=== PATIENT | male | born 1955 | race Caucasian/White ===

== ENCOUNTER 2020-06-30 10:03 | Outpatient (REF) | payer MEDICARE, MEDICAID, SELFPAY ==
[2020-06-30 11:47] LABS: MANUAL DIFF FLAG NO
[2020-06-30 11:55] LABS: Basophils Absolute Auto 0.1 X10*3/uL (0.0-0.2); Basophils Percent Auto 0.5 % (0-2); Eosinophils Absolute Auto 0.1 X10*3/uL (0.0-0.4); Hematocrit 48.7 % (42-52); Hemoglobin 16.6 g/dl (14.0-18.0); Imm Gran Abs Auto 0.07 X10*3/uL (0.00-0.03); Imm Gran Pct Auto 0.6 % (0.0-0.4); Lymphocytes Absolute Auto 3.1 X10*3/uL (1.2-4.9); Lymphocytes Percent Auto 27.3 % (20-40); Mean Corpuscular HGB Conc 34.1 g/dl (31.0-36.0); Mean Corpuscular Volume 93.8 fL (80-98); Mean Platelet Volume 11.2 fL (9.4-12.4); Monocytes Absolute Auto 0.9 X10*3/uL (0.1-1.2); Monocytes Percent Auto 8.2 % (2-11); Neutrophils Absolute Auto 7.1 X10*3/uL (2.0-8.3); Neutrophils Percent Auto 62.4 % (45-73); Platelet Count 297 X10*3/uL (160-400); Red Blood Count 5.19 X10*6/uL (4.60-5.80); Red Cell Distribution Width 12.9 % (11.0-16.0); White Blood Count 11.4 X10*3/uL (4.8-10.8)
== END 2020-06-30 10:04 | disposition home or self-care (01) ==
LOC: HO.10HDL 10:03
PROVIDERS: Visit Provider Internal Medicine Pulmonary Disease
DX: Z91.09 Other allergy status, other than to drugs and biological substances (principal)
CPT/HCPCS: 36415; 82785; 85025; 86003

== ENCOUNTER 2020-07-11 11:34 | Emergency (ER) | payer MEDICARE, MEDICAID, SELFPAY ==
[2020-07-11 11:51] VITALS: BP 128/68; PULSE 71; RESP 16; TEMP 36.6; O2SAT 98; BMI 27.1
--- NOTE | 2020-07-11 11:57 | ED.LOWEXIN ---
HPI - Extremity Injury (Lower) General Chief Complaint: Extremity Injury, Lower Stated Complaint: ANKLE SWELLING Time Seen by Provider: 07/11/20 11:57 Source: patient History of Present Illness HPI Narrative: 64-year-old male with a past medical history of asthma hyperlipidemia, HTN, dm c/o left calf pain x1 week s/p walk /running up hill with associated left foot/ ankle ecchymosis/swelling. reports had muscle cramp to left calf and then pain radiated distally. admits to pain worse with ambulation /weight. Denies direct trauma / falls, numbness/tingling, history of clots, SOB Related Data Allergies Allergy/AdvReac Type Severity Reaction Status Date / Time simvastatin AdvReac Unknown myalgia Verified 05/10/20 00:00 From WELLBUTRIN Allergy Mild RASH Uncoded 06/16/20 16:10 REAGAN INHIBITORS Allergy Unknown cough,angio Uncoded 05/10/20 00:00 edema Review of Systems Review of Systems: Constitutional: No Weight loss, No Fever, No Chills Cardiovascular: No Chest Pain, No SOB Respiratory: No Cough, No Sputum Musculoskeletal: + joint pain, No Myalgias, + Joint Swelling, + Left calf pain Skin: No Skin Lesions, No rash, + ecchymosis to left foot/ankle Neuro: No Weakness, No Numbness, No Paresthesias Yes all other systems are reviewed and are negative [facility] Past Medical History Attestation statement: The following information was validated with the patient. Medical History Asthma High cholesterol HTN (hypertension) IDDM (insulin dependent diabetes mellitus) No known health problems Social History Social History Advance Directives: Yes Advance Directives on File: Yes Advance Directives Date on File: 06/30/20 Physical Exam Vital Signs: Vital Signs: Vital Signs Temp Pulse Resp BP Pulse Ox 07/11/20 11:51 97.9 F 71 16 128/68 98 Body Mass Index 27.1 Const: General: cooperative and healthy appearing Orientation/consciousness: patient oriented x3 Limitations: no limitations HENMT: Head: Yes normal to inspection Ears: hearing grossly normal bilaterally General nose exam: Normal external nose present Face and sinus: Yes normal facial exam Eyes: General: appearance normal, both eyes and all related structures EOM: EOMs intact bilaterally Neck: Neck: Yes normal visual inspection Resp: Effort & Inspection: normal respiratory effort Cardio: Rate: regular rate Skin: Rashes: no rashes Wounds: no wounds Neuro: General: patient oriented x3 Gait exam (Neuro): Normal gait present Extrem: Other: + left calf TTP, + L foot > ankle ecchymosis/swelling with lateral foot TTP. No ankle tenderness. FROM and NV intact . No crepitus Gomez test negative Course Course Course Narrative: -1248-- foot x-ray without acute or healing fracture. No acute findings - ultrasound without evidence of DVT - imaging results discussed with patient including worrisome signs and symptoms and strict return precautions. Patient is to follow-up with PCP MDM - Extremity Injury (Lower) MDM Narrative Medical decision making narrative: On exam VSS, NAD/ well-appearing. Left calf is tender with swelling /ecchymosis noted to left foot / ankle. Gomez test negative. Concern for DVT vs superficial ruptured vessel vs Achilles injury vs tendon/ligamental injury. Lower concern for fracture Plan: X-ray, ultrasound Discharge Plan Discharge Clinical Impression: Myalgia, Ecchymosis Calf pain Qualifiers: Laterality: left Qualified Code(s): M79.662 - Pain in left lower leg Patient Disposition: Home, Self-Care Instructions: Musculoskeletal Pain (ED) Additional Instructions: your x-ray did not show any acute fractures or dislocation The ultrasound was also negative for any blood clot Ice and elevate your leg at home You need to have close follow-up with her doctor If area is worsening, swelling increases, you have weakness, fever, or unable to ambulate return to the ED Referrals: Alfredo Lu MD [Primary Care Provider] - 5 days
--- NOTE | 2020-07-11 12:12 | US_ITS ---
EXAMINATION: US VENOUS ULTRASOUND WITH DOPPLER LOWER EXTREMITY, LEFT CLINICAL INFORMATION: Left lower extremity edema, pain. Assess for occult DVT. COMPARISON: Radiographs left foot 07/11/2020 TECHNIQUE: Ultrasound of the deep veins is performed from the hip to the calf with compression sonography and color and pulse Doppler assessment. Spectral analysis with color-flow imaging is performed. FINDINGS: There is normal venous compression and respiratory variation and augmented flow. The visualized common femoral vein, superficial femoral vein, profunda femoral vein, popliteal vein, and visualized mid calf peroneal and posterior tibial venous segments show no evidence of deep venous thrombosis. No popliteal fossa cyst. IMPRESSION: No DVT demonstrated in the left lower extremity.
--- NOTE | 2020-07-11 12:12 | XR_ITS ---
EXAMINATION: XR FOOT, LEFT CLINICAL INFORMATION: Foot swelling, ecchymosis COMPARISON: None TECHNIQUE: AP, lateral, and oblique views of the left foot. FINDINGS: There is no acute or healing fracture, dislocation, or destructive process. Mild joint narrowing interphalangeal joints third and fourth toes. No erosive changes. The retrocalcaneal recess is preserved. There is borderline posterior calcaneal spur and some focal mineralization proximal plantar fascia. The midfoot is unremarkable. IMPRESSION: 1. No acute or healing fracture, dislocation, destructive process. 2. Mineralization proximal plantar fascia. Small posterior calcaneal spur.
== END 2020-07-11 13:40 | disposition home or self-care (01) ==
PROVIDERS: Emergency Provider Emergency Medicine; PCP Family Medicine
DX: M79.662 Pain in left lower leg (principal); M79.10 Myalgia, unspecified site; R58 Hemorrhage, not elsewhere classified; I10 Essential (primary) hypertension; E11.9 Type 2 diabetes mellitus without complications; J45.909 Unspecified asthma, uncomplicated; E78.5 Hyperlipidemia, unspecified
CPT/HCPCS: 73630; 93971; 99284

== ENCOUNTER 2020-08-13 08:19 | Outpatient (REF) | payer MEDICARE, MEDICAID, SELFPAY ==
[2020-08-13 09:26] LABS: Estimated Average Glucose 154 mg/dL
[2020-08-13 09:43] LABS: Alanine Aminotransferase 25 U/L (0-40); Glucose Fasting 136 mg/dL (60-99)
[2020-08-13 09:51] LABS: Microalbum/Creatinine Ratio Ur 6.8 ug/mg cr
== END 2020-08-13 08:20 | disposition home or self-care (01) ==
LOC: HO.LAB 08:19
PROVIDERS: PCP Family Medicine; Visit Provider Family Medicine
DX: E11.9 Type 2 diabetes mellitus without complications (principal); E78.00 Pure hypercholesterolemia, unspecified; Z79.899 Other long term (current) drug therapy
CPT/HCPCS: 82043; 82550; 82947; 83036; 84460

== ENCOUNTER 2020-09-14 08:00 | Outpatient (REF) | payer MEDICARE, MEDICAID, SELFPAY | END 2020-09-14 08:01 | disposition home or self-care (01) | LOC: HO.MDS 08:00 | PROVIDERS: PCP Family Medicine; Visit Provider Internal Medicine Pulmonary Disease | DX: J45.909 Unspecified asthma, uncomplicated (principal) | CPT/HCPCS: 96372; J2357 ==

== ENCOUNTER → 2020-10-11 12:57 | Outpatient (BNVA) | payer MEDICARE, MEDICAID, SELFPAY | PROVIDERS: PCP Family Medicine; Visit Provider Urology | DX: E29.1 Testicular hypofunction (principal); Z79.899 Other long term (current) drug therapy | CPT/HCPCS: 96372; 99212 ==

== ENCOUNTER 2020-10-12 11:22 | Outpatient (REF) | payer MEDICARE, MEDICAID, SELFPAY | END 2020-10-12 11:23 | disposition home or self-care (01) | LOC: HO.MDS 11:22 | PROVIDERS: PCP Family Medicine; Visit Provider Internal Medicine Pulmonary Disease | DX: J45.50 Severe persistent asthma, uncomplicated (principal) | CPT/HCPCS: 96372; J2357 ==

== ENCOUNTER 2020-11-09 07:53 | Outpatient (REF) | payer MEDICARE, MEDICAID, SELFPAY | END 2020-11-09 07:54 | disposition home or self-care (01) | LOC: HO.MDS 07:53 | PROVIDERS: PCP Family Medicine; Visit Provider Internal Medicine Pulmonary Disease | DX: J45.50 Severe persistent asthma, uncomplicated (principal) | CPT/HCPCS: 96372; J2357 ==

== ENCOUNTER 2020-12-07 07:54 | Outpatient (REF) | payer MEDICARE, MEDICAID, SELFPAY | END 2020-12-07 07:55 | disposition home or self-care (01) | LOC: HO.MDS 07:54 | PROVIDERS: PCP Family Medicine; Visit Provider Internal Medicine Pulmonary Disease | DX: J45.50 Severe persistent asthma, uncomplicated (principal) | CPT/HCPCS: 96372; J2357 ==

== ENCOUNTER → 2020-12-16 10:27 | Outpatient (BNVA) | payer MEDICARE, MEDICAID, SELFPAY | PROVIDERS: PCP Family Medicine; Visit Provider Internal Medicine Pulmonary Disease ==

== ENCOUNTER 2021-01-11 08:57 | Outpatient (REF) | payer MEDICARE, MEDICAID, SELFPAY | END 2021-01-11 08:58 | disposition home or self-care (01) | LOC: HO.MDS 08:57 | PROVIDERS: PCP Family Medicine; Visit Provider Internal Medicine Pulmonary Disease | DX: J45.50 Severe persistent asthma, uncomplicated (principal) | CPT/HCPCS: 96372; J2357 ==

== ENCOUNTER → 2021-01-25 15:36 | Outpatient (BNVA) | payer MEDICARE, MEDICAID, SELFPAY | PROVIDERS: PCP Family Medicine; Visit Provider Internal Medicine | DX: J44.9 Chronic obstructive pulmonary disease, unspecified (principal); J45.50 Severe persistent asthma, uncomplicated; E29.1 Testicular hypofunction; Z79.899 Other long term (current) drug therapy | CPT/HCPCS: 99212 ==

== ENCOUNTER 2021-02-04 08:31 | Outpatient (REF) | payer MEDICARE, MEDICAID, SELFPAY ==
[2021-02-08 12:46] LABS: Testosterone, Total 1314 ng/dL (250-1100)
== END 2021-02-04 08:32 | disposition home or self-care (01) ==
LOC: HO.LAB 08:31
PROVIDERS: PCP Family Medicine; Visit Provider Urology
DX: E29.1 Testicular hypofunction (principal)
CPT/HCPCS: 36415; 84403

== ENCOUNTER 2021-02-06 08:57 | Outpatient (REF) | payer MEDICARE, MEDICAID, SELFPAY | END 2021-02-06 08:58 | disposition home or self-care (01) | LOC: HO.MDS 08:57 | PROVIDERS: PCP Family Medicine; Visit Provider Internal Medicine | DX: J45.50 Severe persistent asthma, uncomplicated (principal) | CPT/HCPCS: 96372; J2357 ==

== ENCOUNTER 2021-02-08 12:14 | Outpatient (REF) | payer MEDICARE, MEDICAID, SELFPAY ==
[2021-02-08 13:57] LABS: MANUAL DIFF FLAG NO
[2021-02-08 14:03] LABS: Basophils Absolute Auto 0.1 X10*3/uL (0.0-0.2); Basophils Percent Auto 0.5 % (0-2); Eosinophils Absolute Auto 0.1 X10*3/uL (0.0-0.4); Eosinophils Percent Auto 0.5 % (0-4); Hematocrit 48.7 % (42-52); Hemoglobin 16.2 g/dl (14.0-18.0); Imm Gran Abs Auto 0.07 X10*3/uL (0.00-0.03); Imm Gran Pct Auto 0.7 % (0.0-0.4); Lymphocytes Absolute Auto 2.6 X10*3/uL (1.2-4.9); Lymphocytes Percent Auto 25.1 % (20-40); Mean Corpuscular HGB Conc 33.3 g/dl (31.0-36.0); Mean Corpuscular Volume 96.1 fL (80-98); Mean Platelet Volume 11.8 fL (9.4-12.4); Monocytes Absolute Auto 0.9 X10*3/uL (0.1-1.2); Monocytes Percent Auto 8.8 % (2-11); Neutrophils Absolute Auto 6.6 X10*3/uL (2.0-8.3); Neutrophils Percent Auto 64.4 % (45-73); Platelet Count 311 X10*3/uL (160-400); Red Blood Count 5.07 X10*6/uL (4.60-5.80); Red Cell Distribution Width 13.2 % (11.0-16.0); White Blood Count 10.2 X10*3/uL (4.8-10.8)
[2021-02-08 14:46] LABS: Free T4 (Free Thyroxine) 0.96 ng/dL (0.71-1.85); Thyroid Stimulating Hormone 1.24 uIU/mL (0.32-4.0)
[2021-02-08 14:47] LABS: Alanine Aminotransferase 28 U/L (0-40); Albumin Level 4.4 g/dL (3.5-5.0); Alkaline Phosphatase 68 U/L (39-117); Anion Gap 14 (12-20); Aspartate Amino Transferase 25 U/L (5-37); Bilirubin Total 0.3 mg/dL (0.0-1.0); Blood Urea Nitrogen 12 mg/dL (9-16); Calcium 9.7 mg/dL (8.4-10.2); Carbon Dioxide 29 mmol/L (22-29); Chloride 101 mmol/L (96-108); Estimated Glomerular Filt Rate > 60; Glucose Random 126 mg/dL (60-115); Potassium 4.3 mmol/L (3.3-5.1); Sodium 140 mmol/L (135-145); Total Protein 7.1 g/dL (6.5-8.0)
[2021-02-08 14:54] LABS: Erythrocyte Sedimentation Rate 1 MM/HR (0-15)
== END 2021-02-08 12:15 | disposition home or self-care (01) ==
LOC: HO.10HDL 12:14
PROVIDERS: Internal Medicine; Visit Provider Family Medicine
DX: R63.4 Abnormal weight loss (principal)
CPT/HCPCS: 36415; 80053; 84439; 84443; 85025; 85652

== ENCOUNTER → 2021-02-14 08:44 | Outpatient (BNVA) | payer MEDICARE, MEDICAID, SELFPAY | PROVIDERS: PCP Family Medicine; Visit Provider Urology | DX: N40.0 Benign prostatic hyperplasia without lower urinary tract symptoms (principal); R59.0 Localized enlarged lymph nodes; E29.1 Testicular hypofunction; N52.9 Male erectile dysfunction, unspecified | CPT/HCPCS: 51798; 99212 ==

== ENCOUNTER 2021-03-07 08:59 | Outpatient (REF) | payer MEDICARE, MEDICAID, SELFPAY | END 2021-03-07 09:00 | disposition home or self-care (01) | LOC: HO.MDS 08:59 | PROVIDERS: PCP Family Medicine; Visit Provider Internal Medicine | DX: J45.50 Severe persistent asthma, uncomplicated (principal) | CPT/HCPCS: 96372; J2357 ==

== ENCOUNTER 2021-04-05 08:54 | Outpatient (REF) | payer MEDICARE, MEDICAID, SELFPAY | END 2021-04-05 08:55 | disposition home or self-care (01) | LOC: HO.MDS 08:54 | PROVIDERS: PCP Family Medicine; Visit Provider Internal Medicine | DX: J45.50 Severe persistent asthma, uncomplicated (principal) | CPT/HCPCS: 96372; J2357 ==

== ENCOUNTER 2021-04-17 14:00 | Outpatient (REF) | payer MEDICARE, MEDICAID, SELFPAY ==
[2021-04-17 15:08] LABS: Blood Urea Nitrogen 16 mg/dL (9-16); Estimated Glomerular Filt Rate > 60
== END 2021-04-17 14:01 | disposition home or self-care (01) ==
LOC: HO.LAB 14:00
PROVIDERS: PCP Family Medicine; Visit Provider Urology
DX: R59.0 Localized enlarged lymph nodes (principal)
CPT/HCPCS: 36415; 82565; 84520

== ENCOUNTER 2021-04-19 08:00 | Outpatient (REF) | payer MEDICARE, MEDICAID, SELFPAY ==
--- NOTE | ~2021-04-19 | XR_ITS ---
EXAMINATION: XR SHOULDER, RIGHT CLINICAL INFORMATION: Right shoulder pain COMPARISON: 01/12/2011 TECHNIQUE: Three views of the right shoulder. FINDINGS: There is no evidence of acute fracture or dislocation of the right shoulder. There is some spurring seen about the inferior glenohumeral joint with joint space maintained. There is some calcification about the coracoclavicular ligament without widening. XR/XR shoulder RT min 2V IMPRESSION: No evidence of acute fracture, dislocation, or calcific tendinitis of the right shoulder. Mild inferior glenohumeral joint degenerative change.
== END 2021-04-19 08:01 | disposition home or self-care (01) ==
LOC: HO.HOSX 08:00
PROVIDERS: Visit Provider Orthopaedic Surgery
DX: M25.511 Pain in right shoulder (principal); M54.12 Radiculopathy, cervical region
CPT/HCPCS: 73030; 99202

== ENCOUNTER → 2021-04-24 10:25 | Outpatient (BNVA) | payer MEDICARE, MEDICAID, SELFPAY | PROVIDERS: PCP Family Medicine; Visit Provider Internal Medicine | DX: J44.9 Chronic obstructive pulmonary disease, unspecified (principal); J30.9 Allergic rhinitis, unspecified; Z79.899 Other long term (current) drug therapy | CPT/HCPCS: 99212 ==

== ENCOUNTER 2021-04-25 10:22 | Outpatient (REF) | payer MEDICARE, MEDICAID, SELFPAY ==
--- NOTE | ~2021-04-25 | CT_ITS ---
EXAMINATION: CT ABDOMEN AND PELVIS WITH CONTRAST CLINICAL INFORMATION: Enlarged lymph nodes COMPARISON: Previous CT of the abdomen and pelvis August 2010 TECHNIQUE: Multidetector volumetric images were obtained from the superior aspect of the liver through the pubic symphysis following administration 85 mL of Omnipaque 350 intravenous contrast. Sagittal and coronal reformatted images were obtained on the technologist's workstation. Oral contrast: Yes This CT examination was performed using dose optimization techniques as appropriate, variously including the following: *Automated exposure control *Adjustment of mA and/or kV according to patient size (this includes techniques or standardized protocols for targeted exams where dose is matched to indication/reason for exam; i.e. extremities or head) *Use of iterative reconstruction technique DLP: 316 mGy-cm FINDINGS: LUNG BASES: The visualized lung bases are unremarkable. LIVER, GALLBLADDER, AND BILIARY TREE: There is a small calcification in the right lobe of the liver. The liver is otherwise unremarkable. The gallbladder is unremarkable with no evidence of radiopaque gallstones, gallbladder wall thickening, or obvious pericholecystic inflammatory changes. PANCREAS: Unremarkable. SPLEEN: Unremarkable. ADRENAL GLANDS: Unremarkable. KIDNEYS AND URETERS: There is question of a tiny 1 mm stone in the upper pole of the right kidney. There is a 1 cm low-attenuation lesion in the lower pole right kidney suggestive of a cyst. There is mild cortical thinning or scarring in the upper pole of the left kidney. BLADDER: Not optimally distended. There may be mild diffuse bladder wall thickening. GASTROINTESTINAL TRACT: The small and large bowel are unremarkable. The appendix is unremarkable. ABDOMINAL WALL: No significant hernia is appreciated. LYMPH NODES: No enlarged lymph nodes are seen in the abdomen or pelvis. There is a shotty left inguinal lymphadenopathy. There is a slightly prominent right inguinal lymph node or 2 adjacent lymph nodes measuring 1.1 x 1.1 x 2.8 cm in AP transverse and longitudinal dimension. VASCULAR: There is evidence of atherosclerotic disease. No aneurysm is seen. PELVIC VISCERA: Unremarkable. OSSEOUS STRUCTURES: There are degenerative changes of the spine. CT/CT abdomen pelvis w con IMPRESSION: No adenopathy is seen in the abdomen and pelvis. Prominent right inguinal lymph node. Question mild diffuse bladder wall thickening. Small right renal cyst and question tiny nonobstructing right renal stone. Mild cortical thinning or scarring in the upper pole of the left kidney.
[2021-04-25] MEDS: iohexoL 350 MG/ML 100 ML INFUS..BTL 85 ML IV (11:00)
== END 2021-04-25 10:23 | disposition home or self-care (01) ==
LOC: HO.CT 10:22
PROVIDERS: PCP Family Medicine; Visit Provider Urology
DX: R59.0 Localized enlarged lymph nodes (principal)
CPT/HCPCS: 74177; Q9967

== ENCOUNTER 2021-04-27 08:43 | Outpatient (REF) | payer MEDICARE, MEDICAID, SELFPAY ==
--- NOTE | ~2021-04-27 | XR_ITS ---
EXAMINATION: XR CERVICAL SPINE CLINICAL INFORMATION: Neck pain with radiculopathy. COMPARISON: 02/27/2019 TECHNIQUE: Five views of the cervical spine, inclusive of flexion and extension views, were obtained. FINDINGS: No abnormal prevertebral soft tissue swelling is seen. No acute cervical spine fractures identified. There is significant degenerative disc disease with increased sclerosis, disc space narrowing, and prominent spurring C3-C7. There is some anterior neural foraminal encroachment from spurring of the joints of [place] seen at the C5-C6 and C6-C7 levels bilaterally. XR/XR cervical spine min 6V IMPRESSION: Cervical spondylosis C3-C7, as described. No acute fracture.
== END 2021-04-27 08:44 | disposition home or self-care (01) ==
LOC: HO.XRAY 08:43
PROVIDERS: PCP Family Medicine; Visit Provider Family Medicine
DX: M54.2 Cervicalgia (principal); M54.12 Radiculopathy, cervical region
CPT/HCPCS: 72052

== ENCOUNTER 2021-05-03 08:57 | Outpatient (REF) | payer MEDICARE, MEDICAID, SELFPAY | END 2021-05-03 08:58 | disposition home or self-care (01) | LOC: HO.MDS 08:57 | PROVIDERS: PCP Family Medicine; Visit Provider Internal Medicine | DX: J45.50 Severe persistent asthma, uncomplicated (principal) | CPT/HCPCS: 96372; J2357 ==

== ENCOUNTER 2021-05-31 08:26 | Outpatient (REF) | payer MEDICARE, MEDICAID, SELFPAY | END 2021-05-31 08:27 | disposition home or self-care (01) | LOC: HO.MDS 08:26 | PROVIDERS: PCP Family Medicine; Visit Provider Internal Medicine | DX: J45.50 Severe persistent asthma, uncomplicated (principal) | CPT/HCPCS: 96372; J2357 ==

== ENCOUNTER 2021-06-28 10:27 | Outpatient (REF) | payer MEDICARE, MEDICAID, SELFPAY | END 2021-06-28 10:28 | disposition home or self-care (01) | LOC: HO.MDS 10:27 | PROVIDERS: PCP Family Medicine; Visit Provider Internal Medicine | DX: J45.50 Severe persistent asthma, uncomplicated (principal) | CPT/HCPCS: 96372; J2357 ==

== ENCOUNTER 2021-07-15 07:35 | Outpatient (REF) | payer MEDICARE, MEDICAID, SELFPAY ==
[2021-07-15 08:44] LABS: Estimated Average Glucose 166 mg/dL; Hemoglobin A1c % 7.4 %
[2021-07-15 09:24] LABS: Alanine Aminotransferase 27 U/L (0-40); Anion Gap 11 (12-20); Carbon Dioxide 32 mmol/L (22-29); Chloride 103 mmol/L (96-108); Cholesterol 147 mg/dL; Estimated Glomerular Filt Rate > 60; Glucose Fasting 108 mg/dL (60-99); HDL Cholesterol 35 mg/dL; LDL Cholesterol Calculated 81 mg/dl; Potassium 5.1 mmol/L (3.3-5.1); Sodium 141 mmol/L (135-145); Triglycerides 155 mg/dL
== END 2021-07-15 07:36 | disposition home or self-care (01) ==
LOC: HO.LAB 07:35
PROVIDERS: PCP Family Medicine; Visit Provider Family Medicine
DX: I10 Essential (primary) hypertension (principal); E11.9 Type 2 diabetes mellitus without complications; E78.00 Pure hypercholesterolemia, unspecified; Z79.899 Other long term (current) drug therapy
CPT/HCPCS: 36415; 80051; 80061; 82550; 82565; 82947; 83036; 84460

== ENCOUNTER → 2021-07-25 09:08 | Outpatient (BNVA) | payer MEDICARE, MEDICAID, SELFPAY | PROVIDERS: PCP Family Medicine; Visit Provider Internal Medicine | DX: J30.9 Allergic rhinitis, unspecified (principal); J44.9 Chronic obstructive pulmonary disease, unspecified | CPT/HCPCS: 99212 ==

== ENCOUNTER 2021-07-26 09:56 | Outpatient (REF) | payer MEDICARE, MEDICAID, SELFPAY | END 2021-07-26 09:57 | disposition home or self-care (01) | LOC: HO.MDS 09:56 | PROVIDERS: PCP Family Medicine; Visit Provider Internal Medicine | DX: J45.50 Severe persistent asthma, uncomplicated (principal) | CPT/HCPCS: 96372; J2357 ==

== ENCOUNTER → 2021-08-07 09:04 | Outpatient (BNVA) | payer MEDICARE, MEDICAID, SELFPAY | PROVIDERS: PCP Family Medicine; Visit Provider Internal Medicine | DX: J45.50 Severe persistent asthma, uncomplicated (principal); J44.9 Chronic obstructive pulmonary disease, unspecified; J30.9 Allergic rhinitis, unspecified; Z79.51 Long term (current) use of inhaled steroids | CPT/HCPCS: 99212 ==

== ENCOUNTER 2021-08-15 09:16 | Outpatient (REF) | payer MEDICARE, MEDICAID, SELFPAY ==
--- NOTE | ~2021-08-15 | CT_ITS ---
EXAMINATION: CT ABDOMEN AND PELVIS WITHOUT CONTRAST CLINICAL INFORMATION: Left mid quadrant mass. Question hernia. COMPARISON: Previous CT of the abdomen and pelvis February 2021. TECHNIQUE: Multidetector volumetric imaging was performed from the superior aspect of the liver through the pubic symphysis. Sagittal and coronal reformatted images were obtained on the technologist's workstation. This CT examination was performed using dose optimization techniques as appropriate, variously including the following: *Automated exposure control *Adjustment of mA and/or kV according to patient size (this includes techniques or standardized protocols for targeted exams where dose is matched to indication/reason for exam; i.e. extremities or head) *Use of iterative reconstruction technique DLP: 420 mGy-cm. FINDINGS: LUNG BASES: The visualized lung bases are unremarkable. LIVER, GALLBLADDER, AND BILIARY TREE: There is a small calcification in the right lobe of the liver that is stable. The liver is otherwise unremarkable. The gallbladder is unremarkable. There is no biliary duct dilatation. PANCREAS: Unremarkable. SPLEEN: Unremarkable. ADRENAL GLANDS: Unremarkable. KIDNEYS AND URETERS: The kidneys are normal in size, shape, and attenuation. No hydronephrosis, hydroureter, or calculi seen. No perinephric stranding. BLADDER: Unremarkable. GASTROINTESTINAL TRACT: The small and large bowel are unremarkable. The appendix is unremarkable. ABDOMINAL WALL: There is slight stranding of the fat of the left abdominal wall overlying the left rectus muscle, for example axial image 52. No focal mass, hernia or fluid collection is seen. LYMPH NODES: Normal. VASCULAR: There is evidence of atherosclerotic disease. PELVIC VISCERA: Unremarkable. OSSEOUS STRUCTURES: There are degenerative changes of the spine. CT/CT abdomen pelvis wo con IMPRESSION: No abdominal wall mass or hernia seen. Mild asymmetric fat stranding over the left rectus muscle. Severe atherosclerotic disease.
== END 2021-08-15 09:17 | disposition home or self-care (01) ==
LOC: HO.CT 09:16
PROVIDERS: PCP Family Medicine; Visit Provider Family Medicine
DX: R22.2 Localized swelling, mass and lump, trunk (principal)
CPT/HCPCS: 74176

== ENCOUNTER → 2021-08-16 13:11 | Outpatient (BNVA) | payer MEDICARE, MEDICAID, SELFPAY | PROVIDERS: PCP Family Medicine; Visit Provider Urology | DX: N40.0 Benign prostatic hyperplasia without lower urinary tract symptoms (principal); N52.9 Male erectile dysfunction, unspecified | CPT/HCPCS: 99212 ==

== ENCOUNTER 2021-08-23 09:51 | Outpatient (REF) | payer MEDICARE, MEDICAID, SELFPAY | END 2021-08-23 09:52 | disposition home or self-care (01) | LOC: HO.MDS 09:51 | PROVIDERS: PCP Family Medicine; Visit Provider Internal Medicine | DX: J45.50 Severe persistent asthma, uncomplicated (principal) | CPT/HCPCS: 96372; J2357 ==

== ENCOUNTER 2021-09-20 10:02 | Outpatient (REF) | payer MEDICARE, MEDICAID, SELFPAY | END 2021-09-20 10:03 | disposition home or self-care (01) | LOC: HO.MDS 10:02 | PROVIDERS: PCP Family Medicine; Visit Provider Internal Medicine | DX: J45.50 Severe persistent asthma, uncomplicated (principal) | CPT/HCPCS: 96372; J2357 ==

== ENCOUNTER 2021-10-05 08:53 | Outpatient (REF) | payer MEDICARE, MEDICAID, SELFPAY ==
[2021-10-05 10:28] LABS: Hematocrit 45.4 % (42.0-52.0); Hemoglobin 15.6 g/dl (14.0-18.0); Mean Corpuscular HGB Conc 34.4 g/dl (31.0-36.0); Mean Corpuscular Volume 93.2 fL (80.0-98.0); Platelet Count 272 X10*3/uL (160-400); Red Blood Count 4.87 X10*6/uL (4.60-5.80); Red Cell Distribution Width 13.5 % (11.0-16.0); White Blood Count 9.2 X10*3/uL (4.8-10.8)
[2021-10-05 11:26] LABS: PSA,Total (Free>4and<10) 3.57 ng/mL (0.00-4.00)
[2021-10-12 11:15] LABS: Testosterone, Total 1340 ng/dL (250-1100)
== END 2021-10-05 08:54 | disposition home or self-care (01) ==
LOC: HO.10HDL 08:53
PROVIDERS: Visit Provider Urology
DX: Z12.5 Encounter for screening for malignant neoplasm of prostate (principal); E29.1 Testicular hypofunction; N13.8 Other obstructive and reflux uropathy; N40.1 Benign prostatic hyperplasia with lower urinary tract symptoms
CPT/HCPCS: 36415; 84153; 84403; 85027

== ENCOUNTER → 2021-10-10 12:46 | Outpatient (BNVA) | payer MEDICARE, MEDICAID, SELFPAY | PROVIDERS: PCP Family Medicine; Visit Provider Urology | DX: Z13.89 Encounter for screening for other disorder (principal) | CPT/HCPCS: Q3014 ==

== ENCOUNTER 2021-10-18 10:01 | Outpatient (REF) | payer MEDICARE, MEDICAID, SELFPAY | END 2021-10-18 10:02 | disposition home or self-care (01) | LOC: HO.MDS 10:01 | PROVIDERS: PCP Family Medicine; Visit Provider Internal Medicine | DX: J45.50 Severe persistent asthma, uncomplicated (principal) | CPT/HCPCS: 96372; J2357 ==

== ENCOUNTER 2021-10-30 20:07 | Emergency (ER) | payer MEDICARE, MEDICAID, SELFPAY ==
--- NOTE | ~2021-10-30 | XR_ITS ---
EXAMINATION: XR FOOT, LEFT CLINICAL INFORMATION: Infection. Concern for osteomyelitis. COMPARISON: None TECHNIQUE: AP, lateral, and oblique views of the left foot. FINDINGS: The bones and soft tissues are normal. No fracture. Alignment is anatomic. Joint spaces are maintained. XR/XR foot LT min 3V IMPRESSION: Normal left foot.
[2021-10-30 20:16] VITALS: BP 146/56; PULSE 79; RESP 16; TEMP 36.8; O2SAT 97; BMI 26.6
--- NOTE | 2021-10-30 20:35 | ED_ITS ---
HPI - Skin/Abscess/Foreign Bdy General Chief complaint: Skin/Abscess/Foreign Body Stated complaint: left foot painful and swollen Time Seen by Provider: 10/30/21 20:32 History of Present Illness HPI narrative: Patient complains of painful red area on the top of his left foot for 2-3 days, no fever no injury Related Data Home Medications Medication Instructions Recorded Confirmed acetaminophen 325 mg tablet 650 mg PO Q4H PRN 08/19/20 01/25/21 fluticasone propionate 110 2 puff PO BID 08/19/20 01/25/21 mcg/actuation HFA aerosol inhaler fluticasone propionate 50 1 spray INTRANASAL DAILY 08/19/20 01/25/21 mcg/actuation nasal spray,suspension hydrochlorothiazide 12.5 mg 12.5 mg PO DAILY 08/19/20 01/25/21 tablet insulin detemir U-100 100 unit SUBCUT 08/19/20 01/25/21 unit/mL subcutaneous solution losartan 50 mg tablet 50 mg PO DAILY 08/19/20 01/25/21 metformin 1,000 mg tablet 1,000 mg PO BID 08/19/20 01/25/21 montelukast 10 mg tablet 10 mg PO DAILY 08/19/20 01/25/21 rosuvastatin 5 mg tablet 5 mg PO DAILY 08/19/20 01/25/21 trazodone 100 mg tablet 500 mg PO BEDTIME 08/19/20 01/25/21 umeclidinium 62.5 INHALATION 08/19/20 01/25/21 mcg/actuation blister powder for inhalation blood sugar diagnostic #10 ea 10/11/20 01/25/21 insulin syringe-needle U-100 #10 ea 10/11/20 01/25/21 0.5 mL 31 gauge x 5/16 lancets 28 gauge #100 ea 10/11/20 01/25/21 albuterol sulfate 90 2 puff INHALATION Q6H PRN 01/25/21 01/25/21 mcg/actuation aerosol inhaler (ProAir HFA) naproxen 500 mg tablet 500 mg PO DAILY PRN tab 04/24/21 cetirizine 10 mg tablet 10 mg PO DAILY 08/07/21 omeprazole 20 mg 20 mg PO DAILY PRN 08/07/21 capsule,delayed release meclizine 12.5 mg tablet 12.5 mg PO BID 08/16/21 omeprazole 40 mg 40 mg PO DAILY 08/16/21 capsule,delayed release metoprolol succinate 25 mg 25 mg PO DAILY 10/10/21 tablet,extended release 24 hr Previous Rx's Medication Instructions Recorded Xolair 150 mg/mL subcutaneous 300 mg (2 mL) SUBCUT Q4W 30 Days 01/31/21 syringe (omalizumab) #2 ml NS imipramine HCl 10 mg tablet 10 mg PO BID 90 Days #180 tab 06/08/21 tadalafil 5 mg tablet 5 mg PO DAILY PRN 90 Days #90 tab 07/04/21 syringe with needle, safety 3 mL #4 ea 08/09/21 22 gauge x 1 1/2 (BD Eclipse Luer-Stefan) terazosin 10 mg capsule 10 mg PO BEDTIME 90 Days #90 cap 08/16/21 azithromycin 250 mg tablet 250 mg PO 3XW #45 tab 09/06/21 tadalafil 10 mg tablet 10 mg PO DAILY 90 Days #90 tab 10/10/21 testosterone cypionate 200 mg/mL 100 mg (0.5 mL) IM QWEEK 28 Days 10/10/21 intramuscular oil #2 ml (Depo-Testosterone) cephalexin 500 mg tablet 500 mg PO QID 7 Days #28 tab 10/30/21 Allergies Allergy/AdvReac Type Severity Reaction Status Date / Time REAGAN Inhibitors Allergy Mild Unknown Verified 10/30/21 20:22 bupropion [From Allergy Mild Unknown Verified 10/30/21 20:22 Wellbutrin] simvastatin AdvReac Unknown myalgia Verified 10/30/21 20:22 Review of Systems Verdana 4l Review of Systems: Verdana 4d Verdana 4d Positive for red area on left foot which is painful Negatives no fever no chills no dizziness no weakness no headache no neck pain no back pain no chest pain no ankle or knee pain no wound no numbness weakness or tingling no calf pain VerdanaVerdana 4d Yes all other systems are reviewed and are negative PMFSH Past Medical History Source: nursing notes reviewed Medical History Allergic rhinitis Asthma BPH w/o urinary obs/LUTS High cholesterol HTN (hypertension) Hypogonadism in male Hypogonadism male IDDM (insulin dependent diabetes mellitus) No known health problems Urge incontinence Social History Social History Advance Directives: Yes Advance Directives on File: Yes Advance Directives Date on File: 06/30/20 Physical Exam Verdana 4l Vital Signs: Verdana 4d Verdana 4d Vital Signs: Verdana 4d Verdana 4Bd Last Vital Signs Verdana 4d [employer] New 4d Temp 98.2 F 10/30/21 20:16 [employer] New 4d Pulse 79 10/30/21 20:16 [employer] New 4d Resp 16 10/30/21 20:16 BP 146/56 H 10/30/21 20:16 Pulse Ox 97 10/30/21 20:16 BMI result Body Mass Index 26.6 General appearance comfortable no distress Head is normocephalic atraumatic Neck is supple Respiratory no distress Extremities full range of motion x4 including the right foot toes ankle and knee There is no edema there is no calf tenderness or swelling The left foot the dorsal foot has a red patch that is mildly indurated but not fluctuant with intact skin it is mildly warm and tender to the touch there is no discharge there is no wound there is no break in the skin and it is consistent with a cellulitis It is neurovascular intact distal Course Course Course Narrative: X-ray of left foot was negative with no evidence of osteomyelitis or any bony injury The exam was consistent with a cellulitis of the left foot with no sign of abscess and patient was treated with Keflex and discharged Discharge Plan Discharge Clinical Impression: Cellulitis Patient Disposition: Home, Self-Care Additional Instructions: The red area on her foot looks infected so we are treating with antibiotic Keflex Return to the ER any time for spreading redness, worse pain and swelling, fever, red stripe up of your leg, any worse condition or any concerns Return to ER in 2-3 days for recheck if redness is not improving Prescriptions: New cephalexin 500 mg tablet 500 mg PO QID 7 Days Qty: 28 0RF No Action Xolair 150 mg/mL syringe 300 mg subcut Q4W 30 Days Qty: 2 11RF imipramine HCl 10 mg tablet 10 mg PO BID 90 Days Qty: 180 2RF tadalafil 5 mg tablet 5 mg PO DAILY PRN (Reason: sexual activity) 90 Days Qty: 90 1RF (DME) BD Eclipse Luer-Stefan 3 mL 22 gauge x 1 1/2 syringe See Rx Instructions .ROUTE .MEDSUPPLY Qty: 4 6RF Rx Instructions: As directed azithromycin 250 mg tablet 250 mg PO 3XW Qty: 45 4RF fluticasone propionate 50 mcg/actuation spray,suspension 1 spray intranasal DAILY 0RF Flovent HFA 110 mcg/actuation HFA aerosol inhaler 2 puff PO BID 0RF hydrochlorothiazide 12.5 mg tablet 12.5 mg PO DAILY 0RF losartan 50 mg tablet 50 mg PO DAILY 0RF Incruse Ellipta 62.5 mcg/actuation blister with device inhalation 0RF Levemir U-100 Insulin 100 unit/mL solution subcut 0RF rosuvastatin 5 mg tablet 5 mg PO DAILY 0RF metformin 1,000 mg tablet 1,000 mg PO BID 0RF montelukast 10 mg tablet 10 mg PO DAILY 0RF trazodone 100 mg tablet 500 mg PO BEDTIME 0RF acetaminophen 325 mg tablet 650 mg PO Q4H PRN (Reason: fever) 0RF naproxen 500 mg tablet 500 mg PO DAILY PRN0RF omeprazole 20 mg capsule,delayed release(DR/EC) 20 mg PO DAILY PRN0RF (DME) insulin syringe-needle U-100 0.5 mL 31 gauge x 5/16 syringe See Rx Instructions syringe .ROUTE TID Qty: 10 0RF Rx Instructions: As directed (DME) lancets 28 gauge misc See Rx Instructions lancet topical BID Qty: 100 0RF Rx Instructions: As directed (DME) FreeStyle Lite Strips Strip See Rx Instructions strip Not Applicable BID Qty: 10 0RF Rx Instructions: As directed albuterol sulfate [ProAir HFA] 90 mcg/actuation HFA aerosol inhaler 2 puff inhalation Q6H PRN0RF meclizine 12.5 mg tablet 12.5 mg PO BID 0RF omeprazole 40 mg capsule,delayed release(DR/EC) 40 mg PO DAILY 0RF terazosin 10 mg capsule 10 mg PO BEDTIME 90 Days Qty: 90 1RF cetirizine 10 mg tablet 10 mg PO DAILY 0RF metoprolol succinate 25 mg tablet extended release 24 hr 25 mg PO DAILY 0RF tadalafil 10 mg tablet 10 mg PO DAILY 90 Days Qty: 90 1RF testosterone cypionate [Depo-Testosterone] 200 mg/mL oil 100 mg IM QWEEK 28 Days Qty: 2 5RF Interventions: ED Discharge Assessment Last Done: 10/30/21 22:03 Discharge Date/Time: 10/30/21 22:05
[2021-10-30] MEDS: cephALEXin 500 MG CAPSULE PO (21:58)
== END 2021-10-30 22:05 | disposition home or self-care (01) ==
PROVIDERS: Emergency Provider Internal Medicine; PCP Family Medicine
DX: L03.116 Cellulitis of left lower limb (principal); M79.672 Pain in left foot; I10 Essential (primary) hypertension; E11.9 Type 2 diabetes mellitus without complications; Z79.4 Long term (current) use of insulin
CPT/HCPCS: 73630; 99283; 99284

== ENCOUNTER → 2021-11-09 08:50 | Outpatient (BNVA) | payer MEDICARE, MEDICAID, SELFPAY | PROVIDERS: PCP Family Medicine; Visit Provider Internal Medicine | DX: J45.50 Severe persistent asthma, uncomplicated (principal); J30.9 Allergic rhinitis, unspecified | CPT/HCPCS: 99212 ==

== ENCOUNTER 2021-11-15 10:18 | Outpatient (REF) | payer MEDICARE, MEDICAID, SELFPAY | END 2021-11-15 10:19 | disposition home or self-care (01) | LOC: HO.MDS 10:18 | PROVIDERS: PCP Family Medicine; Visit Provider Internal Medicine | DX: J45.50 Severe persistent asthma, uncomplicated (principal) | CPT/HCPCS: 96372; J2357 ==

== ENCOUNTER 2021-12-13 09:59 | Outpatient (REF) | payer MEDICARE, MEDICAID, SELFPAY | END 2021-12-13 10:00 | disposition home or self-care (01) | LOC: HO.MDS 09:59 | PROVIDERS: Visit Provider Internal Medicine | DX: J45.50 Severe persistent asthma, uncomplicated (principal) | CPT/HCPCS: 96372; J2357 ==

== ENCOUNTER 2022-01-10 09:53 | Outpatient (REF) | payer MEDICARE, MEDICAID, SELFPAY | END 2022-01-10 09:54 | disposition home or self-care (01) | LOC: HO.MDS 09:53 | PROVIDERS: Visit Provider Internal Medicine | DX: J45.50 Severe persistent asthma, uncomplicated (principal) | CPT/HCPCS: 96372; J2357 ==

== ENCOUNTER 2022-01-26 10:13 | Outpatient (REF) | payer MEDICARE, MEDICAID, SELFPAY ==
--- NOTE | ~2022-01-26 | CT_ITS ---
EXAMINATION: CT HEAD AND CT SINUSES WITHOUT CONTRAST CLINICAL INFORMATION: Sinonasal polyps. Anosmia, headaches. COMPARISON: None TECHNIQUE: 5 mm thin axial and reformatted 2 mm thin sagittal and coronal images of brain were obtained. Subsequently axial 2 mm thin and reformatted 2 mm thin coronal and sagittal images of sinuses were obtained. DLP: 860 mGy-cm FINDINGS: BRAIN: There is no acute intra-axial, extra-axial bleed, masses or midline shift. There is no acute infarct evolution. There is no edema. The lateral ventricles are symmetrical in size and configuration without enlargement. The daily to white matter differentiation is maintained normal. Bone windows reveal no calvarial abnormality. There is no scalp soft tissue abnormality. Visualized bilateral paranasal sinuses are clear. SINUS: There is mild mucoperiosteal thickening bilateral maxillary, sphenoid, ethmoid and frontal sinuses with no air-fluid level seen. The bony sinus tamayo are intact. Bilateral ostiomeatal complex and frontoethmoidal recesses are widely patent. There is a chirag bullosa of left middle turbinate. There is mild deviation of nasal septum to the right with a small bony spur. The nasopharyngeal, nasal cavity airway is widely patent. Visualized nasal bone, bilateral bony orbits and maxillofacial bones are normal. There is mild flattening of the left mandibular condyle from degenerative arthritic changes. The mastoid sinuses are clear. Visualized craniovertebral junction and C1 and C2 alignment is normal. CT/CT head/brain wo con IMPRESSION: No acute intracranial process seen. Chronic pansinusitis with widely patent drainage pathways. The bony sinus tamayo are intact. There is mild deviation of nasal septum with a small bony spur and a chirag bullosa of left middle turbinate.
== END 2022-01-26 10:14 | disposition home or self-care (01) ==
LOC: HO.CT 10:13
PROVIDERS: Visit Provider Otolaryngology
DX: R43.0 Anosmia (principal); R51.9 Headache, unspecified; J33.8 Other polyp of sinus
CPT/HCPCS: 70450; 70486

== ENCOUNTER → 2022-02-05 13:18 | Outpatient (BNVA) | payer MEDICARE, MEDICAID, SELFPAY | PROVIDERS: PCP Family Medicine; Visit Provider Internal Medicine | DX: J44.9 Chronic obstructive pulmonary disease, unspecified (principal); J30.9 Allergic rhinitis, unspecified | CPT/HCPCS: 99212 ==

== ENCOUNTER 2022-02-06 06:29 | Outpatient (REF) | payer MEDICARE, MEDICAID, SELFPAY ==
[2022-02-06 07:53] LABS: Estimated Average Glucose 171 mg/dL; Hemoglobin A1c % 7.6 %
[2022-02-06 08:19] LABS: Alanine Aminotransferase 32 U/L (0-40); Anion Gap 14 (12-20); Aspartate Amino Transferase 32 U/L (5-37); Blood Urea Nitrogen 21 mg/dL (9-16); Carbon Dioxide 29 mmol/L (22-29); Chloride 103 mmol/L (96-108); Estimated Glomerular Filt Rate > 60; Glucose Fasting 128 mg/dL (60-99); Potassium 5.1 mmol/L (3.3-5.1); Sodium 141 mmol/L (135-145)
[2022-02-06 09:25] LABS: Creatinine Urine 116.32 mg/dL; Microalbum/Creatinine Ratio Ur 9.4 ug/mg cr
== END 2022-02-06 06:30 | disposition home or self-care (01) ==
LOC: HO.MDS 06:29
PROVIDERS: Absent Provider Family Medicine; PCP Family Medicine; Visit Provider Internal Medicine
DX: J45.50 Severe persistent asthma, uncomplicated (principal); E11.9 Type 2 diabetes mellitus without complications; I10 Essential (primary) hypertension; E78.00 Pure hypercholesterolemia, unspecified; Z79.899 Other long term (current) drug therapy
CPT/HCPCS: 36415; 80051; 82043; 82550; 82565; 82947; 83036; 84450; 84460; 84520; 96372; J2357

== ENCOUNTER 2022-02-08 09:48 | Outpatient (REF) | payer MEDICARE, MEDICAID, SELFPAY ==
[2022-02-08 10:36] LABS: COVID-19 Test Negative (Negative); IDNOW Serial# 16C4AD1C
== END 2022-02-08 09:49 | disposition home or self-care (01) ==
LOC: HO.LAB 09:48
PROVIDERS: PCP Family Medicine; Visit Provider Internal Medicine
DX: Z20.822 Contact with and (suspected) exposure to COVID-19 (principal)
CPT/HCPCS: 87635; C9803

== ENCOUNTER → 2022-02-21 09:48 | Outpatient (BNVA) | payer MEDICARE, MEDICAID, SELFPAY | PROVIDERS: PCP Family Medicine; Visit Provider Internal Medicine | DX: J44.9 Chronic obstructive pulmonary disease, unspecified (principal); J45.50 Severe persistent asthma, uncomplicated; J30.9 Allergic rhinitis, unspecified; Z79.899 Other long term (current) drug therapy | CPT/HCPCS: 99212 ==

== ENCOUNTER 2022-02-28 10:03 | Outpatient (REF) | payer MEDICARE, MEDICAID, SELFPAY | END 2022-02-28 10:04 | disposition home or self-care (01) | LOC: HO.MDS 10:03 | PROVIDERS: Visit Provider Internal Medicine | DX: J45.50 Severe persistent asthma, uncomplicated (principal) | CPT/HCPCS: 96372; J2357 ==

== ENCOUNTER 2022-03-28 09:46 | Outpatient (REF) | payer MEDICARE, MEDICAID, SELFPAY | END 2022-03-28 09:47 | disposition home or self-care (01) | LOC: HO.MDS 09:46 | PROVIDERS: Visit Provider Internal Medicine | DX: J45.50 Severe persistent asthma, uncomplicated (principal); J44.9 Chronic obstructive pulmonary disease, unspecified | CPT/HCPCS: 96372; 99212; J2357 ==

== ENCOUNTER 2022-04-07 07:58 | Outpatient (REF) | payer MEDICARE, MEDICAID, SELFPAY ==
[2022-04-07 08:32] LABS: Hematocrit 45.4 % (42.0-52.0); Hemoglobin 15.5 g/dl (14.0-18.0); Mean Corpuscular HGB Conc 34.1 g/dl (31.0-36.0); Mean Corpuscular Hemoglobin 31.8 pg (27.0-33.0); Mean Platelet Volume 10.8 fL (9.4-12.4); Platelet Count 293 X10*3/uL (160-400); Red Blood Count 4.88 X10*6/uL (4.60-5.80); Red Cell Distribution Width 13.2 % (11.0-16.0); White Blood Count 10.1 X10*3/uL (4.8-10.8)
[2022-04-07 09:27] LABS: Prostate Specific Antigen 4.84 ng/mL (<0.05-4.0)
[2022-04-12 10:32] LABS: Testosterone, Total 761 ng/dL (250-1100)
== END 2022-04-07 07:59 | disposition home or self-care (01) ==
LOC: HO.LAB 07:58
PROVIDERS: PCP Family Medicine; Visit Provider Urology
DX: Z12.5 Encounter for screening for malignant neoplasm of prostate (principal); E29.1 Testicular hypofunction
CPT/HCPCS: 36415; 84153; 84403; 85027

== ENCOUNTER → 2022-04-12 10:44 | Outpatient (BNVA) | payer MEDICARE, MEDICAID, SELFPAY | PROVIDERS: PCP Family Medicine; Visit Provider Urology | DX: N40.1 Benign prostatic hyperplasia with lower urinary tract symptoms (principal); N13.8 Other obstructive and reflux uropathy; E29.1 Testicular hypofunction; N52.01 Erectile dysfunction due to arterial insufficiency | CPT/HCPCS: 99212 ==

== ENCOUNTER 2022-04-26 10:03 | Outpatient (REF) | payer MEDICARE, MEDICAID, SELFPAY | END 2022-04-26 10:04 | disposition home or self-care (01) | LOC: HO.MDS 10:03 | PROVIDERS: Visit Provider Internal Medicine | DX: J45.50 Severe persistent asthma, uncomplicated (principal) | CPT/HCPCS: 96372; J2357 ==

== ENCOUNTER 2022-05-24 08:45 | Outpatient (REF) | payer MEDICARE, MEDICAID, SELFPAY | END 2022-05-24 08:46 | disposition home or self-care (01) | LOC: HO.MDS 08:45 | PROVIDERS: Visit Provider Internal Medicine | DX: J45.50 Severe persistent asthma, uncomplicated (principal) | CPT/HCPCS: 96372 ==

== ENCOUNTER → 2022-05-30 09:29 | Outpatient (BNVA) | payer MEDICARE, MEDICAID, SELFPAY | PROVIDERS: PCP Family Medicine; Visit Provider Internal Medicine | DX: J44.9 Chronic obstructive pulmonary disease, unspecified (principal); J45.50 Severe persistent asthma, uncomplicated; J30.9 Allergic rhinitis, unspecified | CPT/HCPCS: 99212 ==

== ENCOUNTER 2022-06-21 09:29 | Outpatient (REF) | payer MEDICARE, OTHER, SELFPAY | END 2022-06-21 09:30 | disposition home or self-care (01) | LOC: HO.MDS 09:29 | PROVIDERS: Visit Provider Internal Medicine | DX: J45.50 Severe persistent asthma, uncomplicated (principal) | CPT/HCPCS: 96372; J2357 ==

== ENCOUNTER 2022-07-19 09:26 | Outpatient (REF) | payer MEDICARE, OTHER, SELFPAY | END 2022-07-19 09:27 | disposition home or self-care (01) | LOC: HO.MDS 09:26 | PROVIDERS: Visit Provider Internal Medicine | DX: J45.50 Severe persistent asthma, uncomplicated (principal) | CPT/HCPCS: 96372; J2357 ==

== ENCOUNTER 2022-08-13 08:48 | Outpatient (REF) | payer MEDICARE, OTHER, SELFPAY ==
[2022-08-13 11:04] LABS: Estimated Average Glucose 154 mg/dL
[2022-08-13 11:18] LABS: Alanine Aminotransferase 20 U/L (0-40); Anion Gap 17 (12-20); Aspartate Amino Transferase 21 U/L (5-37); Blood Urea Nitrogen 15 mg/dL (9-16); Carbon Dioxide 29 mmol/L (22-29); Chloride 103 mmol/L (96-108); Estimated Glomerular Filt Rate > 60; Glucose Fasting 157 mg/dL (60-99); Potassium 5.4 mmol/L (3.3-5.1); Sodium 144 mmol/L (135-145)
== END 2022-08-13 08:49 | disposition home or self-care (01) ==
LOC: HO.10HDL 08:48
PROVIDERS: Visit Provider Family Medicine
DX: I10 Essential (primary) hypertension (principal); E11.9 Type 2 diabetes mellitus without complications; E78.00 Pure hypercholesterolemia, unspecified; Z79.899 Other long term (current) drug therapy
CPT/HCPCS: 36415; 80051; 82550; 82565; 82947; 83036; 84450; 84460; 84520

== ENCOUNTER 2022-08-16 10:31 | Outpatient (REF) | payer MEDICARE, OTHER, SELFPAY | END 2022-08-16 10:32 | disposition home or self-care (01) | LOC: HO.MDS 10:31 | PROVIDERS: Visit Provider Internal Medicine | DX: J45.50 Severe persistent asthma, uncomplicated (principal) | CPT/HCPCS: 96372; J2357 ==

== ENCOUNTER 2022-08-22 10:06 | Outpatient (REF) | payer MEDICARE, OTHER, SELFPAY ==
[2022-08-22 10:39] LABS: MANUAL DIFF FLAG NO
[2022-08-22 10:53] LABS: Basophils Percent Auto 0.4 % (0-2); Eosinophils Absolute Auto 0.2 X10*3/uL (0.0-0.4); Eosinophils Percent Auto 2.1 % (0-4); Hematocrit 45.9 % (42.0-52.0); Hemoglobin 15.2 g/dl (14.0-18.0); Imm Gran Abs Auto 0.04 X10*3/uL (0.00-0.03); Imm Gran Pct Auto 0.5 % (0.0-0.4); Lymphocytes Absolute Auto 3.1 X10*3/uL (1.2-4.9); Lymphocytes Percent Auto 40.8 % (20-40); Mean Corpuscular HGB Conc 33.1 g/dl (31.0-36.0); Mean Corpuscular Hemoglobin 30.9 pg (27.0-33.0); Mean Corpuscular Volume 93.3 fL (80.0-98.0); Mean Platelet Volume 11.2 fL (9.4-12.4); Monocytes Absolute Auto 0.6 X10*3/uL (0.1-1.2); Monocytes Percent Auto 7.7 % (2-11); Neutrophils Absolute Auto 3.7 x10*3/uL (2.0-8.3); Neutrophils Percent Auto 48.5 % (45-73); Platelet Count 285 X10*3/uL (160-400); Red Blood Count 4.92 X10*6/uL (4.60-5.80); White Blood Count 7.7 X10*3/uL (4.8-10.8)
[2022-08-22 11:34] LABS: Free T4 (Free Thyroxine) 1.03 ng/dL (0.71-1.85)
== END 2022-08-22 10:07 | disposition home or self-care (01) ==
LOC: HO.10HDL 10:06
PROVIDERS: Visit Provider Family Medicine
DX: R00.0 Tachycardia, unspecified (principal)
CPT/HCPCS: 36415; 84439; 85025

== ENCOUNTER 2022-10-02 10:03 | Outpatient (REF) | payer MEDICARE, OTHER, SELFPAY ==
[2022-10-02 10:41] LABS: Hematocrit 42.2 % (42.0-52.0)
[2022-10-02 12:06] LABS: PSA,Total (Free>4and<10) 3.42 ng/mL (0.00-4.00)
[2022-10-07 10:13] LABS: Testosterone, Total 722 ng/dL (250-1100)
== END 2022-10-02 10:04 | disposition home or self-care (01) ==
LOC: HO.10HDL 10:03
PROVIDERS: Visit Provider Urology
DX: Z12.5 Encounter for screening for malignant neoplasm of prostate (principal); N13.8 Other obstructive and reflux uropathy; N40.1 Benign prostatic hyperplasia with lower urinary tract symptoms; E29.1 Testicular hypofunction
CPT/HCPCS: 36415; 84153; 84403; 85014

== ENCOUNTER → 2022-10-04 09:26 | Outpatient (BNVA) | payer MEDICARE, OTHER, SELFPAY | PROVIDERS: PCP Family Medicine; Visit Provider Internal Medicine | DX: J44.9 Chronic obstructive pulmonary disease, unspecified (principal); J30.9 Allergic rhinitis, unspecified; Z79.899 Other long term (current) drug therapy | CPT/HCPCS: 99212 ==

== ENCOUNTER → 2022-10-12 09:57 | Outpatient (BNVA) | payer MEDICARE, MEDICAID, SELFPAY | PROVIDERS: PCP Family Medicine; Visit Provider Urology | DX: N40.0 Benign prostatic hyperplasia without lower urinary tract symptoms (principal); E29.1 Testicular hypofunction; N52.9 Male erectile dysfunction, unspecified; Z79.899 Other long term (current) drug therapy | CPT/HCPCS: Q3014 ==

== ENCOUNTER 2022-11-26 09:24 | Outpatient (REF) | payer MEDICARE, MEDICAID, SELFPAY ==
[2022-11-26 11:04] LABS: Estimated Average Glucose 169 mg/dL; Hemoglobin A1c % 7.5 %
[2022-11-26 11:23] LABS: Alanine Aminotransferase 21 U/L (0-40); Anion Gap 13 (12-20); Aspartate Amino Transferase 22 U/L (5-37); Blood Urea Nitrogen 13 mg/dL (9-16); Carbon Dioxide 31 mmol/L (22-29); Chloride 104 mmol/L (96-108); Cholesterol 176 mg/dL; Estimated Glomerular Filt Rate > 60; HDL Cholesterol 45 mg/dL; LDL Cholesterol Calculated 111 mg/dl; Potassium 5.5 mmol/L (3.3-5.1); Sodium 142 mmol/L (135-145); Triglycerides 104 mg/dL
[2022-11-26 14:34] LABS: Creatinine Urine 123.42 mg/dL; Microalbum/Creatinine Ratio Ur 7.2 ug/mg cr
== END 2022-11-26 09:25 | disposition home or self-care (01) ==
LOC: HO.10HDL 09:24
PROVIDERS: Visit Provider Family Medicine
DX: I10 Essential (primary) hypertension (principal); E78.00 Pure hypercholesterolemia, unspecified; E11.9 Type 2 diabetes mellitus without complications; Z79.899 Other long term (current) drug therapy
CPT/HCPCS: 36415; 80051; 80061; 82043; 82550; 82565; 83036; 84450; 84460; 84520

== ENCOUNTER 2023-02-05 09:35 | Outpatient (REF) | payer MEDICARE, MEDICAID, SELFPAY ==
[2023-02-05 11:43] LABS: Anion Gap 13 (12-20); Carbon Dioxide 32 mmol/L (22-29); Chloride 104 mmol/L (96-108); Potassium 5.2 mmol/L (3.3-5.1); Sodium 144 mmol/L (135-145)
== END 2023-02-05 09:36 | disposition home or self-care (01) ==
LOC: HO.10HDL 09:35
PROVIDERS: Visit Provider Family Medicine
DX: E87.5 Hyperkalemia (principal)
CPT/HCPCS: 36415; 80051

== ENCOUNTER 2023-04-04 10:25 | Outpatient (REF) | payer MEDICARE, MEDICAID, SELFPAY ==
[2023-04-09 12:08] LABS: Testosterone, Total 555 ng/dL (250-1100)
== END 2023-04-04 10:26 | disposition home or self-care (01) ==
LOC: HO.10HDL 10:25
PROVIDERS: Visit Provider Urology
DX: E29.1 Testicular hypofunction (principal); Z12.5 Encounter for screening for malignant neoplasm of prostate
CPT/HCPCS: 36415; 84153; 84403; 85027

== ENCOUNTER 2023-04-08 09:29 | Outpatient (AMB) | payer MEDICARE, MEDICAID, SELFPAY ==
[2023-04-08 10:22] VITALS: BP 110/62; PULSE 79; O2SAT 97; BMI 25.8
--- NOTE | 2023-04-08 10:22 | MHC.OFFVIS ---
Intake Vital Signs 04/08/23 10:22 Height 5 ft 6 in Weight 160 lb BMI 25.8 BP 110/62 Blood Pressure Location Lt brachial Position Sitting Pulse 79 Pulse Source Pulse Oximeter Pulse Oximetry (%) 97 Oxygen Delivery Method Room Air Intake Visit Reasons: Asthma, Allergic rhinitis Allergies REAGAN Inhibitors Allergy (Mild, Verified 04/08/23 11:42) Unknown bupropion [From Wellbutrin] Allergy (Mild, Verified 04/08/23 11:42) Unknown simvastatin Adverse Reaction (Unknown, Verified 04/08/23 11:42) myalgia Medication List - Last Reconciled 04/08/23 by Cristóbal Gabriel MD acetaminophen 650 mg PO Q4H PRN Advair Diskus 500-50 mcg/dose (fluticasone propion-salmeterol) 1 inh inhalation BID NS azithromycin 250 mg PO 3XW 30 days blood sugar diagnostic As directed cetirizine 10 mg PO DAILY empagliflozin (Jardiance) 10 mg PO DAILY fluticasone propionate 50 mcg/actuation 1 spray intranasal DAILY hydrochlorothiazide 12.5 mg PO DAILY insulin detemir U-100 units subcut insulin syringe-needle U-100 As directed lancets As directed levalbuterol tartrate 45 mcg/actuation 2 puffs PO Q4-6H PRN losartan 50 mg PO DAILY meclizine 12.5 mg PO BID metformin 1,000 mg PO BID metoprolol succinate ER 25 mg PO DAILY montelukast 10 mg PO DAILY naproxen 500 mg PO DAILY PRN omeprazole 20 mg PO DAILY PRN omeprazole 40 mg PO DAILY rosuvastatin 5 mg PO DAILY syringe with needle (BD Luer-Stefan Syringe) As directed weekly syringe with needle, safety (BD Eclipse Luer-Stefan) Qweekly tadalafil 10 mg PO DAILY 90 days terazosin 10 mg PO BEDTIME 90 days testosterone cypionate (Depo-Testosterone) 100 mg (0.5 mL) IM QWEEK 28 days trazodone 500 mg PO BEDTIME Xolair (omalizumab) 300 mg (2 mL) subcut Q4W 30 days NS Do you need a note to return to daycare/school/sports/work: No HPI Asthma HPI Details 67 YEARS OLD 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 HOWEVER WITH HIS ONGOING REGULAR TREATMENT REGIMEN HE IS REMAINING VERY IS STABLE AND SYMPTOMS. HAVE REMAINED CONTROLLED WHEN HE WALKS AROUND HE STILL GETS SOME WHEEZING, . WHICH HE TOLERATES WELL HE IS ABLE TO WALK AT LEAST FOR 1 HOUR ON A DAILY BASIS. HE HAS HAD NO ACUTE. RESPIRATORY INFECTION OR ACUTE EXACERBATION IN ADDITION TO THE MEDICAL REGIMEN HE CONTINUES TO HAVE BIOLOGIC TREATMENT WITH XOLAIR 300 MG SUB CUT Q 4 WEEKS. [facility] Medical History Allergic rhinitis Asthma BPH w/o urinary obs/LUTS High cholesterol HTN (hypertension) Hypogonadism in male Hypogonadism male IDDM (insulin dependent diabetes mellitus) No known health problems Urge incontinence Social History Patient Tobacco Use Status: Former Tobacco user Advance Directives Date on File: 06/30/20 Review of Systems Const All systems reviewed & are unremarkable except as noted in HPI and below Eyes Reports no additional complaints ENT Reports nasal congestion (Mild intermittent mostly in a.m.) Card Denies chest pain, Reports rapid heart rate (If he uses ProAir), Denies irregular heart rhythm and Denies leg edema Resp Reports as per HPI GI Reports heartburn (Being treated with omeprazole) Reports erectile dysfunction Musc Reports no additional complaints Skin/Breast Reports system reviewed and no additional complaints, except as documented Neuro Reports no additional complaints Psych Reports no additional complaints Physical Exam Vital Signs: Last Vital Signs Pulse 79 04/08/23 10:22 BP 110/62 04/08/23 10:22 Pulse Ox 97 04/08/23 10:22 Oxygen Delivery Method Room Air 04/08/23 10:22 BMI result Body Mass Index 25.8 Const General: healthy appearing, comfortable, no acute distress, alert and awake Orientation/consciousness: patient oriented x3 HEENT Head: Yes normal to inspection General nose exam: No nasal polyps present, No nasal discharge present and Other nasal findings present (Moderate amount of nasal congestion is noted) Face and sinus: Yes sinuses nontender Mouth: oropharynx normal Throat: Yes posterior oropharynx normal Eyes General: appearance normal, both eyes and all related structures Neck Neck: Yes normal visual inspection, Yes no lymphadenopathy, Yes trachea midline and Yes no JVD Thyroid: Thyroid normal Chest Chest palpation & inspection: normal inspection of the chest, normal palpation of entire chest wall and no tenderness Resp Other: Percussion note resonant, breath sounds are distant with prolonged expiratory phase On auscultation he does have a few scattered expiratory wheezes, no crepitations. Cardio Palpation: normal PMI Rate: regular rate Rhythm: regular rhythm Heart sounds: no gallops and no murmurs GI Palpation (GI): Soft to palpation, nontender, No hepatosplenomegaly present and no masses Auscultation: normal bowel sounds Back/Spine/Pelvis Thoracic/Lumbar Spine: thoracic and lumbar spine normal to inspection Skin General skin exam: no rashes or lesions noted Neuro General: patient oriented x3 and no focal motor deficits Cranial nerves: Yes CN's II-XII intact bilaterally Extrem General: Yes normal to inspection, Yes no clubbing, cyanosis or edema and Yes no calf tenderness Psych Appearance: grossly normal and well kempt Speech and movement: Normal speech and movement present Assessment & Plan Assessment & Plan (1) Allergic rhinitis: Comment: CHRONIC SEVERE , FAIRLY WELL CONTROLLED WITH THE CURRENT REGIMEN . TX:CONT . FLONASE -50 2 SPRAYS IN EACH NARE DAILY AT NIGHT ,, MONTELUKAST 10 MG DAILY XOLAIR 300 MG SUB CUT Q 30 DAYS CETRAZINE 10 MG DAILY PRN . Code(s): J30.9 - Allergic rhinitis, unspecified (2) Asthma-COPD overlap syndrome: Comment: CHRONIC ,PERSISTANT , BUT REMAINS STABLE. TX: CONTINUE ADAVIR 500-50 ONE INH BID . XOLAIR 300 MG SUBQ Q 30 DAYS. Levalbuterol HFA 2 puffs Q 4-6 hours p.r.n.. Continue Azithromycin 250 mg 3 x week Code(s): J44.9 - Chronic obstructive pulmonary disease, unspecified (3) Severe persistent allergic asthma: Comment: CHRONIC ALLERGIC BRONCHIAL ASTHMA/COPD. CONTROLLED BETTER SINCE HE IS ON XOLAIR INJECTIONS AND ALL THE ABOVE MEDS . Code(s): J45.50 - Severe persistent asthma, uncomplicated Coding Level of Care Code Est Pt Level 4 (70647) Diagnoses Allergic rhinitis J30.9 Asthma-COPD overlap syndrome J44.9 Severe persistent allergic asthma J45.50
== END 2023-04-08 11:38 | disposition home or self-care (01) ==
LOC: HO.HPS 10:38
PROVIDERS: PCP Family Medicine; Visit Provider Internal Medicine
DX: J30.9 Allergic rhinitis, unspecified (principal); J44.9 Chronic obstructive pulmonary disease, unspecified; J45.50 Severe persistent asthma, uncomplicated
CPT/HCPCS: 99214

== ENCOUNTER → 2023-04-08 10:38 | Outpatient (BNVA) | payer MEDICARE, MEDICAID, SELFPAY | PROVIDERS: PCP Family Medicine; Visit Provider Internal Medicine | DX: J45.50 Severe persistent asthma, uncomplicated (principal); J30.9 Allergic rhinitis, unspecified; J44.9 Chronic obstructive pulmonary disease, unspecified | CPT/HCPCS: 99212 ==

== ENCOUNTER 2023-04-16 09:41 | Outpatient (AMB) | payer MEDICARE, MEDICAID, SELFPAY ==
--- NOTE | 2023-04-16 10:04 | MHC.OFFVIS ---
Intake Intake Visit Reasons: 6M Cbc/Testo/PSA(pending) Intake Note: Patient is present for Follow Up LABS Urology Med: Terazosin, Tadalafil Antibiotic Allergy: None Blood Thinner: None PVR: 13ml Allergies REAGAN Inhibitors Allergy (Mild, Verified 04/08/23 11:42) Unknown bupropion [From Wellbutrin] Allergy (Mild, Verified 04/08/23 11:42) Unknown simvastatin Adverse Reaction (Unknown, Verified 04/08/23 11:42) myalgia Medication List - Last Reconciled 04/16/23 by Darien Gómez MD acetaminophen 650 mg PO Q4H PRN Advair Diskus 500-50 mcg/dose (fluticasone propion-salmeterol) 1 inh inhalation BID NS azithromycin 250 mg PO 3XW 30 days blood sugar diagnostic As directed cetirizine 10 mg PO DAILY empagliflozin (Jardiance) 10 mg PO DAILY fluticasone propionate 50 mcg/actuation 1 spray intranasal DAILY hydrochlorothiazide 12.5 mg PO DAILY insulin detemir U-100 units subcut insulin syringe-needle U-100 As directed lancets As directed levalbuterol tartrate 45 mcg/actuation 2 puffs PO Q4-6H PRN losartan 50 mg PO DAILY meclizine 12.5 mg PO BID metformin 1,000 mg PO BID metoprolol succinate ER 25 mg PO DAILY montelukast 10 mg PO DAILY naproxen 500 mg PO DAILY PRN omeprazole 20 mg PO DAILY PRN omeprazole 40 mg PO DAILY rosuvastatin 5 mg PO DAILY syringe with needle (BD Luer-Stefan Syringe) As directed weekly syringe with needle, safety (BD Eclipse Luer-Stefan) Qweekly tadalafil 10 mg PO DAILY 90 days tadalafil 20 mg PO ONCE PRN 30 days terazosin 10 mg PO BEDTIME 90 days testosterone cypionate (Depo-Testosterone) 80 mg (0.4 mL) IM QWEEK 28 days trazodone 500 mg PO BEDTIME Xolair (omalizumab) 300 mg (2 mL) subcut Q4W 30 days NS HPI HPI Comments History of Present Illness Details Philip is a pleasant male. He is a patient of Dr. Lu. He is seen for the following urologic issues - hypogonadism - postvoid dribbling - BPH - erectile dysfunction Six month review Testosterone 0.4 cc intramuscular weekly Erectile dysfunction Cialis 10 mg daily - at 20 mg on demand BPH terazosin 10 mg T at appropriate level Six month follow-up Hypogonadism Longstanding On testosterone replacement Current therapy 0.5 cc intramuscular weekly Laboratories - 02/17 T 1300, Hct 48 - 04/20 761 4.8 45. 10/22 T 722 P 3.4, 04/21 555 3.5 43 Continue with current dosing, may need to be decreased Erectile dysfunction Longstanding Does respond to Cialis 10 mg daily BPH Postvoid dribbling Current therapy 10 mg terazosin Previously used imipramine p.o. b.i.d. Insulin-dependent diabetic PSA 10/21 3.6 Bilateral inguinal lymphadenopathy Palpable high inguinal region bilateral 04/19 CT scan mildly thickened bladder, right 2 cm inguinal lymph node PFSH Medical History Allergic rhinitis Asthma BPH w/o urinary obs/LUTS High cholesterol HTN (hypertension) Hypogonadism in male Hypogonadism male IDDM (insulin dependent diabetes mellitus) No known health problems Urge incontinence Social History Patient Tobacco Use Status: Former Tobacco user Advance Directives Date on File: 06/30/20 Office Procedures Post Void Residual Post Residual Void Post Void Residual (PVR): 13 [id number]-[id number] Void Residual by ultrasound Results AMB Urinalysis, Automated UA Leukoctes 0 Evelyne/uL Last Edit by ANTONIO King on 04/16/23 10:17 UA Nitrite Negative Last Edit by ANTONIO King on 04/16/23 10:17 UA Urobilinogen 0.2 mg/dL Last Edit by ANTONIO King on 04/16/23 10:17 UA Protein 0 mg/dL Last Edit by ANTONIO King on 04/16/23 10:17 UA pH 7.5 Last Edit by ANTONIO King on 04/16/23 10:17 UA Blood 0 To/uL Last Edit by ANTONIO King on 04/16/23 10:17 UA Specific [place] 1.010 Last Edit by ANTONIO King on 04/16/23 10:17 UA Ketone Negative Last Edit by Abbi Mcgarry, RMA on 04/16/23 10:17 UA Bilirubin 0 mg/dL Last Edit by Abbi Mcgarry, RMA on 04/16/23 10:17 UA Glucose 0 mg/dL Last Edit by Abbi Mcgarry, RMA on 04/16/23 10:17 Results Reviewed Results Reviewed: Laboratory Last Values Urine pH (Auto) 7.5 04/16/23 10:16 Specific [place] (Auto) 1.010 04/16/23 10:16 Urine Protein (Auto) 0 mg/dL 04/16/23 10:16 Glucose (UA)(Auto) 0 mg/dL 04/16/23 10:16 Urine Ketones (Auto) Negative 04/16/23 10:16 Urine Blood (Auto) 0 To/uL 04/16/23 10:16 Urine Nitrite (Auto) Negative 04/16/23 10:16 Urine Bilirubin (Auto) 0 mg/dL 04/16/23 10:16 Urine Urobilinogen (Auto) 0.2 mg/dL 04/16/23 10:16 Leukocyte Esterase (Auto) 0 Evelyne/uL 04/16/23 10:16 Assessment & Plan Assessment & Plan (1) BPH w/o urinary obs/LUTS: Code(s): N40.0 - Benign prostatic hyperplasia without lower urinary tract symptoms (2) Hypogonadism in male: Code(s): E29.1 - Testicular hypofunction Plan Six month follow-up labs Orders: Orders Prostate Specific Antigen 6 Months E29.1 - Testicular hypofunction Testosterone, Total 6 Months E29.1 - Testicular hypofunction Complete Blood Count no Diff 6 Months E29.1 - Testicular hypofunction AMB Urinalysis Automated Today N40.0 - Benign prostatic hyperplasia without lower urinary tract symptoms, Z13.9 - Encounter for screening, unspecified AMB Post Void Residual by ultrasound Today N40.0 - Benign prostatic hyperplasia without lower urinary tract symptoms Medications: New tadalafil On demand medication take 60 minutes before intended activity 20 mg PO ONCE 30 days PRN 30 tabs 0RF sexual activity E11.69 - Type 2 diabetes mellitus with other specified complication, N52.1 - Erectile dysfunction due to diseases classified elsewhere, N52.9 - Male erectile dysfunction, unspecified tadalafil On demand medication take 60 minutes before intended activity 20 mg PO ONCE 30 days PRN 30 tabs 0RF sexual activity E11.69 - Type 2 diabetes mellitus with other specified complication, N52.1 - Erectile dysfunction due to diseases classified elsewhere, N52.9 - Male erectile dysfunction, unspecified tadalafil On demand medication take 60 minutes before intended activity 20 mg PO ONCE 30 days PRN 30 tabs 0RF sexual activity E11.69 - Type 2 diabetes mellitus with other specified complication, N52.1 - Erectile dysfunction due to diseases classified elsewhere, N52.9 - Male erectile dysfunction, unspecified Patient Instructions: Imaging studies, laboratory and physical exam results were discussed and reviewed in detail. No major barriers to patient understanding were identified. An opportunity to ask questions regarding the treatment plan was provided. All questions were answered. The patient expressed understanding and agreement with the above treatment plan. The patient is aware they should contact our office by phone for worsening of their current condition or the appearance of new urologic symptoms. Compliance is encouraged with any medications and followup testing that is ordered. It is a privilege to participate in the urologic care of your patient. If you have any questions or concerns regarding treatment for the above conditions, or other urologic issues, please do not hesitate to contact me. The office telephone contact is [phone]. This note is constructed using voice recognition software. While every effort has been made to ensure accuracy wrestling coach errors may have been included. Yours sincerely, Dr Darien Gómez MD, DAVID [facility] - Urology Providers of Expert, Compassionate Care for the Genitourinary System Coding Level of Care Code Est Pt Level 4 (28012) Diagnoses BPH w/o urinary obs/LUTS N40.0 Hypogonadism in male E29.1 CPT Codes Post Residual Void - PVR CPT Code: 08391-Qjcv Void Residual by ultrasound ([id number])
== END 2023-04-16 10:29 | disposition home or self-care (01) ==
PROVIDERS: Visit Provider Urology
DX: N40.0 Benign prostatic hyperplasia without lower urinary tract symptoms (principal); E29.1 Testicular hypofunction
CPT/HCPCS: 99214

== ENCOUNTER → 2023-04-16 09:41 | Outpatient (BNVA) | payer MEDICARE, MEDICAID, SELFPAY | PROVIDERS: Visit Provider Urology | DX: N40.0 Benign prostatic hyperplasia without lower urinary tract symptoms (principal); E29.1 Testicular hypofunction | CPT/HCPCS: 51798; 99212 ==

== ENCOUNTER 2023-04-22 07:48 | Outpatient (REF) | payer MEDICARE, MEDICAID, SELFPAY ==
[2023-04-22 08:32] LABS: Estimated Average Glucose 151 mg/dL; Hemoglobin A1c % 6.9 %
[2023-04-22 08:58] LABS: Glucose Fasting 150 mg/dL (60-99)
== END 2023-04-22 07:49 | disposition home or self-care (01) ==
LOC: HO.LAB 07:48
PROVIDERS: PCP Family Medicine; Visit Provider Family Medicine
DX: E11.9 Type 2 diabetes mellitus without complications (principal)
CPT/HCPCS: 36415; 82947; 83036

== ENCOUNTER 2023-08-01 09:57 | Outpatient (REF) | payer MEDICARE, MEDICAID, SELFPAY ==
[2023-08-01 11:04] LABS: MANUAL DIFF FLAG NO
[2023-08-01 11:46] LABS: Basophils Percent Auto 0.5 % (0-2); Eosinophils Absolute Auto 0.2 X10*3/uL (0.0-0.4); Eosinophils Percent Auto 1.7 % (0-4); Hematocrit 46.4 % (42.0-52.0); Hemoglobin 15.3 g/dl (14.0-18.0); Imm Gran Abs Auto 0.03 X10*3/uL (0.00-0.03); Imm Gran Pct Auto 0.3 % (0.0-0.4); Lymphocytes Absolute Auto 2.4 X10*3/uL (1.2-4.9); Lymphocytes Percent Auto 27.3 % (20-40); Mean Corpuscular Volume 93.9 fL (80.0-98.0); Mean Platelet Volume 11.4 fL (9.4-12.4); Monocytes Absolute Auto 0.7 X10*3/uL (0.1-1.2); Monocytes Percent Auto 8.1 % (2-11); Neutrophils Absolute Auto 5.5 x10*3/uL (2.0-8.3); Neutrophils Percent Auto 62.1 % (45-73); Platelet Count 282 X10*3/uL (160-400); Red Blood Count 4.94 X10*6/uL (4.60-5.80); White Blood Count 8.8 X10*3/uL (4.8-10.8)
[2023-08-02 09:59] LABS: Immunoglobulin E 324 kU/L (<OR=114)
== END 2023-08-01 09:58 | disposition home or self-care (01) ==
LOC: HO.LAB 09:57
PROVIDERS: PCP Family Medicine; Visit Provider Internal Medicine
DX: J44.9 Chronic obstructive pulmonary disease, unspecified (principal); Z79.899 Other long term (current) drug therapy; J30.9 Allergic rhinitis, unspecified
CPT/HCPCS: 36415; 82785; 85025; 94010; 99212

== ENCOUNTER 2023-08-01 09:57 | Outpatient (AMB) | payer MEDICARE, MEDICAID, SELFPAY ==
--- NOTE | 2023-08-01 10:02 | A.OFFVIS_ITS ---
Intake Vital Signs 08/01/23 10:03 Height 5 ft 6 in Weight 161 lb BMI 26.0 BP 130/68 Blood Pressure Location Lt brachial Position Sitting Pulse 70 Pulse Source Pulse Oximeter Pulse Oximetry (%) 98 Oxygen Delivery Method Room Air Intake Visit Reasons: COPD Intake Note: pt is here for follow up and states his breathing is good, but having issues with nasal congestion, Manager Sports Required: No Allergies REAGAN Inhibitors Allergy (Mild, Verified 08/01/23 10:24) Unknown bupropion [From Wellbutrin] Allergy (Mild, Verified 08/01/23 10:24) Unknown simvastatin Adverse Reaction (Unknown, Verified 08/01/23 10:24) myalgia Medication List - Last Reconciled 08/01/23 by Cristóbal Gabriel MD acetaminophen 650 mg PO Q4H PRN Advair Diskus 500-50 mcg/dose (fluticasone propion-salmeterol) 1 inh inhalation BID NS blood sugar diagnostic As directed empagliflozin (Jardiance) 10 mg PO DAILY fluticasone propion-salmeterol 250-50 mcg/dose (Advair Diskus) 1 inh inhalation BID 30 days hydrochlorothiazide 12.5 mg PO DAILY insulin detemir U-100 units subcut insulin syringe-needle U-100 As directed lancets As directed levalbuterol tartrate 45 mcg/actuation 2 puffs PO Q4-6H PRN losartan 50 mg PO DAILY meclizine 12.5 mg PO BID metformin 1,000 mg PO BID metoprolol succinate ER 25 mg PO DAILY montelukast 10 mg PO DAILY naproxen 500 mg PO DAILY PRN omeprazole 20 mg PO DAILY PRN omeprazole 40 mg PO DAILY rosuvastatin 5 mg PO DAILY syringe with needle (BD Luer-Stefan Syringe) As directed weekly syringe with needle, safety (BD Eclipse Luer-Stefan) Qweekly tadalafil 20 mg PO ONCE PRN 30 days tadalafil 10 mg PO DAILY 90 days terazosin 10 mg PO BEDTIME 90 days testosterone cypionate (Depo-Testosterone) 80 mg (0.4 mL) IM QWEEK 28 days trazodone 500 mg PO BEDTIME Xolair (omalizumab) 300 mg (2 mL) subcut Q4W 30 days NS Do you need a note to return to daycare/school/sports/work: No HPI COPD HPI Details This 67 years old gentleman is here for his routine follow-up. Complains of increased nasal congestion and cough. Breathing is okay. He hardly needs to use levalbuterol. Still using Advair 500-51 inhalation b.i.d. regularly. He is self injecting Xolair 300 mg Q 4 weeks. He wants to have the Xolair injection he over here at our office , on a monthly basis, we are going to look into that. He states that the pharmacy sending him on a monthly basis, is somewhat erratically. Because sometimes it comes after 3 weeks and sometimes after 5 weeks. He claims that if his injection is delayed by a week he starts having increased nasal congestion. He claims that he stopped using azithromycin because he was told that it may cau se some side effects to his he. He has only 1 functioning eye. [facility] Medical History Allergic rhinitis Hypogonadism in male Urge incontinence Hypogonadism male BPH w/o urinary obs/LUTS No known health problems Asthma High cholesterol IDDM (insulin dependent diabetes mellitus) HTN (hypertension) Social History Patient Tobacco Use Status: Former Tobacco user Advance Directives Date on File: 06/30/20 Review of Systems Const All systems reviewed & are unremarkable except as noted in HPI and below Eyes Reports no additional complaints ENT Reports nasal congestion (Mild intermittent mostly in a.m.) Card Denies chest pain, Reports rapid heart rate (If he uses ProAir), Denies irregular heart rhythm and Denies leg edema Resp Reports as per HPI GI Reports heartburn (Being treated with omeprazole) Reports erectile dysfunction Musc Reports no additional complaints Skin/Breast Reports system reviewed and no additional complaints, except as documented Neuro Reports no additional complaints Psych Reports no additional complaints Physical Exam Vital Signs: Last Vital Signs Pulse 70 08/01/23 10:03 BP 130/68 08/01/23 10:03 Pulse Ox 98 08/01/23 10:03 Oxygen Delivery Method Room Air 08/01/23 10:03 BMI result Body Mass Index 26.0 Const General: healthy appearing, comfortable, no acute distress, alert and awake Orientation/consciousness: patient oriented x3 HEENT Head: Yes normal to inspection General nose exam: No nasal polyps present, No nasal discharge present and Other nasal findings present (Moderate amount of nasal congestion is noted) Face and sinus: Yes sinuses nontender Mouth: oropharynx normal Throat: Yes posterior oropharynx normal Eyes General: appearance normal, both eyes and all related structures Neck Neck: Yes normal visual inspection, Yes no lymphadenopathy, Yes trachea midline and Yes no JVD Thyroid: Thyroid normal Chest Chest palpation & inspection: normal inspection of the chest, normal palpation of entire chest wall and no tenderness Resp Other: Percussion note resonant, breath sounds are distant with prolonged expiratory phase On auscultation he does have a few scattered expiratory wheezes, no crepitations. Cardio Palpation: normal PMI Rate: regular rate Rhythm: regular rhythm Heart sounds: no gallops and no murmurs GI Palpation (GI): Soft to palpation, nontender, No hepatosplenomegaly present and no masses Auscultation: normal bowel sounds Back/Spine/Pelvis Thoracic/Lumbar Spine: thoracic and lumbar spine normal to inspection Skin General skin exam: no rashes or lesions noted Neuro General: patient oriented x3 and no focal motor deficits Cranial nerves: Yes CN's II-XII intact bilaterally Extrem General: Yes normal to inspection, Yes no clubbing, cyanosis or edema and Yes no calf tenderness Psych Appearance: grossly normal and well kempt Speech and movement: Normal speech and movement present Office Procedures Spirometry Testing Spirometry Comments: pt performed procedure with excellent effort 48033- Spirometry Results Reviewed Results Reviewed: SPIROMETRY DONE IN THE OFFICE FVC= 76 % FEV1= 63 % FEV1/FVC = 63 FEF 25-75 = 34 % C/W MILD RESTRICTIVE PULMONARY DISORDER AND MILD TO MODERATE OBSTRUCTIVE DISORDER, SLIGHTLY WORSE THAN RESULTS IN 2020. Assessment & Plan Assessment & Plan (1) Asthma-COPD overlap syndrome: Comment: CHRONIC ,PERSISTANT , BUT REMAINS STABLE. TX: CONTINUE ADAVIR , DOSE DECREASED TO 250-50 ONE INH BID . STRESSED THAT HE SHOULD RINSE THE MOUTH THOROUGHLY AFTER THE INHILATION . XOLAIR 300 MG SUBQ Q 30 DAYS. Levalbuterol HFA 2 puffs Q 4-6 hours p.r.n.. Code(s): J44.9 - Chronic obstructive pulmonary disease, unspecified (2) Allergic rhinitis: Comment: CHRONIC SEVERE , FAIRLY WELL CONTROLLED WITH THE CURRENT REGIMEN . TX:CONT . FLONASE -50 2 SPRAYS IN EACH NARE DAILY AT NIGHT ,, MONTELUKAST 10 MG DAILY XOLAIR 300 MG SUB CUT Q 4 WEEKS . CETRAZINE 10 MG DAILY PRN . CHECK CBC WITH DIFF AND IGE LEVEL Code(s): J30.9 - Allergic rhinitis, unspecified Orders: Orders Complete Blood Count Auto Diff 08/01/23 J30.9 - Allergic rhinitis, unspecified, J44.9 - Chronic obstructive pulmonary disease, unspecified Immunoglobulin E 08/01/23 J30.9 - Allergic rhinitis, unspecified, J44.9 - Chronic obstructive pulmonary disease, unspecified Medications: New fluticasone propion-salmeterol 250-50 mcg/dose (Advair Diskus) 1 inh inhalation BID 60 ea 5RF ASTHMA/COPD 30 days Coding Level of Care Code Est Pt Level 4 (25455) Diagnoses Asthma-COPD overlap syndrome J44.9 Allergic rhinitis J30.9 CPT Codes Spirometry - CPT: 98841- Spirometry ([id number])
[2023-08-01 10:03] VITALS: BP 130/68; PULSE 70; O2SAT 98; BMI 26.0
== END 2023-08-01 10:53 | disposition home or self-care (01) ==
PROVIDERS: PCP Family Medicine; Visit Provider Internal Medicine
DX: J44.9 Chronic obstructive pulmonary disease, unspecified (principal)
CPT/HCPCS: 94010; 99214

== ENCOUNTER 2023-08-21 10:22 | Outpatient (REF) | payer MEDICARE, MEDICAID, SELFPAY | END 2023-08-21 10:23 | disposition home or self-care (01) | LOC: HO.MDS 10:22 | PROVIDERS: Visit Provider Internal Medicine | DX: J45.50 Severe persistent asthma, uncomplicated (principal) | CPT/HCPCS: 96372 ==

== ENCOUNTER 2023-09-18 09:57 | Outpatient (REF) | payer MEDICARE, MEDICAID, SELFPAY | END 2023-09-18 09:58 | disposition home or self-care (01) | LOC: HO.MDS 09:57 | PROVIDERS: Visit Provider Internal Medicine | DX: J45.50 Severe persistent asthma, uncomplicated (principal) | CPT/HCPCS: 96372 ==

== ENCOUNTER 2023-09-25 08:06 | Outpatient (REF) | payer MEDICARE, MEDICAID, SELFPAY ==
[2023-09-25 08:50] LABS: Estimated Average Glucose 174 mg/dL; Hemoglobin A1c % 7.7 % (<6.0)
[2023-09-25 09:10] LABS: Alanine Aminotransferase 18 U/L (0-40); Anion Gap 10 (12-20); Aspartate Amino Transferase 20 U/L (5-37); Blood Urea Nitrogen 12 mg/dL (9-16); Carbon Dioxide 29 mmol/L (22-29); Chloride 106 mmol/L (96-108); Cholesterol 151 mg/dL (<200); Estimated Glomerular Filt Rate > 60; HDL Cholesterol 38 mg/dL (>40); LDL Cholesterol Calculated 90 mg/dL (<100); Sodium 141 mmol/L (135-145); Triglycerides 116 mg/dL (<150)
[2023-09-25 09:58] LABS: Creatinine Urine 77.15 mg/dL
== END 2023-09-25 08:07 | disposition home or self-care (01) ==
LOC: HO.LAB 08:06
PROVIDERS: PCP Family Medicine; Visit Provider Family Medicine
DX: I10 Essential (primary) hypertension (principal); E78.00 Pure hypercholesterolemia, unspecified; E11.9 Type 2 diabetes mellitus without complications; Z79.899 Other long term (current) drug therapy
CPT/HCPCS: 36415; 80051; 80061; 82043; 82550; 82565; 82570; 83036; 84450; 84460; 84520

== ENCOUNTER 2023-10-15 09:46 | Outpatient (REF) | payer MEDICARE, MEDICAID, SELFPAY ==
[2023-10-15 10:29] LABS: Hematocrit 44.3 % (42.0-52.0); Hemoglobin 14.6 g/dl (14.0-18.0); Mean Corpuscular Hemoglobin 31.1 pg (27.0-33.0); Mean Corpuscular Volume 94.5 fL (80.0-98.0); Mean Platelet Volume 11.4 fL (9.4-12.4); Platelet Count 261 X10*3/uL (160-400); Red Blood Count 4.69 X10*6/uL (4.60-5.80); Red Cell Distribution Width 13.1 % (11.0-16.0); White Blood Count 6.8 X10*3/uL (4.8-10.8)
[2023-10-15 11:22] LABS: Prostate Specific Antigen 3.79 ng/mL (<0.05-4.0)
[2023-10-19 16:03] LABS: Testosterone, Total 459 ng/dL (250-1100)
== END 2023-10-15 09:47 | disposition home or self-care (01) ==
LOC: HO.LAB 09:46
PROVIDERS: PCP Family Medicine; Visit Provider Urology
DX: Z12.5 Encounter for screening for malignant neoplasm of prostate (principal); E29.1 Testicular hypofunction
CPT/HCPCS: 36415; 84153; 84403; 85027

== ENCOUNTER 2023-10-16 09:53 | Outpatient (REF) | payer MEDICARE, MEDICAID, SELFPAY | END 2023-10-16 09:54 | disposition home or self-care (01) | LOC: HO.MDS 09:53 | PROVIDERS: Visit Provider Internal Medicine | DX: J45.50 Severe persistent asthma, uncomplicated (principal) | CPT/HCPCS: 96372 ==

== ENCOUNTER 2023-10-24 09:29 | Outpatient (AMB) | payer MEDICARE, MEDICAID, SELFPAY ==
[2023-10-24 09:37] VITALS: BP 130/52; PULSE 65; O2SAT 97; BMI 26.5
--- NOTE | 2023-10-24 09:37 | A.OFFVIS_ITS ---
Intake Vital Signs 10/24/23 09:37 Height 5 ft 6 in Weight 164 lb 3.91 oz BMI 26.5 BP 130/52 L Blood Pressure Location Lt brachial Position Sitting Pulse 65 Pulse Source Pulse Oximeter Pulse Oximetry (%) 97 Oxygen Delivery Method Room Air Intake Visit Reasons: COPD Intake Note: pt is here for follow up and states he is doing good. 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 Allergies REAGAN Inhibitors Allergy (Mild, Verified 10/24/23 09:40) Unknown bupropion [From Wellbutrin] Allergy (Mild, Verified 10/24/23 09:40) Unknown simvastatin Adverse Reaction (Unknown, Verified 10/24/23 09:40) myalgia Medication List - Last Reconciled 10/24/23 by Cristóbal Gabriel MD acetaminophen 650 mg PO Q4H PRN blood sugar diagnostic As directed clotrimazole 1% appl topical DAILY fluticasone furoate-vilanterol 200-25 mcg/dose (Breo Ellipta) 1 inh inhalation DAILY 30 days fluticasone propionate 50 mcg/actuation 1 spray intranasal DAILY PRN hydrochlorothiazide 25 mg PO DAILY hydrocortisone 1% topical DAILY insulin detemir U-100 units subcut insulin syringe-needle U-100 As directed lancets As directed levalbuterol tartrate 45 mcg/actuation 2 puffs PO Q4-6H PRN losartan 100 mg PO DAILY metformin 1,000 mg PO BID metoprolol succinate ER 50 mg PO DAILY montelukast 10 mg PO DAILY naproxen 500 mg PO DAILY PRN omeprazole 80 mg PO DAILY rosuvastatin 5 mg PO DAILY syringe with needle (BD Luer-Stefan Syringe) As directed weekly syringe with needle, safety (BD Eclipse Luer-Stefan) Qweekly tadalafil 20 mg PO ONCE PRN 30 days tadalafil 10 mg PO DAILY 90 days terazosin 10 mg PO BEDTIME 90 days testosterone cypionate (Depo-Testosterone) 80 mg (0.4 mL) IM QWEEK 28 days trazodone 500 mg PO BEDTIME triamcinolone acetonide 0.025% topical BID Xolair (omalizumab) 300 mg (2 mL) subcut Q4W 30 days NS Do you need a note to return to daycare/school/sports/work: No HPI COPD HPI Details Philip is 68 years old gentleman being followed for allergic rhinitis/allergic bronchial asthma. He is here for his regular follow-up. He feels much better since he is on Xolair injections, and Breo-200 . He has occasional cough and wheezing and ends up using levalbuterol only about once a day. He is still taking montelukast 10 mg daily. He is very happy with his current medical regimen. He has had no acute respiratory infection in the last few months. [facility] Medical History Allergic rhinitis Hypogonadism in male Urge incontinence Hypogonadism male BPH w/o urinary obs/LUTS No known health problems Asthma High cholesterol IDDM (insulin dependent diabetes mellitus) HTN (hypertension) Social History Patient Tobacco Use Status: Former Tobacco user Advance Directives Date on File: 06/30/20 Review of Systems Const All systems reviewed & are unremarkable except as noted in HPI and below Eyes Reports no additional complaints ENT Reports nasal congestion (Mild intermittent mostly in a.m.) Card Denies chest pain, Reports rapid heart rate (If he uses ProAir), Denies irregular heart rhythm and Denies leg edema Resp Reports as per HPI GI Reports heartburn (Being treated with omeprazole) Reports erectile dysfunction Musc Reports no additional complaints Skin/Breast Reports system reviewed and no additional complaints, except as documented Neuro Reports no additional complaints Psych Reports no additional complaints Physical Exam Const General: healthy appearing, comfortable, no acute distress, alert and awake Orientation/consciousness: patient oriented x3 HEENT Head: Yes normal to inspection General nose exam: No nasal polyps present, No nasal discharge present and Other nasal findings present (Moderate amount of nasal congestion is noted) Face and sinus: Yes sinuses nontender Mouth: oropharynx normal Throat: Yes posterior oropharynx normal Eyes General: appearance normal, both eyes and all related structures Neck Neck: Yes normal visual inspection, Yes no lymphadenopathy, Yes trachea midline and Yes no JVD Thyroid: Thyroid normal Chest Chest palpation & inspection: normal inspection of the chest, normal palpation of entire chest wall and no tenderness Resp Other: Percussion note resonant, breath sounds are distant with prolonged expiratory phase On auscultation he does have a few scattered expiratory wheezes especially in upper areas of the chest. no crepitations. Cardio Palpation: normal PMI Rate: regular rate Rhythm: regular rhythm Heart sounds: no gallops and no murmurs GI Palpation (GI): Soft to palpation, nontender, No hepatosplenomegaly present and no masses Auscultation: normal bowel sounds Back/Spine/Pelvis Thoracic/Lumbar Spine: thoracic and lumbar spine normal to inspection Skin General skin exam: no rashes or lesions noted Neuro General: patient oriented x3 and no focal motor deficits Cranial nerves: Yes CN's II-XII intact bilaterally Extrem General: Yes normal to inspection, Yes no clubbing, cyanosis or edema and Yes no calf tenderness Psych Appearance: grossly normal and well kempt Speech and movement: Normal speech and movement present Results Reviewed Results Reviewed: 08/[address] 1.7 NORMAL IGE 324 STILL HIGH Assessment & Plan Assessment & Plan (1) Asthma-COPD overlap syndrome: Comment: CHRONIC ,PERSISTANT , BUT TABLE AND WELL CONTROLLED . Code(s): J44.9 - Chronic obstructive pulmonary disease, unspecified Plan: TX: CONTINUE BREO 200-25 ONCE ADAY STRESSED THAT HE SHOULD RINSE THE MOUTH THOROUGHLY AFTER THE INHILATION . XOLAIR 300 MG SUBQ Q 30 DAYS. Levalbuterol HFA 2 puffs Q 4-6 hours p.r.n.. Avoid excessive use (2) Allergic rhinitis: Comment: CHRONIC SEVERE , FAIRLY WELL CONTROLLED WITH THE CURRENT REGIMEN . Code(s): J30.9 - Allergic rhinitis, unspecified Plan: TX:CONT . FLONASE -50 2 SPRAYS IN EACH NARE DAILY AT NIGHT ,, MONTELUKAST 10 MG DAILY XOLAIR 300 MG SUB CUT Q 4 WEEKS . CETRAZINE 10 MG DAILY PRN . Coding Level of Care Code Est Pt Level 3 (86688) Diagnoses Asthma-COPD overlap syndrome J44.9 Allergic rhinitis J30.9
== END 2023-10-24 09:53 | disposition home or self-care (01) ==
PROVIDERS: PCP Family Medicine; Visit Provider Internal Medicine
DX: J44.9 Chronic obstructive pulmonary disease, unspecified (principal); J30.9 Allergic rhinitis, unspecified
CPT/HCPCS: 99213

== ENCOUNTER → 2023-10-24 09:29 | Outpatient (BNVA) | payer MEDICARE, MEDICAID, SELFPAY | PROVIDERS: PCP Family Medicine; Visit Provider Internal Medicine | DX: J44.9 Chronic obstructive pulmonary disease, unspecified (principal); J30.9 Allergic rhinitis, unspecified | CPT/HCPCS: 99212 ==

== ENCOUNTER 2023-10-25 13:50 | Outpatient (AMB) | payer MEDICARE, MEDICAID, SELFPAY ==
--- NOTE | 2023-10-25 13:50 | A.OFFVIS_ITS ---
Intake Intake Visit Reasons: 6M PSA/Testo/CBC(labs Intake Note: Patient is Present for Telephone Follow Up labs Urology Med: Tadalafil, Testosterone, Terazosin Antibiotic Allergy: None Blood Thinner: None Allergies REAGAN Inhibitors Allergy (Mild, Verified 10/24/23 09:40) Unknown bupropion [From Wellbutrin] Allergy (Mild, Verified 10/24/23 09:40) Unknown simvastatin Adverse Reaction (Unknown, Verified 10/24/23 09:40) myalgia HPI HPI Comments History of Present Illness Details Philip is a pleasant male. He is a patient of Dr. Lu. He is seen for the following urologic issues - hypogonadism - postvoid dribbling - BPH - erectile dysfunction Telemedicine Evaluation 15 min Consultation [facility] Video attempted Six month review Testosterone 0.4 cc intramuscular weekly Erectile dysfunction Cialis 10 mg daily - at 20 mg on demand BPH terazosin 10 mg T at appropriate level Six month follow-up Hypogonadism Longstanding On testosterone replacement Current therapy 0.5 cc intramuscular weekly Laboratories - 02/17 T 1300, Hct 48 - 04/20 761 4.8 45. 10/22 T 722 P 3.4, 03/31 3 555 3.5 43, 10/23 460 2.8 44 HBA1c 7.7 Continue with current dosing, may need to be decreased Erectile dysfunction Longstanding Does respond to Cialis 10 mg daily BPH Postvoid dribbling Current therapy 10 mg terazosin Previously used imipramine p.o. b.i.d. Insulin-dependent diabetic PSA 10/21 3.6 Bilateral inguinal lymphadenopathy Palpable high inguinal region bilateral 04/19 CT scan mildly thickened bladder, r ight 2 cm inguinal lymph node PFSH Medical History Allergic rhinitis Hypogonadism in male Urge incontinence Hypogonadism male BPH w/o urinary obs/LUTS No known health problems Asthma High cholesterol IDDM (insulin dependent diabetes mellitus) HTN (hypertension) Social History Patient Tobacco Use Status: Former Tobacco user Advance Directives Date on File: 06/30/20 Review of Systems Const All systems reviewed & are unremarkable except as noted in HPI and below Reports no additional complaints Resp Reports no additional complaints GI Reports no additional complaints Reports as per HPI Musc Reports no additional complaints Physical Exam Telemedicine evaluation Appropriate responses Regular breathing rate and rhythm HEENT Head: Yes normal to inspection Ears: hearing grossly normal bilaterally Eyes General: appearance normal, both eyes and all related structures Neck Neck: Yes normal visual inspection Chest Chest palpation & inspection: normal inspection of the chest Resp Effort & Inspection: normal respiratory effort and able to speak in complete sentences Assessment & Plan Assessment & Plan (1) Hypogonadism in male: Code(s): E29.1 - Testicular hypofunction (2) BPH w/o urinary obs/LUTS: Code(s): N40.0 - Benign prostatic hyperplasia without lower urinary tract symptoms (3) Erectile dysfunction: Code(s): N52.9 - Male erectile dysfunction, unspecified Plan Six-month follow-up lab work office Medications: Changed From syringe with needle, safety (BD Eclipse Luer-Stefan) Qweekly 4 ea 6RF To syringe with needle, safety Qweekly 4 ea 6RF Refilled testosterone cypionate (Depo-Testosterone) 80 mg (0.4 mL) IM QWEEK 28 days 2 mL 5RF E29.1 - Testicular hypofunction tadalafil 10 mg PO DAILY 90 days 90 tabs 1RF sexual activity N52.01 - Erectile dysfunction due to arterial insufficiency terazosin 10 mg PO BEDTIME 90 days 90 caps 1RF N13.8 - Other obstructive and reflux uropathy, N40.0 - Benign prostatic hyperplasia without lower urinary tract symptoms, N40.1 - Benign prostatic hyperplasia with lower urinary tract symptoms Patient Instructions: Imaging studies, laboratory and physical exam results were discussed and reviewed in detail. No major barriers to patient understanding were identified. An opportunity to ask questions regarding the treatment plan was provided. All questions were answered. The patient expressed understanding and agreement with the above treatment plan. The patient is aware they should contact our office by phone for worsening of their current condition or the appearance of new urologic symptoms. Compliance is encouraged with any medications and followup testing that is ordered. It is a privilege to participate in the urologic care of your patient. If you have any questions or concerns regarding treatment for the above conditions, or other urologic issues, please do not hesitate to contact me. The office telephone contact is [phone]. This note is constructed using voice recognition software. While every effort has been made to ensure accuracy gas stove servicer helper errors may have been included. Yours sincerely, Dr Darien Gómez MD, [facility] - Urology Providers of Expert, Compassionate Care for the Genitourinary System Telehealth Telehealth Location of provider rendering services: practice address Location of patient: address on file Patient Identification confirmed using: Name, : Yes Telehealth method: video Patient verbally consented to treatment: Yes Patient verbally consented to billing insurance company: Yes Patient informed of any privacy concerns related to visit: Yes Coding Level of Care Code Tele Est Pt Level 4 (94490) Diagnoses Hypogonadism in male E29.1 BPH w/o urinary obs/LUTS N40.0 Erectile dysfunction N52.9
== END 2023-10-25 15:03 | disposition home or self-care (01) ==
LOC: HO.HUSH 13:50
PROVIDERS: PCP Family Medicine; Visit Provider Urology
DX: E29.1 Testicular hypofunction (principal); N40.0 Benign prostatic hyperplasia without lower urinary tract symptoms; N52.9 Male erectile dysfunction, unspecified
CPT/HCPCS: 99213

== ENCOUNTER → 2023-10-25 13:50 | Outpatient (BNVA) | payer MEDICARE, MEDICAID, SELFPAY | PROVIDERS: PCP Family Medicine; Visit Provider Urology ==

== ENCOUNTER 2023-11-13 10:32 | Outpatient (REF) | payer MEDICARE, MEDICAID, SELFPAY | END 2023-11-13 10:33 | disposition home or self-care (01) | LOC: HO.MDS 10:32 | PROVIDERS: Visit Provider Internal Medicine | DX: J45.50 Severe persistent asthma, uncomplicated (principal) | CPT/HCPCS: 96372 ==

== ENCOUNTER 2023-12-11 09:56 | Outpatient (REF) | payer OTHER, SELFPAY ==
[2023-12-11 10:17] VITALS: BP 137/55; PULSE 80; RESP 18; TEMP 36.8; O2SAT 95
[2023-12-11] MEDS: Omalizumab 150 MG/ML SYRINGE 300 MG SUBCUT (10:24)
== END 2023-12-11 09:57 | disposition home or self-care (01) ==
LOC: HO.MDS 09:56
PROVIDERS: Visit Provider Internal Medicine
DX: J45.50 Severe persistent asthma, uncomplicated (principal)
CPT/HCPCS: 96372

== ENCOUNTER 2024-02-08 07:48 | Outpatient (REF) | payer OTHER, SELFPAY ==
[2024-02-08 09:22] LABS: Estimated Average Glucose 154 mg/dL
[2024-02-08 09:34] LABS: Alanine Aminotransferase 15 U/L (0-40); Anion Gap 14 (12-20); Aspartate Amino Transferase 17 U/L (5-37); Blood Urea Nitrogen 11 mg/dL (9-16); Carbon Dioxide 28 mmol/L (22-29); Chloride 106 mmol/L (96-108); Estimated Glomerular Filt Rate > 60; Glucose Fasting 121 mg/dL (60-99); Potassium 4.4 mmol/L (3.3-5.1); Sodium 144 mmol/L (135-145)
[2024-02-08 09:52] LABS: Creatinine Urine 89.74 mg/dL; Microalbumin Urine < 5.0 mg/L
[2024-02-08 09:56] LABS: PSA,Total (Free>4and<10) 4.09 ng/mL (0.00-4.00)
[2024-02-12 12:53] LABS: Free Prostate Spec Ag 0.5 ng/mL; Percent Free Prostate Spec Ag 14 % (calc) (>25); Prostate Specific Ag Total 3.7 ng/mL (< OR = 4.0)
[2024-02-12 13:13] LABS: Testosterone, Total 932 ng/dL (250-1100)
== END 2024-02-08 07:49 | disposition home or self-care (01) ==
LOC: HO.LAB 07:48
PROVIDERS: Urology; PCP Family Medicine; Visit Provider Family Medicine
DX: Z12.5 Encounter for screening for malignant neoplasm of prostate (principal); N40.0 Benign prostatic hyperplasia without lower urinary tract symptoms; I10 Essential (primary) hypertension; E11.9 Type 2 diabetes mellitus without complications; E78.00 Pure hypercholesterolemia, unspecified; Z79.899 Other long term (current) drug therapy
CPT/HCPCS: 36415; 80051; 82043; 82550; 82565; 82570; 82947; 83036; 84153; 84154; 84403; 84450; 84460; 84520

== ENCOUNTER 2024-02-19 09:33 | Outpatient (AMB) | payer OTHER, SELFPAY ==
[2024-02-19 09:39] VITALS: BP 122/68; PULSE 82; O2SAT 97; BMI 25.5
--- NOTE | 2024-02-19 09:39 | MHC.OFFVIS ---
Vital Signs 02/19/24 09:39 Height 5 ft 6 in Weight 158 lb BMI 25.5 BP 122/68 Blood Pressure Location Lt brachial Position Sitting Pulse 82 Pulse Source Pulse Oximeter Pulse Oximetry (%) 97 Oxygen Delivery Method Room Air Intake Visit Reasons: COPD Intake Note: pt is here for follow up and states he is using albuterol tid because he has been out of advair and thought that MD had stopped medcation due to no refill being sent. 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 Required: No Allergies REAGAN Inhibitors Allergy (Mild, Verified 02/19/24 10:00) Unknown bupropion [From Wellbutrin] Allergy (Mild, Verified 02/19/24 10:00) Unknown simvastatin Adverse Reaction (Unknown, Verified 02/19/24 10:00) myalgia Medication List - Last Reconciled 02/19/24 by Cristóbal Gabriel MD acetaminophen 650 mg PO Q4H PRN albuterol sulfate 90 mcg/actuation 1 puff inhalation QID PRN 30 days blood sugar diagnostic As directed clotrimazole 1% appl topical DAILY fluticasone propion-salmeterol 250-50 mcg/dose (Advair Diskus) 1 inh inhalation BID fluticasone propionate 50 mcg/actuation 1 spray intranasal DAILY PRN hydrochlorothiazide 25 mg PO DAILY hydrocortisone 1% topical DAILY insulin detemir U-100 units subcut insulin syringe-needle U-100 As directed lancets As directed levalbuterol tartrate 45 mcg/actuation 2 puffs PO Q4-6H PRN losartan 100 mg PO DAILY metformin 1,000 mg PO BID metoprolol succinate ER 50 mg PO DAILY montelukast 10 mg PO DAILY naproxen 500 mg PO DAILY PRN omalizumab 300 mg subcut Q4W omeprazole 80 mg PO DAILY rosuvastatin 5 mg PO DAILY syringe with needle (BD Luer-Stefan Syringe) As directed weekly syringe with needle, safety Qweekly tadalafil 20 mg PO ONCE PRN 30 days tadalafil 10 mg PO DAILY 90 days terazosin 10 mg PO BEDTIME 90 days testosterone cypionate (Depo-Testosterone) 80 mg (0.4 mL) IM QWEEK 28 days trazodone 500 mg PO BEDTIME triamcinolone acetonide 0.025% topical BID Do you need a note to return to daycare/school/sports/work: No HPI HPI COPD: Details: THIS 68 YEARS OLD GENTLEMAN IS HERE FOR HIS ROUTINE FOLLOW-UP OFF AFTER 4 MONTHS. ON HIS LAST VISIT HE WAS PRESCRIBED BREO 200-25 1 INHALATION DAILY. BUT SUBSEQUENTLY IT WAS CHANGED TO ADVAIR 250-51 INHALATION B.I.D., PER INSURANCE COVERAGE. HE HAS BEEN DOING OKAY BUT HE IS OUT OF ADVAIR FOR THE LAST FEW WEEKS AND NOW USING ALBUTEROL 2 TO 3 TIMES A DAY. HE HAS USUAL MILD NASAL CONGESTION, AND HAS TO USE FLONASE P.R.N.. BREATHING IS HOLDING GOOD EXCEPT FOR MILD INTERMITTENT COUGH. [facility] Medical History Allergic rhinitis Hypogonadism in male Urge incontinence Hypogonadism male BPH w/o urinary obs/LUTS No known health problems Asthma High cholesterol IDDM (insulin dependent diabetes mellitus) HTN (hypertension) Social History Patient Tobacco Use Status: Former Tobacco user Advance Directives Date on File: 06/30/20 Review of Systems Const All systems reviewed & are unremarkable except as noted in HPI and below Eyes Reports no additional complaints ENT Reports nasal congestion (Mild intermittent mostly in a.m.) Card Denies chest pain, Reports rapid heart rate (If he uses ProAir), Denies irregular heart rhythm and Denies leg edema Resp Reports as per HPI GI Reports heartburn (Being treated with omeprazole) Reports erectile dysfunction Musc Reports no additional complaints Skin/Breast Reports system reviewed and no additional complaints, except as documented Neuro Reports no additional complaints Psych Reports no additional complaints Physical Exam Vital Signs: Last Vital Signs Pulse 82 02/19/24 09:39 BP 122/68 02/19/24 09:39 Pulse Ox 97 02/19/24 09:39 Oxygen Delivery Method Room Air 02/19/24 09:39 BMI result Body Mass Index 25.5 Const General: healthy appearing, comfortable, no acute distress, alert and awake Orientation/consciousness: patient oriented x3 HEENT Head: Yes normal to inspection General nose exam: No nasal polyps present, No nasal discharge present and Other nasal findings present (Moderate amount of nasal congestion is noted) Face and sinus: Yes sinuses nontender Mouth: oropharynx normal Throat: Yes posterior oropharynx normal Eyes General: appearance normal, both eyes and all related structures Neck Neck: Yes normal visual inspection, Yes no lymphadenopathy, Yes trachea midline and Yes no JVD Thyroid: Thyroid normal Chest Chest palpation & inspection: normal inspection of the chest, normal palpation of entire chest wall and no tenderness Resp Other: Percussion note resonant, breath sounds are distant with prolonged expiratory phase On auscultation lungs are clear , except a few scattered expiratory wheezes especially in upper areas of the chest, anteriorly . Cardio Palpation: normal PMI Rate: regular rate Rhythm: regular rhythm Heart sounds: no gallops and no murmurs GI Palpation (GI): Soft to palpation, nontender, No hepatosplenomegaly present and no masses Auscultation: normal bowel sounds Back/Spine/Pelvis Thoracic/Lumbar Spine: thoracic and lumbar spine normal to inspection Skin General skin exam: no rashes or lesions noted Neuro General: patient oriented x3 and no focal motor deficits Cranial nerves: Yes CN's II-XII intact bilaterally Extrem General: Yes normal to inspection, Yes no clubbing, cyanosis or edema and Yes no calf tenderness Psych Appearance: grossly normal and well kempt Speech and movement: Normal speech and movement present Assessment & Plan Assessment & Plan (1) Asthma-COPD overlap syndrome: Comment: THIS PATIENT WITH HISTORY OF ALLERGIC RHINITIS AND BRONCHIAL ASTHMA FOR MANY YEARS, HAS PROGRESSED INTO ASTHMA/COPD OVERLAP SYNDROME. WITH THE CURRENT MEDICAL REGIMEN IT IS REMAINING VERY STABLE AND CONTROLLED. NOW FOR THE PAST FEW WEEKS HE WAS OUT OF HIS MAINTENANCE MED. SO STARTED HAVING INCREASED WHEEZES. Code(s): J44.9 - Chronic obstructive pulmonary disease, unspecified Category: Medical Plan: START ADVAIR 250-51 INHALATION B.I.D. ALBUTEROL HFA 2 PUFFS Q 4-6 HOURS P.R.N. (2) Allergic rhinitis: Comment: CHRONIC SEVERE , FAIRLY WELL CONTROLLED WITH THE CURRENT REGIMEN . Code(s): J30.9 - Allergic rhinitis, unspecified Category: Medical Plan: FLONASE NASAL SPRAY 1 OR 2 SPRAYS IN EACH NOSTRIL DAILY NEEDED MONTELUKAST 10 MG DAILY LORATADINE 10 MG ONCE A DAY P.R.N. CONTINUE OMALIZUMAB 300 MG SUBQ Q.4 WEEKS Medications: New fluticasone propion-salmeterol 250-50 mcg/dose (Advair Diskus) 1 inh inhalation BID 30 days 60 ea 5RF ASTHMA/COPD Coding Level of Care Code Est Pt Level 4 (35367) Diagnoses Asthma-COPD overlap syndrome J44.9 Allergic rhinitis J30.9
== END 2024-02-19 10:02 | disposition home or self-care (01) ==
PROVIDERS: PCP Family Medicine; Visit Provider Internal Medicine
DX: J44.9 Chronic obstructive pulmonary disease, unspecified (principal); J30.9 Allergic rhinitis, unspecified
CPT/HCPCS: 99214

== ENCOUNTER → 2024-02-19 09:33 | Outpatient (BNVA) | payer OTHER, SELFPAY | PROVIDERS: PCP Family Medicine; Visit Provider Internal Medicine | DX: J44.9 Chronic obstructive pulmonary disease, unspecified (principal); J30.9 Allergic rhinitis, unspecified | CPT/HCPCS: 99212 ==

== ENCOUNTER 2024-02-27 10:26 | Outpatient (REF) | payer OTHER, SELFPAY ==
--- NOTE | ~2024-02-27 | XR_ITS ---
EXAMINATION: XR HIP, RIGHT CLINICAL INFORMATION: Right hip pain. COMPARISON: 11/21/2019 TECHNIQUE: 2 views of the right hip. FINDINGS: Moderate narrowing of the medial compartment with joint space narrowing and hypertrophic change. Alignment preserved. Amorphous soft tissue calcifications adjacent to the greater trochanter and right inferior pubic ramus. XR/XR hip RT min 2V IMPRESSION: Moderate degenerative changes right hip.
== END 2024-02-27 10:27 | disposition home or self-care (01) ==
LOC: HO.XRAY 10:26
PROVIDERS: PCP Family Medicine; Visit Provider Family Medicine
DX: M25.551 Pain in right hip (principal)
CPT/HCPCS: 73502

== ENCOUNTER 2024-04-24 10:24 | Outpatient (AMB) | payer OTHER, SELFPAY ==
--- NOTE | 2024-04-24 10:27 | A.OFFVIS_ITS ---
Intake Visit Reasons: 6M Follow Up-Labs(set) Intake Note: Patient is Present for 6M Follow Up labs Urology Med: Tadalafil, Testosterone, Terazosin Antibiotic Allergy: None Blood Thinner: None Clock Repair Technician Required: No Allergies REAGAN Inhibitors Allergy (Mild, Verified 04/24/24 10:27) Unknown bupropion [From Wellbutrin] Allergy (Mild, Verified 04/24/24 10:27) Unknown simvastatin Adverse Reaction (Unknown, Verified 04/24/24 10:27) myalgia Medication List - Last Reconciled 04/24/24 by Darien Gómez MD acetaminophen 650 mg PO Q4H PRN albuterol sulfate 90 mcg/actuation 1 puff inhalation QID PRN 30 days blood sugar diagnostic As directed clotrimazole 1% appl topical DAILY diazepam 2 mg PO BID PRN 1 day fluticasone propion-salmeterol 250-50 mcg/dose (Advair Diskus) 1 inh inhalation BID fluticasone propion-salmeterol 250-50 mcg/dose (Advair Diskus) 1 inh inhalation BID 30 days fluticasone propionate 50 mcg/actuation 1 spray intranasal DAILY PRN hydrochlorothiazide 25 mg PO DAILY hydrocortisone 1% topical DAILY insulin detemir U-100 units subcut insulin syringe-needle U-100 As directed lancets As directed levalbuterol tartrate 45 mcg/actuation 2 puffs PO Q4-6H PRN losartan 100 mg PO DAILY metformin 1,000 mg PO BID metoprolol succinate ER 50 mg PO DAILY montelukast 10 mg PO DAILY naproxen 500 mg PO DAILY PRN omalizumab 300 mg subcut Q4W omeprazole 80 mg PO DAILY rosuvastatin 5 mg PO DAILY syringe with needle (BD Luer-Stefan Syringe) As directed weekly syringe with needle, safety Qweekly tadalafil 20 mg PO ONCE PRN 30 days tadalafil 10 mg PO DAILY 90 days terazosin 10 mg PO BEDTIME 90 days testosterone cypionate (Depo-Testosterone) 80 mg (0.4 mL) IM QWEEK 28 days trazodone 500 mg PO BEDTIME triamcinolone acetonide 0.025% topical BID HPI Comments Details: Philip is a pleasant male. He is a patient of Dr. Lu. He is seen for the following urologic issues - hypogonadism in setting of diabetes - postvoid dribbling - BPH - erectile dysfunction Six month review Testosterone 0.4 cc intramuscular weekly Erectile dysfunction Cialis 10 mg daily - at 20 mg on demand Lower urinary tract symptoms - terazosin 10 mg T at appropriate level Happy with current results Does have some urinary weakness. Had previous procedure Would like office cystoscopy Hypogonadism Longstanding On testosterone replacement Current therapy 0.5 cc intramuscular weekly Laboratories - 02/17 T 1300, Hct 48 - 04/20 761 4.8 45. 10/22 T 722 P 3.4, 04/21 555 3.5 43, 10/23 460 2.8 44 HBA1c 7.7, 02/20 920 3.7 HBA1c 7.0 Continue with current dosing, may need to be decreased Erectile dysfunction Longstanding Does respond to Cialis 10 mg daily BPH Postvoid dribbling Current therapy 10 mg terazosin Previous prostate procedure Previously used imipramine p.o. b.i.d. Insulin-dependent diabetic PSA 10/21 3.6 Bilateral inguinal lymphadenopathy Palpable high inguinal region bilateral 04/19 CT scan mildly thickened bladder, right 2 cm inguinal lymph node PFSH Medical History Allergic rhinitis Hypogonadism in male Urge incontinence Hypogonadism male BPH w/o urinary obs/LUTS No known health problems Asthma High cholesterol IDDM (insulin dependent diabetes mellitus) HTN (hypertension) Social History Patient Tobacco Use Status: Former Tobacco user Advance Directives Date on File: 06/30/20 Review of Systems Const Denies chills and Denies fever(s) Card Reports no additional complaints and Denies syncope Resp Denies cough GI Denies abdominal pain and Denies heartburn Reports as per HPI and Denies change in libido Neuro Denies syncope Psych Denies change in libido Endo Denies change in libido Physical Exam Const General: cooperative, healthy appearing, comfortable and no acute distress Orientation/consciousness: patient oriented x3 HEENT Face and sinus: Yes normal facial exam Mouth: moist mucous membranes Neck Neck: Yes normal visual inspection, Yes full ROM and Yes trachea midline Chest Chest palpation & inspection: normal inspection of the chest Resp Effort & Inspection: normal respiratory effort, able to speak in complete senten zara and no respiratory distress GI Inspection: Yes normal to inspection Back/Spine/Pelvis Cervical Spine: normal cervical lordosis Thoracic/Lumbar Spine: thoracic and lumbar spine normal to inspection Skin General skin exam: no rashes or lesions noted Neuro General: patient oriented x3, gait normal, tone normal and moves all extremities Extrem General: Yes normal to inspection and Yes capillary refill normal Results AMB Urinalysis, Automated UA Leukoctes 0 Evelyne/uL Last Edit by ADELIA Sen on 04/24/24 10:36 UA Nitrite Negative Last Edit by nAna Chavez CCM on 04/24/24 10:36 UA Urobilinogen 0.2 mg/dL Last Edit by Anna Chavez CCM on 04/24/24 10:3 6 UA Protein 0 mg/dL Last Edit by Anna Chavez [facility] on 04/24/24 10:36 UA pH 8.0 Last Edit by Anna Chavez CCM on 04/24/24 10:36 UA Blood 0 To/uL Last Edit by Anna Chavez CCM on 04/24/24 10:36 UA Specific [place] 1.010 Last Edit by Anna Chavez CCM on 04/24/24 10: 36 UA Ketone Negative Last Edit by ADELIA Sen on 04/24/24 10:36 UA Bilirubin 0 mg/dL Last Edit by Anna Chavez CCM on 04/24/24 10:36 UA Glucose 0 mg/dL Last Edit by Anna Chavez [facility] on 04/24/24 10:36 Results Reviewed Results Reviewed: Laboratory Last Values Urine pH (Auto) 8.0 04/24/24 10:36 Specific [place] (Auto) 1.010 04/24/24 10:36 Urine Protein (Auto) 0 mg/dL 04/24/24 10:36 Glucose (UA)(Auto) 0 mg/dL 04/24/24 10:36 Urine Ketones (Auto) Negative 04/24/24 10:36 Urine Blood (Auto) 0 To/uL 04/24/24 10:36 Urine Nitrite (Auto) Negative 04/24/24 10:36 Urine Bilirubin (Auto) 0 mg/dL 04/24/24 10:36 Urine Urobilinogen (Auto) 0.2 mg/dL 04/24/24 10:36 Leukocyte Esterase (Auto) 0 Evelyne/uL 04/24/24 10:36 Assessment & Plan Assessment & Plan (1) Hypogonadism in male: Code(s): E29.1 - Testicular hypofunction Category: Medical (2) BPH w/o urinary obs/LUTS: Code(s): N40.0 - Benign prostatic hyperplasia without lower urinary tract symptoms Category: Medical (3) Erectile dysfunction: Code(s): N52.9 - Male erectile dysfunction, unspecified Category: Medical Plan Office cystoscopy Orders: Orders AMB Urinalysis Automated Today Z13.9 - Encounter for screening, unspecified Medications: New diazepam Take medication after arrival at office 2 mg PO BID 1 day PRN 2 tabs 0RF anxiety N40.0 - Benign prostatic hyperplasia without lower urinary tract symptoms, R45.89 - Other symptoms and signs involving emotional state Refilled tadalafil 10 mg PO DAILY 90 days 90 tabs 1RF sexual activity N52.01 - Erectile dysfunction due to arterial insufficiency terazosin 10 mg PO BEDTIME 90 days 90 caps 1RF N13.8 - Other obstructive and reflux uropathy, N40.0 - Benign prostatic hyperplasia without lower urinary tract symptoms, N40.1 - Benign prostatic hyperplasia with lower urinary tract symptoms testosterone cypionate (Depo-Testosterone) 80 mg (0.4 mL) IM QWEEK 28 days 2 mL 5RF E29.1 - Testicular hypofunction Patient Instructions: Imaging studies, laboratory and physical exam results were discussed and reviewed in detail. No major barriers to patient understanding were identified. An opportunity to ask questions regarding the treatment plan was provided. All questions were answered. The patient expressed understanding and agreement with the above treatment plan. The patient is aware they should contact our office by phone for worsening of their current condition or the appearance of new urologic symptoms. Compliance is encouraged with any medications and followup testing that is ordered. It is a privilege to participate in the urologic care of your patient. If you have any questions or concerns regarding treatment for the above conditions, or other urologic issues, please do not hesitate to contact me. The office telephone contact is [phone]. This note is constructed using voice recognition software. While every effort has been made to ensure accuracy sample display preparer errors may have been included. Yours sincerely, Dr Darien Gómez MD, [facility] - Urology Providers of Expert, Compassionate Care for the Genitourinary System Coding Level of Care Code Est Pt Level 4 (32802) Diagnoses Hypogonadism in male E29.1 BPH w/o urinary obs/LUTS N40.0 Erectile dysfunction N52.9
== END 2024-04-24 10:57 | disposition home or self-care (01) ==
PROVIDERS: PCP Family Medicine; Visit Provider Urology
DX: E29.1 Testicular hypofunction (principal); N40.0 Benign prostatic hyperplasia without lower urinary tract symptoms; N52.9 Male erectile dysfunction, unspecified; Z13.9 Encounter for screening, unspecified
CPT/HCPCS: 99214

== ENCOUNTER → 2024-04-24 10:24 | Outpatient (BNVA) | payer OTHER, SELFPAY | PROVIDERS: PCP Family Medicine; Visit Provider Urology | DX: E29.1 Testicular hypofunction (principal); N40.0 Benign prostatic hyperplasia without lower urinary tract symptoms; N52.9 Male erectile dysfunction, unspecified | CPT/HCPCS: 81003; 99212 ==

== ENCOUNTER 2024-05-29 09:31 | Day surgery (SDC) | payer OTHER, SELFPAY ==
--- NOTE | 2024-05-27 14:13 | HO.ANESPROP2 ---
Documented by User: Kiera Garvin NP 05/27/24 14:14 HPI - Anesthesia Eval Consult details Narrative: 68yo M for Colonoscopy [facility] Active Problems Active Problems: All Active Problems BPH w/o urinary obs/LUTS (Acute) Allergic rhinitis (Acute) Erectile dysfunction (Acute) Inguinal lymphadenopathy (Acute) Hypogonadism in male (Acute) Asthma-COPD overlap syndrome (Acute) Environmental allergies (Acute) Severe persistent allergic asthma (Acute) Past Medical History Medical History Arthritis Hyperlipidemia Diabetes GERD (gastroesophageal reflux disease) Diverticulosis Tubular adenoma Allergic rhinitis Hypogonadism in male Urge incontinence Hypogonadism male BPH w/o urinary obs/LUTS No known health problems Asthma High cholesterol IDDM (insulin dependent diabetes mellitus) HTN (hypertension) Surgical History Surgical History History of esophagogastroduodenoscopy (EGD) H/O colonoscopy History of prostate surgery Social History Social History Patient Tobacco Use Status: Former Tobacco user Advance Directives: No Advance Directives Information Provided: Yes Advance Directives Date on File: 06/30/20 Meds Allergies Allergy/AdvReac Type Severity Reaction Status Date / Time REAGAN Inhibitors Allergy Mild Rash Verified 05/29/24 10:00 bupropion [From Wellbutrin] Allergy Mild Unknown Verified 05/29/24 10:00 simvastatin AdvReac Unknown myalgia Verified 05/29/24 10:00 Home Medications ?Medication ?Instructions ?Recorded ?Confirmed ?Last Taken ?Type metformin 1,000 mg tablet 1,000 mg PO BID 08/19/20 05/28/24 Unknown History rosuvastatin 5 mg tablet 5 mg PO DAILY 08/19/20 05/28/24 Unknown History trazodone 100 mg tablet 100 mg PO BEDTIME 08/19/20 05/28/24 Unknown History blood sugar diagnostic #10 ea 10/11/20 04/24/24 Unknown History insulin syringe-needle U-100 0.5 #10 ea 10/11/20 04/24/24 Unknown History mL 31 gauge x 5/16 lancets 28 gauge #100 ea 10/11/20 04/24/24 Unknown History fluticasone propionate 50 1 spray intranasal BID PRN Allergy 10/24/23 05/28/24 Unknown History mcg/actuation nasal Symptoms spray,suspension calcium citrate 500 mg (2,376 mg) 500 mg PO DAILY 05/28/24 05/28/24 Unknown History effervescent tablet cetirizine 10 mg tablet 10 mg PO DAILY 05/28/24 05/28/24 Unknown History fluticasone propionate 110 2 puff inhalation BID 05/28/24 05/28/24 Unknown History mcg/actuation HFA aerosol inhaler insulin detemir U-100 100 unit/mL 20 unit subcut QPM diabetes 05/28/24 Unknown History subcutaneous solution (Levemir mellitus U-100 Insulin) loperamide 2 mg capsule (Imodium 2 mg PO Q6H PRN Diarrhea 05/28/24 05/28/24 Unknown History A-D) losartan 50 mg-hydrochlorothiazide 1 tab PO DAILY 05/28/24 05/28/24 Unknown History 12.5 mg tablet omeprazole 20 mg capsule,delayed 20 mg PO DAILY 05/28/24 05/28/24 Unknown History release tamsulosin 0.4 mg capsule 0.4 mg PO DAILY 05/28/24 05/28/24 Unknown History testosterone cypionate 200 mg/mL 200 mg IM Q2W 05/28/24 05/28/24 Unknown History intramuscular oil (Depo-Testosterone) Exam Pertinent Lab Results Pertinent Lab Results: Laboratory Tests 10/15/23 02/08/24 09:58 08:08 WBC 6.8 Hgb 14.6 Hct 44.3 Plt Count 261 Sodium 144 Potassium 4.4 Chloride 106 Carbon Dioxide 28 BUN 11 Creatinine 0.94 Assessment and Plan Assessment Anesthesia Assessment: Chart Reviewed Documented by User: Cee Truong MD 05/29/24 10:04 [facility] Past Medical History Medical History Arthritis Hyperlipidemia Diabetes GERD (gastroesophageal reflux disease) Diverticulosis Tubular adenoma Allergic rhinitis Hypogonadism in male Urge incontinence Hypogonadism male BPH w/o urinary obs/LUTS No known health problems Asthma High cholesterol IDDM (insulin dependent diabetes mellitus) HTN (hypertension) Family History Family history of problems with anesthesia: No Surgical History Surgical History History of esophagogastroduodenoscopy (EGD) H/O colonoscopy History of prostate surgery History of Problems with Anesthesia: No Social History Social History Patient Tobacco Use Status: Former Tobacco user Advance Directives: No Advance Directives Information Provided: Yes Advance Directives Date on File: 06/30/20 Meds Allergies Allergy/AdvReac Type Severity Reaction Status Date / Time REAGAN Inhibitors Allergy Mild Rash Verified 05/29/24 10:00 bupropion [From Wellbutrin] Allergy Mild Unknown Verified 05/29/24 10:00 simvastatin AdvReac Unknown myalgia Verified 05/29/24 10:00 Home Medications ?Medication ?Instructions ?Recorded ?Confirmed ?Last Taken ?Type metformin 1,000 mg tablet 1,000 mg PO BID 08/19/20 05/28/24 Unknown History rosuvastatin 5 mg tablet 5 mg PO DAILY 08/19/20 05/28/24 Unknown History trazodone 100 mg tablet 100 mg PO BEDTIME 08/19/20 05/28/24 Unknown History blood sugar diagnostic #10 ea 10/11/20 04/24/24 Unknown History insulin syringe-needle U-100 0.5 #10 ea 10/11/20 04/24/24 Unknown History mL 31 gauge x 5/16 lancets 28 gauge #100 ea 10/11/20 04/24/24 Unknown History fluticasone propionate 50 1 spray intranasal BID PRN Allergy 10/24/23 05/28/24 Unknown History mcg/actuation nasal Symptoms spray,suspension calcium citrate 500 mg (2,376 mg) 500 mg PO DAILY 05/28/24 05/28/24 Unknown History effervescent tablet cetirizine 10 mg tablet 10 mg PO DAILY 05/28/24 05/28/24 Unknown History fluticasone propionate 110 2 puff inhalation BID 05/28/24 05/28/24 Unknown History mcg/actuation HFA aerosol inhaler insulin detemir U-100 100 unit/mL 20 unit subcut QPM diabetes 05/28/24 Unknown History subcutaneous solution (Levemir mellitus U-100 Insulin) loperamide 2 mg capsule (Imodium 2 mg PO Q6H PRN Diarrhea 05/28/24 05/28/24 Unknown History A-D) losartan 50 mg-hydrochlorothiazide 1 tab PO DAILY 05/28/24 05/28/24 Unknown History 12.5 mg tablet omeprazole 20 mg capsule,delayed 20 mg PO DAILY 05/28/24 05/28/24 Unknown History release tamsulosin 0.4 mg capsule 0.4 mg PO DAILY 05/28/24 05/28/24 Unknown History testosterone cypionate 200 mg/mL 200 mg IM Q2W 05/28/24 05/28/24 Unknown History intramuscular oil (Depo-Testosterone) Exam Airway Mallampati Class: II TM Dist: >3cm Heart: rrr Lungs: cta Assessment and Plan Assessment Anesthesia Assessment: Anesthesia Plan Discussed Final Anesthetic Review Family History of Problems with Anesthesia: No History of Problems with Anesthesia: No NPO: Yes ASA Class: III Final Preanesthetic Review: No Changes in Pt Med Stat (bs 165, took metoprolol and flovent), Meds/Allgs Chart Reviewed, Consent Obtained/Reviewed and Anes Risks/Benef Reviewed Patient Risk: Intermediate Procedure Risk: Low Anesthetic Plan Anesthetic Plan: MAC: Disposition: Standard PACU
[2024-05-28 08:04] VITALS: BMI 24.7
[2024-05-29 10:05] VITALS: BMI 25.1
[2024-05-29 10:33] VITALS: BP 145/51; PULSE 81; RESP 16; TEMP 36.9; O2SAT 95
[2024-05-29] MEDS: Lactated Ringers 1,000 ML 100 ML IVCONT (10:35)
[2024-05-29 10:38] LABS: Glucose, Whole Blood 151 mg/dL (60-115)
[2024-05-29 11:44] VITALS: BP 124/60; PULSE 69; RESP 16; TEMP 36.6; O2SAT 97
--- NOTE | 2024-05-29 11:47 | P.BOP_ITS ---
Brief Operative Note Date of Service: 05/29/24 Pre-op diagnosis: Screening Post-op diagnosis: other (Colon polyps) Procedure: Colonoscopy to the cecum and TI with hot snare polypectomy x 4 Surgeon: Carrillo Zuluaga MD Anesthesia: MAC Was an Chair Mechanic used for this Procedure?: No Estimated blood loss (mL): 0 Pathology: other (A. Ascending colon polyp B. Transverse colon polyp C. Polyp at 60cm D. Rectal polyp) Condition: stable Disposition: PACU
[2024-05-29 11:59] VITALS: BP 128/64; PULSE 82; RESP 16; TEMP 36.6; O2SAT 99
--- NOTE | 2024-05-29 12:42 | OP_ITS ---
DATE OF SERVICE: 05/29/2024 SURGEON: Carrillo Zuluaga MD INDICATIONS: The patient presents for evaluation of colorectal cancer screening and personal history of tubular adenoma of the colon. Full consent has been obtained from him for this, including risks of bleeding and perforation. PREOPERATIVE DIAGNOSIS: POSTOPERATIVE DIAGNOSIS: PROCEDURE PERFORMED: Colonoscopy to the cecum and terminal ileum with hot snare polypectomy. ESTIMATED BLOOD LOSS: COMPLICATIONS: ANESTHESIA: Monitored anesthesia care. ASSISTANTS: SPECIMENS: PREOPERATIVE DIAGNOSES: Colorectal cancer screening and personal history of tubular adenoma of the colon. POSTOPERATIVE DIAGNOSES: Colorectal cancer screening, personal history of tubular adenoma of the colon, colon polyps, diverticulosis, and internal hemorrhoids. DESCRIPTION OF PROCEDURE: The patient was placed in the left lateral decubitus position. The digital rectal exam revealed no abnormalities. The Olympus video pediatric colonoscope was then entered into the rectum and advanced easily to the cecum. Once in the cecum, I did identify normal-appearing cecal pouch with appendiceal orifice and a normal-appearing ileocecal valve. The terminal ileum was cannulated and appeared normal. The scope was withdrawn back in the colon. The entire cecum and ileocecal valve appeared normal. The scope was slowly withdrawn assessing all mucosal surfaces carefully. Preparation was excellent. In the proximal ascending colon just outside of the cecum, was an approximately 8 to 10 mm polyp, which was removed by hot snare polypectomy and recovered by suction. The polypectomy site appeared clean, without any sign of residual polyp nor bleeding. In the transverse colon, was an approximately 6 mm polyp, which was removed by hot snare polypectomy and recovered by suction. The polypectomy site appeared clean, without any sign of residual polyp nor bleeding. At 60 cm, was an approximately 8 to 10 mm polyp, which was removed by hot snare polypectomy and recovered by suction. The polypectomy site appeared clean, without any sign of residual polyp nor bleeding. In the rectum, was an approximately 6 mm polyp, which was removed by hot snare polypectomy and recovered by suction. The polypectomy site appeared clean, without any sign of residual polyp nor bleeding. I did not visualize any other polyps, colitis, nor angiodysplasia. There was a moderate amount of sigmoid diverticulosis. In the rectum, scope was retroflexed, visualizing internal hemorrhoids, but no other pathology. The rectal mucosa appeared normal. Scope was straightened and withdrawn from the patient. He tolerated the procedure well and was returned to the recovery area in stable condition. IMPRESSION: 1. Colon polyps. 2. Diverticulosis. 3. Internal hemorrhoids. PLAN: The results of the pathology will be checked. He has been advised not to use any aspirin and NSAIDs for 1 week. I would recommend a repeat colonoscopy in 5 years. He will, otherwise, see me on a p.r.n. basis. MD TIMBO Yu/ANABEL / [phone]
== END 2024-05-29 12:16 | disposition home or self-care (01) ==
PROVIDERS: PCP Family Medicine; Visit Provider Internal Medicine
PROC: 0DJD8ZZ Inspection of Lower Intestinal Tract, Via Natural or Artificial Opening Endoscopic (ICD-10-PCS; CPT 45378; principal; 2024-05-29 10:30)
DX: Z12.11 Encounter for screening for malignant neoplasm of colon (principal); Z86.010 Personal history of colon polyps; D12.2 Benign neoplasm of ascending colon; D12.8 Benign neoplasm of rectum; K63.5 Polyp of colon; K57.30 Diverticulosis of large intestine without perforation or abscess without bleeding; K64.8 Other hemorrhoids; K21.9 Gastro-esophageal reflux disease without esophagitis; I10 Essential (primary) hypertension; E78.5 Hyperlipidemia, unspecified; J45.909 Unspecified asthma, uncomplicated; E11.9 Type 2 diabetes mellitus without complications; Z79.4 Long term (current) use of insulin; Z79.84 Long term (current) use of oral hypoglycemic drugs; Z79.51 Long term (current) use of inhaled steroids; Z79.899 Other long term (current) drug therapy; Z98.890 Other specified postprocedural states; Z87.891 Personal history of nicotine dependence
CPT/HCPCS: 45385; 82947; 88305; J2704

== ENCOUNTER → 2024-06-05 08:52 | Outpatient (BNVA) | payer OTHER, SELFPAY | PROVIDERS: PCP Family Medicine; Visit Provider Urology ==

== ENCOUNTER 2024-06-17 12:08 | Emergency (ER) | payer OTHER, SELFPAY ==
--- NOTE | ~2024-06-17 | US_ITS ---
EXAMINATION: US TRIPLEX UPPER EXTREMITY, RIGHT CLINICAL INFORMATION: Upper arm tenderness COMPARISON: None available. TECHNIQUE: Color-flow triplex imaging with spectral analysis and compression Doppler was performed on the right upper extremity. FINDINGS: The right internal jugular, subclavian, and axillary veins are patent and free of thrombus. The imaged segment of the right brachiocephalic vein is patent. Spectral doppler waveforms are normal. The brachial, basilic, cephalic, radial, and ulnar veins are patent and compressible. US/US venous duplex UE RT IMPRESSION: No evidence of deep venous thrombosis involving the right upper extremity. Electronically signed by: Pankaj Torres MD 06/17/2024 03:32 PM EDT
[2024-06-17 12:54] VITALS: BP 134/80; PULSE 91; RESP 18; TEMP 37.2; O2SAT 94; BMI 27.4
--- NOTE | 2024-06-17 12:55 | ED.GENADULT ---
HPI - General Adult General Chief complaint: Extremity Problem Stated complaint: r arm pain Time Seen by Provider: 06/17/24 13:55 Source: patient, RN notes reviewed and old records reviewed Mode of arrival: ambulatory History of Present Illness ED Provider: Ellen Oliver PA-C HPI narrative: 68-year-old male with past medical history of COPD, HLD, diabetes, GERD, asthma, HLD, HTN, presenting to the ED complaining of right upper arm/deltoid pain s/p son administer testosterone injection for him on Saturday. States son typically pinches skin prior to injection however was in a chanel and did not pinched the skin/put needle in all the way. Reports increasing pain with movement and sleeping. Denies known injury/trauma or fall, numbness/tingling, weakness Related Data Home Medications ?Medication ?Instructions ?Recorded ?Confirmed metformin 1,000 mg tablet 1,000 mg PO BID 08/19/20 05/29/24 rosuvastatin 5 mg tablet 5 mg PO DAILY 08/19/20 05/29/24 trazodone 100 mg tablet 100 mg PO BEDTIME 08/19/20 05/29/24 blood sugar diagnostic #10 ea 10/11/20 05/29/24 insulin syringe-needle U-100 0.5 #10 ea 10/11/20 05/29/24 mL 31 gauge x 5/16 lancets 28 gauge #100 ea 10/11/20 05/29/24 fluticasone propionate 50 1 spray intranasal BID PRN Allergy 10/24/23 05/29/24 mcg/actuation nasal Symptoms spray,suspension calcium citrate 500 mg (2,376 mg) 500 mg PO DAILY 05/28/24 05/29/24 effervescent tablet cetirizine 10 mg tablet 10 mg PO DAILY 05/28/24 05/29/24 insulin detemir U-100 100 unit/mL 20 unit subcut QPM diabetes 05/28/24 05/29/24 subcutaneous solution (Levemir mellitus U-100 Insulin) loperamide 2 mg capsule (Imodium 2 mg PO Q6H PRN Diarrhea 05/28/24 05/29/24 A-D) losartan 50 mg-hydrochlorothiazide 1 tab PO DAILY 05/28/24 05/29/24 12.5 mg tablet omeprazole 20 mg capsule,delayed 20 mg PO DAILY 05/28/24 05/29/24 release tamsulosin 0.4 mg capsule 0.4 mg PO DAILY 05/28/24 05/29/24 testosterone cypionate 200 mg/mL 200 mg IM Q2W 05/28/24 05/29/24 intramuscular oil (Depo-Testosterone) fluticasone 250 mcg-salmeterol 50 1 ea inhalation BID asthma 05/29/24 05/29/24 mcg/dose blistr powdr for inhalation (Wixela Inhub) metoprolol succinate 50 mg 50 mg PO QAM 05/29/24 05/29/24 tablet,extended release 24 hr Previous Rx's ?Medication ?Instructions ?Recorded syringe with needle 3 mL 23 gauge #4 ea 05/28/22 x 1 1/2 (BD Luer-Stefan Syringe) syringe with needle, safety 3 mL #4 ea 10/25/23 22 gauge x 1 1/2 albuterol sulfate 90 mcg/actuation 1 puff inhalation QID PRN 05/07/24 aerosol inhaler shortness of breath or wheezing 30 days #8.5 grams Allergies Allergy/AdvReac Type Severity Reaction Status Date / Time REAGAN Inhibitors Allergy Mild Rash Verified 06/17/24 12:59 bupropion [From Wellbutrin] Allergy Mild Unknown Verified 06/17/24 12:59 simvastatin AdvReac Unknown myalgia Verified 06/17/24 12:59 Review of Systems Review of Systems: Yes all other systems are reviewed and are negative Constitutional: Constitutional: Reports as per [facility] Past Medical History Attestation statement: The following information was validated with the patient. Source: old records reviewed Medical History COPD (chronic obstructive pulmonary disease) Arthritis Hyperlipidemia Diabetes GERD (gastroesophageal reflux disease) Diverticulosis Tubular adenoma Allergic rhinitis Hypogonadism in male Urge incontinence Hypogonadism male BPH w/o urinary obs/LUTS No known health problems Asthma High cholesterol IDDM (insulin dependent diabetes mellitus) HTN (hypertension) Surgical History History of esophagogastroduodenoscopy (EGD) H/O colonoscopy History of prostate surgery Social History Social History Patient Tobacco Use Status: Former Tobacco user Advance Directives: Yes Advance Directives on File: Yes Advance Directives Date on File: 06/30/20 Physical Exam ED Vital Signs: Vital Signs - 24 hr 06/17/24 12:54 Temperature 98.9 F Pulse Rate 91 Respiratory Rate 18 Blood Pressure 134/80 Pulse Oximetry 94 Oxygen Delivery Method Room Air BMI result Body Mass Index 27.4 Const General: cooperative, healthy appearing and no acute distress Orientation/consciousness: patient oriented x3 Limitations: no limitations HENMT Head: Yes normal to inspection and Yes atraumatic Ears: hearing grossly normal bilaterally General nose exam: Normal external nose present Face and sinus: Yes normal facial exam Eyes General: appearance normal, both eyes and all related structures EOM: EOMs intact bilaterally Neck Neck: Yes normal visual inspection and Yes no meningeal signs Resp Effort & Inspection: normal respiratory effort and no respiratory distress Cardio Rate: regular rate Skin Rashes: no rashes Wounds: no wounds Neuro General: patient oriented x3, tone normal and no meningeal signs Cranial nerves: Yes CN's II-XII intact bilaterally Gait exam (Neuro): Normal gait present Extrem Other: Right deltoid without noted deformity, no erythema/ecchymosis or warmth. Tender to palpation. Limited ROM to right arm secondary to pain. Neurovascularly intact distally. No crepitus General: Yes normal to inspection Course Course Course Narrative: This is a rapid medical exam performed by Ramírez Walden NP: Additional HPI, ROS, PE not included below will be deferred to primary provider. Patient is a 68-year-old male presenting to the ED with complaint of right upper arm pain since his son administered a testosterone injection on Saturday. States son typically does his injections and he has not had complications in the past. Pain with arm movements, difficulty getting dressed, etc. No erythema or warmth noted to upper arm. Plan: ultrasound US venous duplex UE RT IMPRESSION: No evidence of deep venous thrombosis involving the right upper extremity. Results discussed with patient including worrisome signs and symptoms and strict return precautions, and when to return to the emergency department. They verbalized understanding and feel safe for discharge at this time. Medical Decision Making Medical Decision Making MDM Narrative: 68-year-old male with past medical history of COPD, HLD, diabetes, GERD, asthma, HLD, HTN, presenting to the ED complaining of right upper arm/deltoid pain s/p son administer testosterone injection for him on Saturday. On exam vital signs stable, NAD, nontoxic appearing. Physical exam as noted above. Concern for MSK pain vs contusion vs hematoma vs DVT. No evidence of cellulitis. Low suspicion for abscess or fracture. unlikely ACS Plan: Ultrasound ordered in triage Please refer to course for remaining clinical decision making, interpretation of labs/imaging results, and discussions with consultants and/or family members. Differential Diagnosis Differential Diagnoses: The differential diagnosis associated with the presentation includes As above Independent Interpretation I performed an independent interpretation of an: Ultrasound Radiology Impression Discussion of test interpretation with radiology: I have reviewed the radiologist's reading. External Record Review External record reviewed: Inpatient record, Office record, Outpatient record, Prior outpatient labs, Prior outpatient radiology, Primary care record and Outside ED record Tests considered The following testing was considered but not selected: As above Prescription Management I considered prescription management with: Pain Medication Discharge Plan Discharge Clinical Impression: Arm pain Prescriptions: No Action (DME) syringe with needle [BD Luer-Stefan Syringe] 3 mL 23 gauge x 1 1/2 syringe See Rx Instructions .ROUTE QWEEK Qty: 4 5RF Rx Instructions: As directed weekly albuterol sulfate 90 mcg/actuation HFA aerosol inhaler 1 puff inhalation QID PRN (Reason: shortness of breath or wheezing) 30 Days Qty: 8.5 2RF loperamide [Imodium A-D] 2 mg Capsule 2 mg PO Q6H PRN (Reason: Diarrhea) cetirizine 10 mg Tablet 10 mg PO DAILY tamsulosin 0.4 mg Capsule 0.4 mg PO DAILY calcium citrate 500 mg Tablet, Effervescent 500 mg PO DAILY omeprazole 20 mg Capsule,Delayed Release(Dr/Ec) 20 mg PO DAILY losartan-hydrochlorothiazide 50-12.5 mg Tablet 1 tab PO DAILY Levemir U-100 Insulin 100 unit/mL solution 20 unit subcut QPM testosterone cypionate [Depo-Testosterone] 200 mg/mL oil 200 mg IM Q2W metoprolol succinate 50 mg tablet extended release 24 hr 50 mg PO QAM fluticasone propion-salmeterol [Wixela Inhub] 250-50 mcg/dose blister with device 1 ea inhalation BID rosuvastatin 5 mg tablet 5 mg PO DAILY metformin 1,000 mg tablet 1,000 mg PO BID trazodone 100 mg tablet 100 mg PO BEDTIME (DME) insulin syringe-needle U-100 0.5 mL 31 gauge x 5/16 syringe See Rx Instructions .ROUTE TID Qty: 10 Rx Instructions: As directed (DME) lancets 28 gauge misc See Rx Instructions topical BID Qty: 100 Rx Instructions: As directed (DME) FreeStyle Lite Strips Strip See Rx Instructions Not Applicable BID Qty: 10 Rx Instructions: As directed fluticasone propionate 50 mcg/actuation spray,suspension 1 spray intranasal BID PRN (Reason: Allergy Symptoms) (DME) BD Eclipse Luer-Stefan 3 mL 22 gauge x 1 1/2 syringe See Rx Instructions .ROUTE .MEDSUPPLY Qty: 4 6RF Rx Instructions: Qweekly Print Language: Belgian
[2024-06-17 16:14] VITALS: BP 134/80; PULSE 91; RESP 18; TEMP 37.2; O2SAT 94
== END 2024-06-17 16:14 | disposition home or self-care (01) ==
PROVIDERS: Emergency Provider Emergency Medicine; PCP Family Medicine
DX: M79.601 Pain in right arm (principal); R60.0 Localized edema; E11.9 Type 2 diabetes mellitus without complications; Z79.899 Other long term (current) drug therapy; Z79.4 Long term (current) use of insulin
CPT/HCPCS: 93971; 99282; 99284

== ENCOUNTER → 2024-06-23 14:50 | Outpatient (BNVA) | payer OTHER, SELFPAY | PROVIDERS: PCP Family Medicine; Visit Provider Nurse Practitioner Family | DX: Z01.811 Encounter for preprocedural respiratory examination (principal); J44.9 Chronic obstructive pulmonary disease, unspecified; J30.9 Allergic rhinitis, unspecified | CPT/HCPCS: 99212 ==

== ENCOUNTER 2024-06-24 10:22 | Outpatient (REF) | payer OTHER, SELFPAY ==
--- NOTE | ~2024-06-24 | XR_ITS ---
EXAMINATION: XR CHEST CLINICAL INFORMATION: Cough. COMPARISON: Most recent chest radiograph dated 03/23/2020. TECHNIQUE: 2 views of the chest were obtained. FINDINGS: The lungs are clear. The cardiomediastinal silhouette is normal in size. There is no pleural effusion or pneumothorax. No acute osseous abnormality. XR/XR chest 2V IMPRESSION: No acute cardiopulmonary findings. Electronically signed by: Walker Marshall MD 06/24/2024 12:03 PM EDT
== END 2024-06-24 10:23 | disposition home or self-care (01) ==
LOC: HO.XRAY 10:22
PROVIDERS: PCP Family Medicine; Visit Provider Nurse Practitioner Family
DX: R05.9 Cough, unspecified (principal)
CPT/HCPCS: 71046

== ENCOUNTER 2024-06-26 14:17 | Outpatient (AMB) | payer OTHER, SELFPAY ==
--- NOTE | 2024-06-26 14:18 | MHC.OFFVIS ---
Intake Visit Reasons: Discuss medication(testo) Intake Note: Patient is Present for Telephone discussion on Testosterone Med Change Urology Med:Tadalafil, Tamsulosin, Testosterone Antibiotic Allergy: None Blood Thinner:None Patient wants to discuss other options on testosterone therapy due to current therapy is causing patient pain from not properly injecting himself with Medication. Telecom Assistant Required: No Accompanied by: Self / Same As Patient Allergies REAGAN Inhibitors Allergy (Mild, Verified 07/28/24 13:03) Rash bupropion [From Wellbutrin] Allergy (Unknown, Verified 07/28/24 13:03) Unknown simvastatin Adverse Reaction (Intermediate, Verified 07/28/24 13:03) myalgia Medication List - Last Reconciled 06/26/24 by Darien Gómez MD albuterol sulfate 90 mcg/actuation 1 puff inhalation QID PRN 30 days blood sugar diagnostic As directed calcium citrate 500 mg PO DAILY cetirizine 10 mg PO DAILY cyclobenzaprine 5 mg PO Q8H PRN 5 days fluticasone propion-salmeterol 250-50 mcg/dose (Wixela Inhub) 1 ea inhalation BID fluticasone propionate 50 mcg/actuation 1 spray intranasal BID PRN insulin detemir U-100 (Levemir U-100 Insulin) 20 units subcut QPM insulin syringe-needle U-100 As directed lancets As directed loperamide (Imodium A-D) 2 mg PO Q6H PRN losartan-hydrochlorothiazide 50-12.5 mg 1 tab PO DAILY metformin 1,000 mg PO BID metoprolol succinate ER 50 mg PO QAM montelukast 10 mg PO DAILY omeprazole 20 mg PO DAILY rosuvastatin 5 mg PO DAILY syringe with needle (BD Luer-Stefan Syringe) As directed weekly syringe with needle, safety Qweekly tadalafil 10 mg PO DAILY 90 days tamsulosin 0.4 mg PO DAILY 90 days testosterone 1 packet transdermal DAILY 30 days testosterone cypionate (Depo-Testosterone) 200 mg IM Q2W trazodone 100 mg PO BEDTIME HPI Comments Details: Philip is a pleasant male. He is a patient of Dr. Lu. He is seen for the following urologic issues - hypogonadism in setting of diabetes - postvoid dribbling - BPH - erectile dysfunction Telemedicine Evaluation 15 min Consultation [employer] Fátima Video attempted Six month review Injecting incorrectly Would like to try a different form Can do testosterone gel Refill was provided for tamsulosin and Cialis Erectile dysfunction Cialis 10 mg daily - at 20 mg on demand Lower urinary tract symptoms - terazosin 10 mg T at appropriate level Happy with current results Does have some urinary weakness. Had previous procedure Hypogonadism Longstanding On testosterone replacement Current therapy 0.5 cc intramuscular weekly - was stable for many years Laboratories - 02/17 T 1300, Hct 48 - 04/20 761 4.8 45. 10/22 T 722 P 3.4, 04/21 555 3.5 43, 10/23 460 2.8 44 HBA1c 7.7, 02/20 920 3.7 HBA1c 7.0 Continue with current dosing, may need to be decreased Erectile dysfunction Longstanding Does respond to Cialis 10 mg daily BPH Postvoid dribbling Current therapy 10 mg terazosin Previous prostate procedure Previously used imipramine p.o. b.i.d. Insulin-dependent diabetic PSA 10/21 3.6 Bilateral inguinal lymphadenopathy Palpable high inguinal region bilateral 04/19 CT scan mildly thickened bladder, right 2 cm inguinal lymph node [facility] Medical History COVID-19 COPD (chronic obstructive pulmonary disease) Arthritis Hyperlipidemia Diabetes GERD (gastroesophageal reflux disease) Diverticulosis Tubular adenoma Allergic rhinitis Hypogonadism in male Urge incontinence Hypogonadism male BPH w/o urinary obs/LUTS Asthma High cholesterol IDDM (insulin dependent diabetes mellitus) HTN (hypertension) Surgical History History of esophagogastroduodenoscopy (EGD) H/O colonoscopy History of prostate surgery Social History Are you a primary acute care physical therapist to a significant other at home: No Do you presently have visiting nurse or other home services: No Patient Tobacco Use Status: Former Tobacco user Tobacco use type: Cigarette Years Smoked: 30 Advance Directives Date on File: 06/30/20 Review of Systems Const All systems reviewed & are unremarkable except as noted in HPI and below Reports no additional complaints Resp Reports no additional complaints GI Reports no additional complaints Reports as per HPI Musc Reports no additional complaints Physical Exam Telemedicine evaluation Appropriate responses Regular breathing rate and rhythm HEENT Head: Yes normal to inspection Ears: hearing grossly normal bilaterally Eyes General: appearance normal, both eyes and all related structures Neck Neck: Yes normal visual inspection Chest Chest palpation & inspection: normal inspection of the chest Resp Effort & Inspection: normal respiratory effort and able to speak in complete sentences Telehealth Telehealth Location of provider rendering services: practice address Location of patient: address on file Patient Identification confirmed using: Name, : Yes Telehealth method: video Patient verbally consented to treatment: Yes Patient verbally consented to billing insurance company: Yes Patient informed of any privacy concerns related to visit: Yes Assessment & Plan Assessment & Plan (1) Hypogonadism in male: Code(s): E29.1 - Testicular hypofunction Category: Medical (2) Erectile dysfunction: Code(s): N52.9 - Male erectile dysfunction, unspecified Category: Medical (3) BPH w/o urinary obs/LUTS: Code(s): N40.0 - Benign prostatic hyperplasia without lower urinary tract symptoms Category: Medical Plan Testosterone gel Continue tadalafil and tamsulosin Orders: Orders Prostate Specific Antigen 6 Months E29.1 - Testicular hypofunction Testosterone, Total 6 Months E29.1 - Testicular hypofunction Complete Blood Count no Diff 6 Months E29.1 - Testicular hypofunction Medications: New testosterone Apply to shoulder and rub in until dry 1 packet transdermal DAILY 150 grams 5RF 30 days E29.1 - Testicular hypofunction Changed From tamsulosin 0.4 mg PO DAILY E29.1 - Testicular hypofunction To tamsulosin 0.4 mg PO DAILY 90 caps 1RF 90 days E29.1 - Testicular hypofunction From tadalafil 10 mg PO DAILY E29.1 - Testicular hypofunction To tadalafil 10 mg PO DAILY 90 tabs 1RF 90 days E29.1 - Testicular hypofunction Coding Level of Care Code Tele Est Pt Level 4 (81995) Diagnoses Hypogonadism in male E29.1 Erectile dysfunction N52.9 BPH w/o urinary obs/LUTS N40.0
--- OUTSIDE RECORDS SUMMARY | 2024-06-26 14:18 | XMS_ITS ---
Author Organization [facility] Address [address] [place] [address] Care Team Providers Care Globe Changer Name Role Phone Alfredo Lu MD Primary Care Provider Unavailab Carrillo Mcdowell Unavailable [phone] REASON FOR VISIT screening colon PROBLEMS Problem Type ICD Code Onset Dates Problem Status W/U Status Risk SNOMED Code Notes Problem Diverticulosis of large intestine without perforation or abscess without bleeding (K57.30) Active confirmed Diverticul ar disease of colon ([id number]) Encounters Encounter Location Date Provider Diagnosis [facility] [address], [place] [id number] 05/29/2024 Carrillo Zuluaga Colon cancer scree ino Z12.11 ; Colon polyps K63.5 ; Diverticulosis of large intestine without perforation or abscess without bleeding K57.30 and Other hemorrhoids K64.8 ASSESSMENTS Encounter Date Diagnosis Assessment Notes Treatment Notes Treatment Clinical Notes 05/29/2024 Colon cancer screening (ICD-10 - Z12.11) 05/29/2024 Colon polyps (ICD-10 - K63.5) 05/29/2024 Diverticulosis of large intestine without perforation or abscess without bleeding (ICD-10 - K57.30) 05/29/2024 Other hemorrhoids (ICD-10 - K64.8) PLAN OF TREATMENT No Information
--- OUTSIDE RECORDS SUMMARY | 2024-06-26 14:18 | XMS_ITS ---
Author Organization [facility] Address [address] [place] [address] Care Team Providers Care Consulting Solution Director Name Role Phone Alfredo Lu MD Primary Care Provider Unavailab Carrillo Mcdowell [phone] REASON FOR VISIT please send colon prep MEDICATIONS Medication SIG (Take, Route, Frequency, Duration) Notes Start Date End Date Status Imodium A-D 2 MG 1 or 2 Orally Every 4 to 6 hours as needed for diarrhea for 30 days 02/13/2024 Active Dulcolax (colon prep) 5 MG take at 3:00 p.m and 7:00p.m. Orally two tablets twice a day for one day for 1 day 02/13/2024 Active MiraLax (colon prep) 17 GM/SCOOP 1 238 Gm bottle mixed with Gatorade or Crystal Light Orally begin at 5:00 p.m. the day before the procedure for 1 day 02/13/2024 Active Encounters Encounter Location Date Provider Diagnosis [facility] [address] [place] [phone] 02/13/2024 Carrillo Zuluaga PLAN OF TREATMENT Medication Medication Name Sig Start Date Stop Date Notes Imodium A-D 2 MG 1 or 2 Orally Every 4 to 6 hours as needed for diarrhea for 30 days 02/13/2024 Dulcolax (colon prep) 5 MG take at 3:00 p.m and 7:00p.m. Orally two tablets twice a day for one day for 1 day 02/13/2024 MiraLax (colon prep) 17 GM/SCOOP 1 238 Gm bottle mixed with Gatorade or Crystal Light Orally begin at 5:00 p.m. the day before the procedure for 1 day 02/13/2024
--- OUTSIDE RECORDS SUMMARY | 2024-06-26 14:19 | XMS_ITS ---
Author Organization [facility] Address [address] [place] [address] Care Team Providers Care Compressor Mechanic Bus Name Role Phone Alfredo Lu MD Primary Care Provider UnavailCarrillo Alberts Unavailable [phone] ALLERGIES No Known Allergies REASON FOR VISIT Patient presents today for a COLON SCREENING MEDICATIONS Medication SIG (Take, Route, Frequency, Duration) Notes Start Date End Date Status Loratadine 10 MG TAKE 1 TABLET BY DONNA TH EVERY DAY Oral Once a day Active Losartan Potassium-HCTZ 50-12.5 MG TAKE 1 TABLET BY MOUTH EVERY DAY Oral Once a day Active Testosterone Cypionate 200 MG/ML (Schedule III Drug) INJECT 1 ML EVERY 2 WEEKS Intramuscular for 30 Active Flovent HFA 110 MCG/ACT INHALE 2 PUFFS I NTO THE LUNGS TWICE DAILY Inhalation for 90 Active Cetirizine HCl 10 MG TAKE 1 TABLET BY MO UTH EVERY DAY Oral Once a day Active Tamsulosin HCl 0.4 MG 1 capsule Orally O nce a day Active Montelukast Sodium 10 MG 1 tablet Orally Once a day Active traZODone HCl 100 MG 1 tablet at bedtime as needed Orally Once a day Active metFORMIN HCl 1000 MG 1 tablet with a me al Orally twice a day Active Omeprazole 20 MG 1 capsule Orally Onc e a day Active Calcium Citrate 500 MG 1 tablet Orally O nce a day Active Imodium A-D 2 MG 1 capsule as needed Orally Four times a day Active Glimepiride 2 MG 1 tablet with breakf ast or the first main meal of the day Orally Once a day Not-Ta vesta Lantus 100 UNIT/ML INJECT 20 UNIT SUBCUTANEOUSLY EVERY EVENING AT 7 PM Subcutaneous for 90 Not-Taking Albuterol Sulfate HFA 108 (90 Base) MCG/ACT Inhalation for 30 A ctive Levemir 100 UNIT/ML Subcutaneous for 50 Active Rosuvastatin Calcium 5 MG Oral for 90 Active Ventolin HFA 108 (90 Base) MCG/ACT Inhalation for 30 Active Fluticasone Propionate 50 MCG/ACT ONE SPRAY EACH NOSTRIL NASALLY TWICE A DAY Nasal Twice a day Active VITAL SIGNS BMI 24.66 kg/m2 02/13/2024 Blood pressure systolic 00 mm Hg 02/13/20 24 Blood pressure diastolic 00 mm Hg 024 Height 67.75 in 02/13/2024 Weight 161 lbs 02/13/2024 Encounters Encounter Location Date Provider Diagnosis [facility] [address] [place] [address] 02/13/2024 Carrillo Zuluaga Gastroesophageal ref lux disease without esophagitis K21.9 ; History of adenomatous polyp of colon Z86.010 and Encounter for screening for malignant neoplasm of colon Z12.11 ASSESSMENTS Encounter Date Diagnosis Assessment Notes Treatment Notes Treatment Clinical Notes 02/13/2024 Gastroesophageal reflux disease without esophagitis (ICD-10 - K21.9) Continue the daily omeprazole 02/13/2024 History of adenomato us polyp of colon (ICD-10 - Z86.010) 02/13/2024 Encounter for screening for malignant neoplasm of colon (ICD-10 - Z12.11) Do not take any Metformin the day before nor on the day of the colonoscopy Take only 1/2 of your usual Insulin the night before the colonoscopy PLAN OF TREATMENT Treatment Notes Assessment Notes Gastroesophageal reflux dise ase without esophagitis Continue the daily omeprazole Encounter for screening for malignant neoplasm of colon Do not take any Metformin the day before nor on the day of the colonoscopy Take only 1/2 of your usual Insulin the night before the colonoscopy Future Test Test Name Order Date COLONOSCOPY 02/13/2024 Next Appt Details Follow Up: prn, Reason: Progress Notes * Examination Category Sub-Category Detail Notes General Examination GENERAL APPEARANCE: pleasant , well nourished, well developed, in no acute distress EYES: sclera non-icteric NECK/THYROID: no cervical lymphade nopathy, neck supple HEART: S1, S2 normal LUNGS: clear to auscultatio n bilaterally ABDOMEN: normal bowel sounds, no guarding or rigidity, no hepatosplenomegaly, no masses palpable, soft, nontender, nondistended. NEUROLOGIC: alert and oriented SKIN: nonjaundiced, no spi andreas angiomata. EXTREMITIES: no edema ORAL CAVITY: mucosa moist
--- OUTSIDE RECORDS SUMMARY | 2024-06-26 14:19 | XMS_ITS | Patient Health Record ---
Author Organization [facility] Address [address] [place] [address] Care Team Providers Care Computer Hardware Designer Name Role Phone Aly SANZ, Alfredo Primary Care Provider Carrillo Chaves [phone] ALLERGIES No Known Allergies RESULTS Component Value Reference Range Notes Pathology (Not yet reviewed by provider) Interpretation: Performing Lab:[facility], [address] [place] [phone] Notes/Report: Glucose, Whole Blood Reviewed date:05/29/2024 04:34:37 PM Interpretation: Performing Lab:[facility], [address] [place] [phone] Notes/Report: Glucose, Whole Blood 151 60-115 mg/dL METER # : [id number] REASON FOR REFERRAL No Information MEDICATIONS Medication SIG (Take, Route, Frequency, Duration) Notes Start Date End Date Status Lantus 100 UNIT/ML INJECT 20 UNIT SUBCUTANEOUSLY EVERY EVENING AT 7 PM Subcutaneous for 90 Not-Taking Albuterol Sulfate HFA 108 (90 Base) MCG/ACT Inhalation for 30 A ctive Levemir 100 UNIT/ML Subcutaneous for 50 Active Rosuvastatin Calcium 5 MG Oral for 90 Active Loratadine 10 MG TAKE 1 TABLET BY DONNA EVERY DAY Oral Once a day Active Losartan Potassium-HCTZ 50-12.5 MG TAKE 1 TABLET BY MOUTH EVERY DAY Oral Once a day Active Testosterone Cypionate 200 MG/ML (Schedule III Drug) INJECT 1 ML EVERY 2 WEEKS Intramuscular for 30 Active Glimepiride 2 MG 1 tablet with breakf ast or the first main meal of the day Orally Once a day Not-Ta vesta Omeprazole 20 MG 1 capsule Orally Onc e a day Active Imodium A-D 2 MG 1 or 2 Orally Every 4 to 6 hours as needed for diarrhea for 30 days 02/13/2024 Active Ventolin HFA 108 (90 Base) MCG/ACT Inhalation for 30 Active Dulcolax (colon prep) 5 MG take at 3:00 p.m and 7:00p.m. Orally two tablets twice a day for one day for 1 day 02/13/2024 Active Fluticasone Propionate 50 MCG/ACT ONE SPRAY EACH NOSTRIL NASALLY TWICE A DAY Nasal Twice a day Active MiraLax (colon prep) 17 GM/SCOOP 1 238 Gm bottle mixed with Gatorade or Crystal Light Orally begin at 5:00 p.m. the day before the procedure for 1 day 02/13/2024 Active Flovent HFA 110 MCG/ACT INHALE 2 PUFFS I NTO THE LUNGS TWICE DAILY Inhalation for 90 Active Cetirizine HCl 10 MG TAKE 1 TABLET BY [facility] EVERY DAY Oral Once a day Active Calcium Citrate 500 MG 1 tablet Orally O nce a day Active Imodium A-D 2 MG 1 capsule as needed Orally Four times a day Active Tamsulosin HCl 0.4 MG 1 capsule Orally O nce a day Active Montelukast Sodium 10 MG 1 tablet Orally Once a day Active traZODone HCl 100 MG 1 tablet at bedtime as needed Orally Once a day Active metFORMIN HCl 1000 MG 1 tablet with a me al Orally twice a day Active IMMUNIZATIONS Vaccine Route Administration Date Status Comme nts Influenza Unknown 06/12/2018 Administered SOCIAL HISTORY Sex Assigned At : Social History Observation Description Sex Assigned At Unknown PROBLEMS Problem Type ICD Code Onset Dates Problem Status W/U Status Risk SNOMED Code Notes Problem Encounter for screening for malignant neoplasm of colon (Z12.11) Active confirmed 844706969 Problem History of adenomatous polyp of colon (Z86.010) Active confirmed 752379730 Problem Diverticulosis of large intestine without perforation or abscess without bleeding (K57.30) Active confirmed Diverticul ar disease of colon (945000279) Problem Gastroesophageal reflux disease without esophagitis (K21.9) Active confirmed 424185821 VITAL SIGNS Blood pressure diastolic 00 mm Hg 02/13/2024 Height 67.75 in 02/13/2024 Blood pressure systolic 00 mm Hg 02/13/2024 Weight 161 lbs 02/13/2024 BMI 24.66 kg/m2 02/13/2024 Encounters Encounter Location Date Provider Diagnosis [facility] [place] [address] [place], [place] [phone] 05/29/2024 Carrillo Zuluaga Colon cancer screeni ng Z12.11 ; Colon polyps K63.5 ; Diverticulosis of large intestine without perforation or abscess without bleeding K57.30 and Other hemorrhoids K64.8 [facility] [address] [place] [address] 02/13/2024 Carrillo Zuluaga Gastroesophageal ref lux disease without esophagitis K21.9 ; History of adenomatous polyp of colon Z86.010 and Encounter for screening for malignant neoplasm of colon Z12.11 [facility] [address] [place] [address] 01/16/2024 Carrillo Zuluaga [facility] [address] [place] [address] 02/13/2024 Carrillo Zuluaga ASSESSMENTS Encounter Date Diagnosis Assessment Notes Treatment Notes Treatment Clinical Notes 05/29/2024 Colon cancer screeni ng (ICD-10 - Z12.11) 05/29/2024 Colon polyps (ICD-10 - K63.5) 02/13/2024 History of adenomato us polyp of colon (ICD-10 - Z86.010) 02/13/2024 Gastroesophageal reflux disease without esophagitis (ICD-10 - K21.9) Continue the daily omeprazole 05/29/2024 Diverticulosis of large intestine without perforation or abscess without bleeding (ICD-10 - K57.30) 02/13/2024 Encounter for screening for malignant neoplasm of colon (ICD-10 - Z12.11) Do not take any Metformin the day before nor on the day of the colonoscopy Take only 1/2 of your usual Insulin the night before the colonoscopy 05/29/2024 Other hemorrhoids (ICD-10 - K64.8) PLAN OF TREATMENT Pending Test Test Name Order Date Pathology 05/29/2024 Future Test Test Name Order Date UPPER GI ENDOSCOPY 06/24/2013 COLONOSCOPY 11/12/2018 COLONOSCOPY 02/13/2024 Insurance Providers Payer Name Payer Address Payer Phone Subscriber Number Group Number Insured Name Patient Relationship to Insured Coverage Start Date Coverage End Date [facility] [address] Attn Claims MARIS Good [id number] ESEQUIEL HEALY Self - patient is the insured MEDICAL (GENERAL) HISTORY Medical History History ICD Code Tubular adenoma removed in --had a neg colonoscopy in 09/2011 except for diverticulosis and internal hemorrhoids Gastroesophageal reflux--EGD in 06/2006-small HH, gastritis with H.pylori-Rx'd with PPI, Biaxin, Amoxicillen--EGD in 06/2013--small HH-no esophagitis, no Noel's Asthma IDDM since age 27 Hyperlipidemia Arthritis Denies [place], stroke, and renal disease Anxiety Hypertension Negative screening colonoscopy in November of 2018. Surgical History Surgery Date(Month/Year) Prostate surgery for BPH
== END 2024-06-26 15:09 | disposition home or self-care (01) ==
LOC: HO.HUSH 14:17
PROVIDERS: PCP Family Medicine; Visit Provider Urology
DX: E29.1 Testicular hypofunction (principal); N52.9 Male erectile dysfunction, unspecified; N40.0 Benign prostatic hyperplasia without lower urinary tract symptoms
CPT/HCPCS: 99214

== ENCOUNTER → 2024-06-26 14:17 | Outpatient (BNVA) | payer OTHER, SELFPAY | PROVIDERS: PCP Family Medicine; Visit Provider Urology ==

== ENCOUNTER 2024-06-29 08:27 | Day surgery (SDC) | payer OTHER, SELFPAY ==
[2024-06-25 11:15] VITALS: BMI 27.1
--- NOTE | 2024-06-26 12:23 | HO.ANESPROP2 ---
Documented by User: Kiera Garvin NP 06/26/24 12:34 HPI - Anesthesia Eval Consult details Narrative: 68yo M for Cystoscopy Pulmo optimized per T/C with JANE Mejia [facility] Active Problems Active Problems: All Active Problems Cough (Acute) Erectile dysfunction (Acute) Inguinal lymphadenopathy (Acute) Asthma-COPD overlap syndrome (Acute) Environmental allergies (Acute) Severe persistent allergic asthma (Acute) BPH w/o urinary obs/LUTS (Acute) Allergic rhinitis (Acute) Hypogonadism in male (Acute) Past Medical History Medical History COVID-19 COPD (chronic obstructive pulmonary disease) Arthritis Hyperlipidemia Diabetes GERD (gastroesophageal reflux disease) Diverticulosis Tubular adenoma Allergic rhinitis Hypogonadism in male Urge incontinence Hypogonadism male BPH w/o urinary obs/LUTS Asthma High cholesterol IDDM (insulin dependent diabetes mellitus) HTN (hypertension) Family History Family history of problems with anesthesia: No Surgical History Surgical History History of esophagogastroduodenoscopy (EGD) H/O colonoscopy History of prostate surgery History of Problems with Anesthesia: No Social History Social History Are you a primary memory care program director to a significant other at home: No Do you presently have visiting nurse or other home services: No Patient Tobacco Use Status: Former Tobacco user Tobacco use type: Cigarette Years Smoked: 30 Smoked in Last 30 Days: No Use of substances other than those prescribed or required for medical reasons: No Have you been hit, kicked, punched, or otherwise hurt by someone within the past year? If so, by whom?: No Are you DNR?: No Advance Directives: No Advance Directives Information Provided: Yes Advance Directives Date on File: 06/30/20 Recently lost weight without trying: No How much weight loss: Not applicable Eating poorly because of decreased appetite: No Nutrition screen score: 0 Nutrition Risks: No Nutritional Risk Poor oral hygiene: No Meds Allergies Allergy/AdvReac Type Severity Reaction Status Date / Time REAGAN Inhibitors Allergy Mild Rash Verified 06/26/24 14:20 bupropion [From Wellbutrin] Allergy Unknown Unknown Verified 06/26/24 14:20 simvastatin AdvReac Intermediate myalgia Verified 06/26/24 14:20 Home Medications ?Medication ?Instructions ?Recorded ?Confirmed ?Last Taken ?Type metformin 1,000 mg tablet 1,000 mg PO BID 08/19/20 06/29/24 06/28/24 History rosuvastatin 5 mg tablet 5 mg PO DAILY 08/19/20 06/29/24 Unknown History trazodone 100 mg tablet 100 mg PO BEDTIME 08/19/20 06/29/24 Unknown History blood sugar diagnostic #10 ea 10/11/20 06/26/24 Unknown History insulin syringe-needle U-100 0.5 #10 ea 10/11/20 06/26/24 Unknown History mL 31 gauge x 5/16 lancets 28 gauge #100 ea 10/11/20 06/26/24 Unknown History fluticasone propionate 50 1 spray intranasal BID PRN Allergy 10/24/23 06/29/24 06/29/24 History mcg/actuation nasal Symptoms spray,suspension calcium citrate 500 mg (2,376 mg) 500 mg PO DAILY 05/28/24 06/29/24 06/29/24 History effervescent tablet cetirizine 10 mg tablet 10 mg PO DAILY 05/28/24 06/29/24 06/29/24 History insulin detemir U-100 100 unit/mL 20 unit subcut QPM diabetes 05/28/24 06/29/24 06/28/24 19:00 History subcutaneous solution (Levemir mellitus 20 units U-100 Insulin) loperamide 2 mg capsule (Imodium 2 mg PO Q6H PRN Diarrhea 05/28/24 06/29/24 Unknown History A-D) losartan 50 mg-hydrochlorothiazide 1 tab PO DAILY 05/28/24 06/29/24 06/29/24 History 12.5 mg tablet omeprazole 20 mg capsule,delayed 20 mg PO DAILY 05/28/24 06/29/24 06/29/24 History release fluticasone 250 mcg-salmeterol 50 1 ea inhalation BID asthma 05/29/24 06/29/24 06/29/24 History mcg/dose blistr powdr for inhalation (Wixela Inhub) metoprolol succinate 50 mg 50 mg PO QAM 05/29/24 06/29/24 06/29/24 History tablet,extended release 24 hr montelukast 10 mg tablet 10 mg PO DAILY 06/25/24 06/29/24 06/29/24 History Exam Height,Weight and Vital Signs: Height 5 ft 6 in Weight 76.204 kg Pertinent Lab Results Pertinent Lab Results: Laboratory Tests 10/15/23 02/08/24 09:58 08:08 WBC 6.8 Hgb 14.6 Hct 44.3 Plt Count 261 Sodium 144 Potassium 4.4 Chloride 106 Carbon Dioxide 28 BUN 11 Creatinine 0.94 Narrative Narrative: XR chest 2V IMPRESSION: No acute cardiopulmonary findings. Assessment and Plan Assessment Anesthesia Assessment: Chart Reviewed Final Anesthetic Review Family History of Problems with Anesthesia: No History of Problems with Anesthesia: No Documented by User: Cee Truong MD 06/29/24 09:44 PMFSH Past Medical History Medical History COVID-19 COPD (chronic obstructive pulmonary disease) Arthritis Hyperlipidemia Diabetes GERD (gastroesophageal reflux disease) Diverticulosis Tubular adenoma Allergic rhinitis Hypogonadism in male Urge incontinence Hypogonadism male BPH w/o urinary obs/LUTS Asthma High cholesterol IDDM (insulin dependent diabetes mellitus) HTN (hypertension) Surgical History Surgical History History of esophagogastroduodenoscopy (EGD) H/O colonoscopy History of prostate surgery Social History Social History Are you a primary memory care program director to a significant other at home: No Do you presently have visiting nurse or other home services: No Patient Tobacco Use Status: Former Tobacco user Tobacco use type: Cigarette Years Smoked: 30 Smoked in Last 30 Days: No Use of substances other than those prescribed or required for medical reasons: No Have you been hit, kicked, punched, or otherwise hurt by someone within the past year? If so, by whom?: No Are you DNR?: No Advance Directives: No Advance Directives Information Provided: Yes Advance Directives Date on File: 06/30/20 Recently lost weight without trying: No How much weight loss: Not applicable Eating poorly because of decreased appetite: No Nutrition screen score: 0 Nutrition Risks: No Nutritional Risk Poor oral hygiene: No Meds Allergies Allergy/AdvReac Type Severity Reaction Status Date / Time REAGAN Inhibitors Allergy Mild Rash Verified 06/26/24 14:20 bupropion [From Wellbutrin] Allergy Unknown Unknown Verified 06/26/24 14:20 simvastatin AdvReac Intermediate myalgia Verified 06/26/24 14:20 Home Medications ?Medication ?Instructions ?Recorded ?Confirmed ?Last Taken ?Type metformin 1,000 mg tablet 1,000 mg PO BID 08/19/20 06/29/24 06/28/24 History rosuvastatin 5 mg tablet 5 mg PO DAILY 08/19/20 06/29/24 Unknown History trazodone 100 mg tablet 100 mg PO BEDTIME 08/19/20 06/29/24 Unknown History blood sugar diagnostic #10 ea 10/11/20 06/26/24 Unknown History insulin syringe-needle U-100 0.5 #10 ea 10/11/20 06/26/24 Unknown History mL 31 gauge x 5/16 lancets 28 gauge #100 ea 10/11/20 06/26/24 Unknown History fluticasone propionate 50 1 spray intranasal BID PRN Allergy 10/24/23 06/29/24 06/29/24 History mcg/actuation nasal Symptoms spray,suspension calcium citrate 500 mg (2,376 mg) 500 mg PO DAILY 05/28/24 06/29/24 06/29/24 History effervescent tablet cetirizine 10 mg tablet 10 mg PO DAILY 05/28/24 06/29/24 06/29/24 History insulin detemir U-100 100 unit/mL 20 unit subcut QPM diabetes 05/28/24 06/29/24 06/28/24 19:00 History subcutaneous solution (Levemir mellitus 20 units U-100 Insulin) loperamide 2 mg capsule (Imodium 2 mg PO Q6H PRN Diarrhea 05/28/24 06/29/24 Unknown History A-D) losartan 50 mg-hydrochlorothiazide 1 tab PO DAILY 05/28/24 06/29/24 06/29/24 History 12.5 mg tablet omeprazole 20 mg capsule,delayed 20 mg PO DAILY 05/28/24 06/29/24 06/29/24 History release fluticasone 250 mcg-salmeterol 50 1 ea inhalation BID asthma 05/29/24 06/29/24 06/29/24 History mcg/dose blistr powdr for inhalation (Wixela Inhub) metoprolol succinate 50 mg 50 mg PO QAM 05/29/24 06/29/24 06/29/24 History tablet,extended release 24 hr montelukast 10 mg tablet 10 mg PO DAILY 06/25/24 06/29/24 06/29/24 History Exam Airway Mallampati Class: II TM Dist: >3cm Neck ROM: Full Heart: rrr Lungs: wheezing Assessment and Plan Assessment Anesthesia Assessment: Anesthesia Plan Discussed Final Anesthetic Review NPO: Yes ASA Class: III (resp Yx started) Final Preanesthetic Review: No Changes in Pt Med Stat, Meds/Allgs Chart Reviewed, Consent Obtained/Reviewed and Anes Risks/Benef Reviewed Patient Risk: Intermediate Procedure Risk: Low Anesthetic Plan Anesthetic Plan: GA Disposition: Standard PACU
--- OUTSIDE RECORDS SUMMARY | 2024-06-29 08:30 | XMS_ITS ---
Author Organization [facility] Address [address] [place] [address] Care Team Providers Care Signal Operator Name Role Phone Alfredo Lu MD Primary Care Provider Unavailab Carrillo Mcdowell [phone] REASON FOR VISIT please send colon prep [...] Active Encounters Encounter Location Date Provider Diagnosis [facility] [address] [place] [address] 02/13/2024 Carrillo Zuluaga PLAN OF TREATMENT Medication [...]
--- OUTSIDE RECORDS SUMMARY | 2024-06-29 08:30 | XMS_ITS ---
Author Organization [facility] Address [address] [place] [address] Care Team Providers Care Knowledge Management Advisor Name Role Phone Alfredo Lu MD Primary Care Provider UnavailCarrillo Alberts Unavailable [phone] ALLERGIES No Known Allergies REASON FOR VISIT [...] 02/13/2024 Encounters Encounter Location Date Provider Diagnosis [facility] [address] [place] [address] 02/13/2024 Carrillo Zuluaga Gastroesophageal ref lux disease [...]
--- OUTSIDE RECORDS SUMMARY | 2024-06-29 08:30 | XMS_ITS ---
Author Organization [facility] Address [address] [place] [address] Care Team Providers Care Continuum Of Care Manager Name Role Phone Alfredo Lu MD Primary Care Provider Unavailab Carrillo Mcdowell Unavailable [phone] REASON FOR VISIT screening colon PROBLEMS Problem Type ICD Code Onset Dates Problem Status W/U Status Risk SNOMED Code Notes Problem Diverticulosis of large intestine without perforation or abscess without bleeding (K57.30) Active confirmed Diverticul ar disease of colon (930006997) Encounters Encounter Location Date Provider Diagnosis [facility] [place] [address] [place], [place] [id number] 05/29/2024 Carrillo Zuluaga Colon cancer scree ino [...]
--- OUTSIDE RECORDS SUMMARY | 2024-06-29 08:30 | XMS_ITS | Patient Health Record ---
Author Organization [facility] Address [address] [place] [address] Care Team Providers Care Lard Maker Name Role Phone Aly SANZ, Alfredo Primary Care Provider Carrillo Chaves [phone] ALLERGIES No Known Allergies RESULTS Component Value Reference Range Notes Pathology (Not yet reviewed by provider) Interpretation: Performing Lab:[facility], [address] [place] [phone] Notes/Report: Glucose, Whole Blood Reviewed date:05/29/2024 04:34:37 PM Interpretation: Performing Lab:[facility], [address] [place] [phone] Notes/Report: Glucose, Whole Blood 151 60-115 mg/dL METER # : [id number] REASON FOR REFERRAL No Information MEDICATIONS Medication [...] HCl 10 MG TAKE 1 TABLET BY [facility] EVERY DAY Oral Once a day Active [...] malignant neoplasm of colon (Z12.11) Active confirmed 368515073 Problem History of adenomatous polyp of colon (Z86.010) Active confirmed 467646171 Problem Diverticulosis of large intestine without perforation or abscess without bleeding (K57.30) Active confirmed Diverticul ar disease of colon (063063227) Problem Gastroesophageal reflux disease without esophagitis (K21.9) Active confirmed 099208061 VITAL SIGNS Blood pressure diastolic 00 mm Hg 02/13/2024 Height 67.75 in 02/13/2024 Blood pressure systolic 00 mm Hg 02/13/2024 Weight 161 lbs 02/13/2024 BMI 24.66 kg/m2 02/13/2024 Encounters Encounter Location Date Provider Diagnosis [facility] [place] [address] [place], [place] [phone] 05/29/2024 Carrillo Zuluaga Colon cancer screeni ng Z12.11 ; Colon polyps K63.5 ; Diverticulosis of large intestine without perforation or abscess without bleeding K57.30 and Other hemorrhoids K64.8 [facility] [address] [place] [address] 02/13/2024 Carrillo Zuluaga Gastroesophageal ref lux disease without esophagitis K21.9 ; History of adenomatous polyp of colon Z86.010 and Encounter for screening for malignant neoplasm of colon Z12.11 [facility] [address] [place] [phone] 01/16/2024 Carrillo Zuluaga [facility] [address] [place] [address] 02/13/2024 Carrillo Zuluaga ASSESSMENTS Encounter Date Diagnosis [...] Insured Coverage Start Date Coverage End Date [facility] [address] Attn Claims MARIS Good [id number] ESEQUIEL HEALY Self - patient is the insured MEDICAL (GENERAL) HISTORY Medical History History ICD Code Tubular adenoma removed in --had a neg colonoscopy in 09/2011 except for diverticulosis and internal hemorrhoids Gastroesophageal reflux--EGD in 06/2006-small HH, gastritis with H.pylori-Rx'd with PPI, Biaxin, Amoxicillen--EGD in 06/2013--small HH-no esophagitis, no Noel's Asthma IDDM since age 27 Hyperlipidemia Arthritis Denies [place], stroke, and renal disease Anxiety Hypertension Negative screening colonoscopy in November of 2018. Surgical History Surgery Date(Month/Year) Prostate surgery for BPH
[2024-06-29 09:26] VITALS: BP 143/60; PULSE 64; RESP 16; TEMP 36.3; O2SAT 97; BMI 28.4
[2024-06-29 09:34] LABS: Glucose, Whole Blood 165 mg/dL (60-115)
[2024-06-29] MEDS: Albuterol Sulfate (0.083%) 2.5 MG/3 ML VIAL.NEB INHALE (09:34)
[2024-06-29 09:36] VITALS: PULSE 61; RESP 15; O2SAT 100
[2024-06-29] MEDS: levoFLOXacin 500 MG TABLET PO (09:41)
[2024-06-29] MEDS: Lactated Ringers 1,000 ML 100 ML IVCONT (09:46)
--- NOTE | 2024-06-29 10:01 | MHC.SHP ---
Pre-Procedural Eval Section A - 24 Hr Update-Section A only Date of Service: 06/29/24 The patient is an INPATIENT: No Changes since office visit: No Cold of Flu in the past 2 weeks, No New Medical Problems, No Changes in Medication and No Patient answered all questions The patient has been examined within 24 hours of the surgical procedure. The History & Physical has been completed within 30 days and I have reviewed it.: Yes Section B - Complete if H&P > 30 days Chief Complaint: Poor urinary stream Allergies: Allergies Allergy/AdvReac Type Severity Reaction Status Date / Time REAGAN Inhibitors Allergy Mild Rash Verified 06/26/24 14:20 bupropion [From Wellbutrin] Allergy Unknown Unknown Verified 06/26/24 14:20 simvastatin AdvReac Intermediate myalgia Verified 06/26/24 14:20 Plan Diagnosis/Plan: Unchanged (Prior prostate procedure here for cystoscopy) I have reviewed the history and physical and performed a pertinent physical examination on my patient. No changes have occurred unless specified. Time Spent With Patient Time: Total time managing care of this patient today ____ minutes.
[2024-06-29 10:22] VITALS: BP 129/61; PULSE 72; RESP 18; TEMP 36.4; O2SAT 94
--- NOTE | 2024-06-29 10:28 | W.PM.OPN ---
Operative Note Operative Note Date of Service: 06/29/24 Narrative: PreOperative Diagnosis: Bladder outlet obstruction recurrent Post Operative Diagnosis: No evidence of recurrence Procedure: Cystoscopy Surgeon: Dr Darien Gómez Anesthesia: Sedation Indications for procedure: Unable to have cystoscopy in office so plan for operating room Procedure: After informed consent was verified the patient was brought to the operating room and placed in a supine position. Anesthesia was administered per protocol. The patient was prepped and draped in a sterile fashion. Safety pause time-out was performed. Antibiotics being given. Cystoscopy performed using a disposable Urovue digital 16 Hebrew cystoscope. Meatus circumcised Urethra anterior posterior urethra normal Prostatic Urethra adequate TURP defect Bladder examination with retroflexion of cystoscope Bladder Orifices normal shape and position Bladder Capacity normal Trabeculations grade 2 Cellule Formation Diverticulum Formation Mucosal Erythema Bladder Tumor Pathology: [] Drains: []
[2024-06-29 10:37] VITALS: BP 135/72; PULSE 69; RESP 16; O2SAT 96
[2024-06-29 10:52] VITALS: BP 139/61; PULSE 61; RESP 16; TEMP 36.3; O2SAT 96
== END 2024-06-29 11:57 | disposition home or self-care (01) ==
PROVIDERS: PCP Family Medicine; Visit Provider Urology
PROC: 0TJB8ZZ Inspection of Bladder, Via Natural or Artificial Opening Endoscopic (ICD-10-PCS; CPT 52000; principal; 2024-06-29 11:00)
DX: N40.1 Benign prostatic hyperplasia with lower urinary tract symptoms (principal); R39.12 Poor urinary stream; N32.89 Other specified disorders of bladder; N13.8 Other obstructive and reflux uropathy; N52.01 Erectile dysfunction due to arterial insufficiency; E29.1 Testicular hypofunction; I10 Essential (primary) hypertension; E11.9 Type 2 diabetes mellitus without complications; J44.9 Chronic obstructive pulmonary disease, unspecified; J30.9 Allergic rhinitis, unspecified; Z79.4 Long term (current) use of insulin; Z79.84 Long term (current) use of oral hypoglycemic drugs; Z79.1 Long term (current) use of non-steroidal anti-inflammatories (NSAID); Z79.51 Long term (current) use of inhaled steroids; Z79.899 Other long term (current) drug therapy; Z88.8 Allergy status to other drugs, medicaments and biological substances; Z98.890 Other specified postprocedural states; Z87.891 Personal history of nicotine dependence
CPT/HCPCS: 52000; 82947; 94640; J2704

== ENCOUNTER → 2024-06-29 08:27 | Outpatient (BNV) | payer OTHER, SELFPAY | PROVIDERS: PCP Family Medicine; Visit Provider Urology | DX: N32.0 Bladder-neck obstruction (principal) | CPT/HCPCS: 52000 ==

== ENCOUNTER 2024-07-15 09:35 | Outpatient (AMB) | payer OTHER, SELFPAY ==
[2024-07-15 09:42] VITALS: BP 130/58; PULSE 86; O2SAT 96; BMI 27.3
--- NOTE | 2024-07-15 09:42 | A.OFFVIS_ITS ---
Vital Signs 07/15/24 09:42 Height 5 ft 6 in Weight 169 lb BMI 27.3 BP 130/58 L Blood Pressure Location Lt brachial Position Sitting Pulse 86 Pulse Source Pulse Oximeter Pulse Oximetry (%) 96 Oxygen Delivery Method Room Air Intake Visit Reasons: copd Pipe Finisher Required: No Allergies REAGAN Inhibitors Allergy (Mild, Verified 07/15/24 09:47) Rash bupropion [From Wellbutrin] Allergy (Unknown, Verified 07/15/24 09:47) Unknown simvastatin Adverse Reaction (Intermediate, Verified 07/15/24 09:47) myalgia Medication List - Last Reconciled 07/15/24 by Cristóbal Gabriel MD albuterol sulfate 90 mcg/actuation 1 puff inhalation QID PRN 30 days blood sugar diagnostic As directed calcium citrate 500 mg PO DAILY cetirizine 10 mg PO DAILY cyclobenzaprine 5 mg PO Q8H PRN 5 days fluticasone propion-salmeterol 250-50 mcg/dose (Wixela Inhub) 1 ea inhalation BID fluticasone propionate 50 mcg/actuation 1 spray intranasal BID PRN insulin detemir U-100 (Levemir U-100 Insulin) 20 units subcut QPM insulin syringe-needle U-100 As directed lancets As directed loperamide (Imodium A-D) 2 mg PO Q6H PRN losartan-hydrochlorothiazide 50-12.5 mg 1 tab PO DAILY metformin 1,000 mg PO BID metoprolol succinate ER 50 mg PO QAM montelukast 10 mg PO DAILY omeprazole 20 mg PO DAILY rosuvastatin 5 mg PO DAILY syringe with needle (BD Luer-Stefan Syringe) As directed weekly syringe with needle, safety Qweekly tadalafil 10 mg PO DAILY 90 days tamsulosin 0.4 mg PO DAILY 90 days testosterone 1 packet transdermal DAILY 30 days trazodone 100 mg PO BEDTIME Do you need a note to return to daycare/school/sports/work: No HPI HPI copd: Details: This 68 years old very pleasant gentleman is here for his routine follow-up for allergic rhinitis and COPD. He has longstanding history of asthma/COPD which is well controlled with his meds. Also has longstanding history of allergic rhinitis. And in spite of maximum medical treatment he still has nasal congestion in the morning with lot of mucus. After steam inhalation in the morning he starts feeling better. Overall his condition is stable. [facility] Medical History COVID-19 COPD (chronic obstructive pulmonary disease) Arthritis Hyperlipidemia Diabetes GERD (gastroesophageal reflux disease) Diverticulosis Tubular adenoma Allergic rhinitis Hypogonadism in male Urge incontinence Hypogonadism male BPH w/o urinary obs/LUTS Asthma High cholesterol IDDM (insulin dependent diabetes mellitus) HTN (hypertension) Surgical History History of esophagogastroduodenoscopy (EGD) H/O colonoscopy History of prostate surgery Social History Are you a primary home care manager rn to a significant other at home: No Do you presently have visiting nurse or other home services: No Patient Tobacco Use Status: Former Tobacco user Tobacco use type: Cigarette Years Smoked: 30 Advance Directives Date on File: 06/30/20 Review of Systems Const All systems reviewed & are unremarkable except as noted in HPI and below Eyes Reports no additional complaints ENT Reports nasal congestion (Mild intermittent mostly in a.m.) Card Denies chest pain, Reports rapid heart rate (If he uses ProAir), Denies irregular heart rhythm and Denies leg edema Resp Reports as per HPI GI Reports heartburn (Being treated with omeprazole) Reports erectile dysfunction Musc Reports no additional complaints Skin/Breast Reports system reviewed and no additional complaints, except as documented Neuro Reports no additional complaints Psych Reports no additional complaints Physical Exam Const General: healthy appearing, comfortable, no acute distress, alert and awake Orientation/consciousness: patient oriented x3 HEENT Head: Yes normal to inspection General nose exam: No nasal polyps present, mucous membranes and turbinates abnormal (Moderately enlarged nasal turbinates), No nasal discharge present and Other nasal findings present (Moderate amount of nasal congestion is noted) Face and sinus: Yes sinuses nontender Mouth: oropharynx normal Throat: Yes posterior oropharynx normal Eyes General: appearance normal, both eyes and all related structures Neck Neck: Yes normal visual inspection, Yes no lymphadenopathy, Yes trachea midline and Yes no JVD Thyroid: Thyroid normal Chest Chest palpation & inspection: normal inspection of the chest, normal palpation of entire chest wall and no tenderness Resp Other: Percussion note resonant, breath sounds are distant with prolonged expiratory phase On auscultation lungs are clear , except a few scattered expiratory wheezes are present on both sides. Cardio Palpation: normal PMI Rate: regular rate Rhythm: regular rhythm Heart sounds: no gallops and no murmurs GI Palpation (GI): Soft to palpation, nontender, No hepatosplenomegaly present and no masses Auscultation: normal bowel sounds Back/Spine/Pelvis Thoracic/Lumbar Spine: thoracic and lumbar spine normal to inspection Skin General skin exam: no rashes or lesions noted Neuro General: patient oriented x3 and no focal motor deficits Cranial nerves: Yes CN's II-XII intact bilaterally Extrem General: Yes normal to inspection, Yes no clubbing, cyanosis or edema and Yes no calf tenderness Psych Appearance: grossly normal and well kempt Speech and movement: Normal speech and movement present Assessment & Plan Assessment & Plan (1) Severe persistent allergic asthma: Comment: CHRONIC ALLERGIC BRONCHIAL ASTHMA/COPD. RELATIVELY STABLE AT THIS TIME. CONTROLLED BETTER SINCE HE IS ON XOLAIR INJECTIONS Code(s): J45.50 - Severe persistent asthma, uncomplicated Category: Medical Plan: CONTINUE ON WIXELA 250-50 1 INHALATION B.I.D. AND USE ALBUTEROL HFA 2 PUFFS Q 6 HOURS P.R.N. (2) Asthma-COPD overlap syndrome: Comment: SEE ABOVE UNDER ALLERGIC ASTHMA Code(s): J44.9 - Chronic obstructive pulmonary disease, unspecified Category: Medical Plan: ABOVE UNDER ALLERGIC ASTHMA (3) Allergic rhinitis: Comment: CHRONIC ALLERGIC RHINITIS, PERENNIAL, SECONDARY TO MULTIPLE ENVIRONMENTAL ALLERGIES. CONTROLLED AT THIS TIME WELL BUT HE STILL CONTINUES TO HAVE SOME DEGREE OF NASAL CONGESTION Code(s): J30.9 - Allergic rhinitis, unspecified Category: Medical Plan: XOLAIR 300 MG SUBQ Q.4 WEEKS ( AT [facility] ) MONTELUKAST 10 MG DAILY. FLONASE-52 SPRAY EACH NOSTRIL DAILY CETIRIZINE 10 MG ONCE A DAY P.R.N. STEAM INHALATION THERAPY TWICE A DAY Coding Level of Care Code Est Pt Level 3 (84617) Diagnoses Severe persistent allergic asthma J45.50 Asthma-COPD overlap syndrome J44.9 Allergic rhinitis J30.9
== END 2024-07-15 09:54 | disposition home or self-care (01) ==
PROVIDERS: PCP Family Medicine; Visit Provider Internal Medicine
DX: J45.50 Severe persistent asthma, uncomplicated (principal); J44.9 Chronic obstructive pulmonary disease, unspecified; J30.9 Allergic rhinitis, unspecified
CPT/HCPCS: 99213

== ENCOUNTER → 2024-07-15 09:35 | Outpatient (BNVA) | payer OTHER, SELFPAY | PROVIDERS: PCP Family Medicine; Visit Provider Internal Medicine | DX: J44.9 Chronic obstructive pulmonary disease, unspecified (principal); J45.50 Severe persistent asthma, uncomplicated; J30.9 Allergic rhinitis, unspecified; Z87.891 Personal history of nicotine dependence; Z79.899 Other long term (current) drug therapy | CPT/HCPCS: 99212 ==

== ENCOUNTER 2024-07-22 08:27 | Outpatient (REF) | payer OTHER, SELFPAY ==
[2024-07-22 09:21] LABS: Estimated Average Glucose 177 mg/dL; Hemoglobin A1C 229.0207 umol/L; Hemoglobin A1c % 7.8 % (<6.0); Total Hemoglobin (HGBA1C) 3694.9726 umol/L
[2024-07-22 09:48] LABS: Creatinine Urine 79.72 mg/dL; Microalbum/Creatinine Ratio Ur 11.2 ug/mg cr (<30)
[2024-07-22 09:57] LABS: Alanine Aminotransferase 27 U/L (0-40); Anion Gap 12 (12-20); Aspartate Amino Transferase 31 U/L (5-37); Blood Urea Nitrogen 12 mg/dL (9-16); Carbon Dioxide 32 mmol/L (22-29); Chloride 106 mmol/L (96-108); Cholesterol 166 mg/dL (<200); Estimated Glomerular Filt Rate > 60; Glucose Fasting 156 mg/dL (60-99); HDL Cholesterol 40 mg/dL (>40); LDL Cholesterol Calculated 103 mg/dL (<100); Potassium 4.9 mmol/L (3.3-5.1); Sodium 145 mmol/L (135-145); Triglycerides 116 mg/dL (<150)
== END 2024-07-22 08:28 | disposition home or self-care (01) ==
LOC: HO.LAB 08:27
PROVIDERS: PCP Family Medicine; Visit Provider Family Medicine
DX: I10 Essential (primary) hypertension (principal); E11.9 Type 2 diabetes mellitus without complications; E78.00 Pure hypercholesterolemia, unspecified; Z79.899 Other long term (current) drug therapy
CPT/HCPCS: 36415; 80051; 80061; 82043; 82550; 82565; 82570; 82947; 83036; 84450; 84460; 84520

== ENCOUNTER 2024-07-28 13:18 | Outpatient (AMB) | payer OTHER, SELFPAY ==
--- NOTE | 2024-07-28 13:00 | MHC.OFFVIS ---
Intake Visit Reasons: OR Cysto- follow up Intake Note: Patient is present for OR CYSTO F/U Urology Medication:TAMSULOSIN, TESTOSTERONE,TADALAFIL Antibiotic Allergy:SIMVASTSTIN Blood Thinner:NONE Medical Records Administrator Required: No Allergies REAGAN Inhibitors Allergy (Mild, Verified 07/28/24 13:03) Rash bupropion [From Wellbutrin] Allergy (Unknown, Verified 07/28/24 13:03) Unknown simvastatin Adverse Reaction (Intermediate, Verified 07/28/24 13:03) myalgia HPI Comments Details: Philip is a pleasant male. He is a patient of Dr. Lu. He is seen for the following urologic issues - hypogonadism in setting of diabetes - postvoid dribbling - lower urinary tract symptoms - erectile dysfunction Telemedicine Evaluation 15 min Consultation Boxbe Fátima Video Cystoscopy in operating room showed open bladder neck Continues with tamsulosin and Cialis Would like to do 20 mg on demand Cialis as needed. He has permission to do this. Erectile dysfunction Cialis 10 mg daily - at 20 mg on demand Lower urinary tract symptoms - terazosin 10 mg Follow-up in November Hypogonadism Longstanding On testosterone replacement Current therapy 0.5 cc intramuscular weekly - was stable for many years Laboratories - 02/17 T 1300, Hct 48 - 04/20 761 4.8 45. 10/22 T 722 P 3.4, 04/21 555 3.5 43, 10/23 460 2.8 44 HBA1c 7.7, 02/20 920 3.7 HBA1c 7.0 Continue with current dosing, may need to be decreased Erectile dysfunction Longstanding Does respond to Cialis 10 mg daily Lower urinary tract symptoms Postvoid dribbling Current therapy 10 mg terazosin Previous prostate procedure Previously used imipramine p.o. b.i.d. Insulin-dependent diabetic PSA 10/21 3.6 Cystoscopy 06/23 open bladder neck Bilateral inguinal lymphadenopathy Palpable high inguinal region bilateral 04/19 CT scan mildly thickened bladder, right 2 cm inguinal lymph node [facility] Medical History COVID-19 COPD (chronic obstructive pulmonary disease) Arthritis Hyperlipidemia Diabetes GERD (gastroesophageal reflux disease) Diverticulosis Tubular adenoma Allergic rhinitis Hypogonadism in male Urge incontinence Hypogonadism male BPH w/o urinary obs/LUTS Asthma High cholesterol IDDM (insulin dependent diabetes mellitus) HTN (hypertension) Surgical History History of esophagogastroduodenoscopy (EGD) H/O colonoscopy History of prostate surgery Social History Are you a primary manager care management to a significant other at home: No Do you presently have visiting nurse or other home services: No Patient Tobacco Use Status: Former Tobacco user Tobacco use type: Cigarette Years Smoked: 30 Advance Directives Date on File: 06/30/20 Review of Systems Const All systems reviewed & are unremarkable except as noted in HPI and below Denies chills and Denies fever(s) Card Reports no additional complaints and Denies syncope Resp Denies cough GI Denies abdominal pain and Denies heartburn Reports as per HPI and Denies change in libido Musc Reports no additional complaints Neuro Denies syncope Psych Denies change in libido Endo Denies change in libido Physical Exam Telemedicine evaluation Appropriate responses Regular breathing rate and rhythm Const General: cooperative, healthy appearing, comfortable and no acute distress Orientation/consciousness: patient oriented x3 HEENT Head: Yes normal to inspection Ears: hearing grossly normal bilaterally Face and sinus: Yes normal facial exam Mouth: moist mucous membranes Eyes General: appearance normal, both eyes and all related structures Neck Neck: Yes normal visual inspection, Yes full ROM and Yes trachea midline Chest Chest palpation & inspection: normal inspection of the chest Resp Effort & Inspection: normal respiratory effort, able to speak in complete sentences and no respiratory distress GI Inspection: Yes normal to inspection Back/Spine/Pelvis Cervical Spine: normal cervical lordosis Thoracic/Lumbar Spine: thoracic and lumbar spine normal to inspection Skin General skin exam: no rashes or lesions noted Neuro General: patient oriented x3, gait normal, tone normal and moves all extremities Extrem General: Yes normal to inspection and Yes capillary refill normal Telehealth Telehealth Telehealth Platform: Boxbe Location of provider rendering services: practice address Location of patient: address on file Patient Identification confirmed using: Name, : Yes Telehealth method: video Patient verbally consented to treatment: Yes Patient verbally consented to billing insurance company: Yes Patient informed of any privacy concerns related to visit: Yes Minutes spent on Phone/Video with Pt.: 15 Assessment & Plan Assessment & Plan (1) BPH w/o urinary obs/LUTS: Code(s): N40.0 - Benign prostatic hyperplasia without lower urinary tract symptoms Category: Medical (2) Erectile dysfunction: Code(s): N52.9 - Male erectile dysfunction, unspecified Category: Medical Plan Keep follow-up in November Patient Instructions: Imaging studies, laboratory and physical exam results were discussed and reviewed in detail. No major barriers to patient understanding were identified. An opportunity to ask questions regarding the treatment plan was provided. All questions were answered. The patient expressed understanding and agreement with the above treatment plan. The patient is aware they should contact our office by phone for worsening of their current condition or the appearance of new urologic symptoms. Compliance is encouraged with any medications and followup testing that is ordered. It is a privilege to participate in the urologic care of your patient. If you have any questions or concerns regarding treatment for the above conditions, or other urologic issues, please do not hesitate to contact me. The office telephone contact is [phone]. This note is constructed using voice recognition software. While every effort has been made to ensure accuracy wildlife and game protector errors may have been included. Yours sincerely, Dr Darien Gómez MD, [facility] - [facility]rology Providers of Expert, Compassionate Care for the Genitourinary System Coding Level of Care Code Tele Est Pt Level 3 (62902) Diagnoses BPH w/o urinary obs/LUTS N40.0 Erectile dysfunction N52.9
--- OUTSIDE RECORDS SUMMARY | 2024-07-28 13:21 | XMS_ITS ---
Author Organization [facility] Address [address] [place] [address] Care Team Providers Care Pumping Station Supervisor Name Role Phone Alfredo Lu MD Primary Care Provider Unavailab Carrillo Mcdowell Unavailable [phone] REASON FOR VISIT screening colon PROBLEMS Problem Type ICD Code Onset Dates Problem Status W/U Status Risk SNOMED Code Notes Problem Diverticulosis of large intestine without perforation or abscess without bleeding (K57.30) Active confirmed Diverticul ar disease of colon (012509343) Encounters Encounter Location Date Provider [place] [facility] [place] [address] [place], [place] [id number] 05/29/2024 Carrillo Zuluaga Colon cancer scree ino [...]
--- OUTSIDE RECORDS SUMMARY | 2024-07-28 13:22 | XMS_ITS ---
Author Organization [facility] Address [address] [place] [address] Care Team Providers Care Strategy Consultant Name Role Phone Alfredo Lu MD Primary Care Provider UnavailCarrillo Alberts Unavailable [phone] ALLERGIES No Known Allergies REASON FOR VISIT [...] 02/13/2024 Encounters Encounter Location Date Provider Diagnosis [facility] [address] [place] [address] 02/13/2024 Carrillo Zuluaga Gastroesophageal ref lux disease [...]
--- OUTSIDE RECORDS SUMMARY | 2024-07-28 13:22 | XMS_ITS | Patient Health Record ---
Author Organization [facility] Address [address] [place] [address] Care Team Providers Care Car Icer Name Role Phone Aly SANZ, Alfredo Primary Care Provider Carrillo Chaves [phone] ALLERGIES No Known Allergies RESULTS Component Value Reference Range Notes Pathology (Not yet reviewed by provider) Interpretation: Performing Lab:[facility], [address] [place] [id number] Notes/Report: Glucose, Whole Blood Reviewed date:05/29/2024 04:34:37 PM Interpretation: Performing Lab:[facility], [address] [place] [id number] Notes/Report: Glucose, Whole Blood 151 60-115 mg/dL METER # : [id number] REASON FOR REFERRAL No Information MEDICATIONS Medication [...] HCl 10 MG TAKE 1 TABLET BY [facility] EVERY DAY Oral Once a day Active [...] malignant neoplasm of colon (Z12.11) Active confirmed 848818448 Problem History of adenomatous polyp of colon (Z86.010) Active confirmed 142688237 Problem Diverticulosis of large intestine without perforation or abscess without bleeding (K57.30) Active confirmed Diverticul ar disease of colon (630296458) Problem Gastroesophageal reflux disease without esophagitis (K21.9) Active confirmed [id number] VITAL SIGNS Blood pressure diastolic 00 mm Hg 02/13/2024 Height 67.75 in 02/13/2024 Blood pressure systolic 00 mm Hg 02/13/2024 Weight 161 lbs 02/13/2024 BMI 24.66 kg/m2 02/13/2024 Encounters Encounter Location Date Provider Diagnosis [facility] [place] [address] [place], [place] [phone] 05/29/2024 Carrillo Zuluaga Colon cancer screeni ng Z12.11 ; Colon polyps K63.5 ; Diverticulosis of large intestine without perforation or abscess without bleeding K57.30 and Other hemorrhoids K64.8 [facility] [address] [place] [address] 02/13/2024 Carrillo Zuluaga Gastroesophageal ref lux disease without esophagitis K21.9 ; History of adenomatous polyp of colon Z86.010 and Encounter for screening for malignant neoplasm of colon Z12.11 [facility] [address] [place] [phone] 01/16/[address] [facility] [address] [place] [phone] 02/13/2024 Carrillo Zuluaga ASSESSMENTS Encounter Date Diagnosis [...] Insured Coverage Start Date Coverage End Date [facility] [address] Attn Claims [place]IS [place] [id number] ESEQUIEL HEALY Self - patient is the insured MEDICAL (GENERAL) HISTORY Medical History History ICD Code Tubular adenoma removed in --had a neg colonoscopy in 09/2011 except for diverticulosis and internal hemorrhoids Gastroesophageal reflux--EGD in 06/2006-small HH, gastritis with H.pylori-Rx'd with PPI, Biaxin, Amoxicillen--EGD in 06/2013--small HH-no esophagitis, no Noel's Asthma IDDM since age 27 Hyperlipidemia Arthritis Denies [place], stroke, and renal disease Anxiety Hypertension Negative screening colonoscopy in November of 2018. Surgical History Surgery Date(Month/Year) Prostate surgery for BPH
--- OUTSIDE RECORDS SUMMARY | 2024-07-28 13:22 | XMS_ITS ---
Author Organization [facility] Address [address] [place] [address] Care Team Providers Care Ed Educational Aide Name Role Phone Alfredo Lu MD Primary Care Provider Unavailab Carrillo Mcdowell [phone] REASON FOR VISIT please send colon prep [...] Active Encounters Encounter Location Date Provider Diagnosis [facility] [address] [place] [phone] 02/13/2024 Carrillo Zuluaga PLAN OF TREATMENT Medication [...]
== END 2024-07-28 14:37 | disposition home or self-care (01) ==
LOC: HO.HUSH 13:18
PROVIDERS: PCP Family Medicine; Visit Provider Urology
DX: N40.0 Benign prostatic hyperplasia without lower urinary tract symptoms (principal); N52.9 Male erectile dysfunction, unspecified
CPT/HCPCS: 99213

== ENCOUNTER → 2024-07-28 13:18 | Outpatient (BNVA) | payer OTHER, SELFPAY | PROVIDERS: PCP Family Medicine; Visit Provider Urology ==

== ENCOUNTER → 2024-10-02 13:59 | Outpatient (REF) | payer OTHER, SELFPAY ==
--- NOTE | 2024-10-02 14:03 | CA_ITS ---
Transthoracic Echocardiogram Patient (Last, First, Middle): Philip Mcclellan, Gender: Male Date of : 1955 Age: 69 Procedure Date: 10/02/2024 Procedure Type: Transthoracic Echocardiogram Location: OP Height: 167.64 cm Weight: 76.66 kg BSA: 1.86 m2 Heart Rate: bpm BP: 122 / 60 mmHg Nsh Teacher: Referring MD: Alfredo Lu MD Senior It Assistant: Maikol Monaco MD Symptoms: R01.1 CARDIAC MURMUR Study Quality: Adequate ECG Rhythm: Sinus Conclusions: - 1. Normal LV ejection fraction of 60-65% with impaired relaxation filling pattern 2. Normal cardiac valvular Dopplers 3. Upper limits of normal ascending aortic size 4. No gross pericardial effusion Findings Left Ventricle Normal left ventricular size, thickness, and systolic function. The visually estimated ejection fraction is between 60-65%. Spectral Doppler is indicative of an impaired relaxation filling pattern. E/E prime ratio is between 8 and 15 consistent with indeterminate filling pressures. Right Ventricle Normal right ventricular cavity size and systolic function. Atria The left atrium is likely dilated. There is a mobile atrial septum noted. Interatrial shunt cannot be excluded. The right atrium is normal in size. Aortic Valve Normal aortic valve structure and function. There is no aortic valve stenosis. There is no aortic valve regurgitation. Mitral Valve Normal mitral valve structure and function. There is trace mitral valve regurgitation. There is no mitral valve stenosis. Pulmonic Valve The pulmonic valve is likely normal. Tricuspid Valve Likely normal tricuspid valve structure and function. Tricuspid regurgitation envelope is inadequate for calculation of right ventricular systolic pressure. Normal right atrial pressure. Great Vessels All visible segments of the aorta are normal in size. The pulmonary artery was not well visualized. Venous The inferior vena cava is normal in size and collapses greater than 50% with inspiration. Pericardium/Pleural There is no evidence of pericardial effusion. Prior Study Comparison no previous study in the last 5 years for comparison Measurements 2D Linear Measurements IVSd: 0.97 0.6-0.9/0.6-1.0 cm LVIDd: 5.00 3.9-5.3/4.2-5.9 cm LVIDd Index: 2.69 2.4-3.2/2.2-3.1 cm/m2 LVIDs: 3.08 2.0-3.6 cm LVPWd: 0.96 0.7-1.1 cm Ao Root: 3.30 2.1-3.5 cm LA Diam: 4.10 2.7-3.8/3.0-4.0 cm LAIDs Index: 2.20 1.5-2.3 cm/m2 LV Mass: 216.13 67-162/88-224 g LV Mass Index: 116.20 43-95/49-115 g/m2 LVOT Diam: 2.10 3.0+(-)1.3 cm 2D Systolic Function EF 4C: 59.80 >55% EF 2C: 64.30 >55% EF BiP: 60.70 >55% Mitral Valve MV Pk E: 0.78 MV PK A: 0.96 MV Decel Time: 241.00 E/A: 0.80 E'Lateral: 8.27 E'Medial: 5.87 E/E' Med: 13.30 E/E' Lat: 9.40 PHT: 71.00 MVA PHT: 3.10 Decel [place]: 3.24 Aortic Valve AoV Pk Ion: 1.66 AoV Mn Ion: 1.03 AoV VTI: 0.37 AoV Pk Grad: 11.00 Aov Mn Grad: 5.00 SEUN Cont.VTI: 2.38 LVOT LVOT Pk Ion: 1.11 LVOT Mn Ion: 0.72 LVOT VTI: 0.25 LVOT Pk Grad: 5.00 LVOT Mn Grad: 3.00 LVOT Diam: 2.10 LVOT Area: 3.46 Diastolic Function MV Pk E: 0.78 MV Pk A: 0.96 E/A: 0.80 E'Medial: 5.87 E/E' Med: 13.30 E' Laterial: 8.27 E/E' Lat: 9.40 Right Ventricle TAPSE (mm): 21.90 TVS' Ion: 14.60 Tricuspid Valve TR Pk Ion: 2.28 TR Pk Grad: 21.00 Great Vessels Aorta Ao Root-2D: 3.30 2.0-3.7 cm Ao Asc: 3.60 2.1-3.4 cm Pulmonary Valve PV Pk Ion: 1.27 Peak PV Grad: 6.00 Updated in Other Vendor System with Status of Final Maikol Monaco MD electronically signed on 10/02/2024 4:16:55 PM with status of Final
== END ==
LOC: HO.CARD 13:59
PROVIDERS: PCP Family Medicine; Visit Provider Family Medicine
DX: R01.1 Cardiac murmur, unspecified (principal)
CPT/HCPCS: 93306

== ENCOUNTER → 2024-10-02 14:03 | Outpatient (BNV) | payer OTHER, SELFPAY | PROVIDERS: PCP Family Medicine; Visit Provider Internal Medicine Cardiovascular Disease | DX: R01.1 Cardiac murmur, unspecified (principal) | CPT/HCPCS: 93306 ==

== ENCOUNTER 2024-10-29 09:48 | Emergency (ER) | payer OTHER, SELFPAY ==
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
[2024-10-29 09:56] VITALS: BP 144/77; BP 173/75; PULSE 78; PULSE 80; RESP 18; TEMP 36.6; O2SAT 96; O2SAT 97; BMI 29.8
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
--- NOTE | 2024-10-29 11:07 | PC.NURSE ---
c-collar taken off by
--- OUTSIDE RECORDS SUMMARY | 2024-10-29 13:52 | XMS_ITS ---
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
--- OUTSIDE RECORDS SUMMARY | 2024-10-29 13:52 | XMS_ITS | Patient Health Record ---
Author Organization [facility] Address [address] [place] [address] Care Team Providers Care Group Leader [employer] Testing Name Role Phone Aly SANZ, Alfredo Primary Care Provider Carrillo Chaves [phone] ALLERGIES No Known Allergies RESULTS Component Value Reference Range Notes Pathology (Not yet reviewed by provider) Interpretation: Performing Lab:[facility], [address] [place] [id number] Notes/Report: Glucose, Whole Blood Reviewed date:05/29/2024 04:34:37 PM Interpretation: Performing Lab:[facility], [address] [place] [id number] Notes/Report: Glucose, Whole Blood 151 60-115 mg/dL METER # : [id number] REASON FOR REFERRAL No Information MEDICATIONS Medication [...] HCl 10 MG TAKE 1 TABLET BY [facility] EVERY DAY Oral Once a day Active [...] malignant neoplasm of colon (Z12.11) Active confirmed 325414141 Problem History of adenomatous polyp of colon (Z86.010) Active confirmed 628143115 Problem Diverticulosis of large intestine without perforation or abscess without bleeding (K57.30) Active confirmed Diverticul ar disease of colon (801792502) Problem Gastroesophageal reflux disease without esophagitis (K21.9) Active confirmed 679390285 VITAL SIGNS Blood pressure diastolic 00 mm Hg 02/13/2024 Height 67.75 in 02/13/2024 Blood pressure systolic 00 mm Hg 02/13/2024 Weight 161 lbs 02/13/2024 BMI 24.66 kg/m2 02/13/2024 Encounters Encounter Location Date Provider Diagnosis [facility] [place] [address], [place] [phone] 05/29/2024 Carrillo Zuluaga Colon cancer screeni ng Z12.11 ; Colon polyps K63.5 ; Diverticulosis of large intestine without perforation or abscess without bleeding K57.30 and Other hemorrhoids K64.8 [facility] [address] [place] [phone] 02/13/2024 Carrillo Zuluaga Gastroesophageal ref lux disease without esophagitis K21.9 ; History of adenomatous polyp of colon Z86.010 and Encounter for screening for malignant neoplasm of colon Z12.11 [facility] [address] [place] [phone] 01/16/2024 Carrillo Zuluaga [facility] [address] [place] [phone] 02/13/2024 Carrillo Zuluaga ASSESSMENTS Encounter Date Diagnosis [...] Insured Coverage Start Date Coverage End Date [facility] [address] Attn Claims MARIS Good [id number] ESEQUIEL HEALY Self - patient is the insured MEDICAL (GENERAL) HISTORY Medical History History ICD Code Tubular adenoma removed in --had a neg colonoscopy in 09/2011 except for diverticulosis and internal hemorrhoids Gastroesophageal reflux--EGD in 06/2006-small HH, gastritis with H.pylori-Rx'd with PPI, Biaxin, Amoxicillen--EGD in 06/2013--small HH-no esophagitis, no Noel's Asthma IDDM since age 27 Hyperlipidemia Arthritis Denies [place], stroke, and renal disease Anxiety Hypertension Negative screening colonoscopy in November of 2018. Surgical History Surgery Date(Month/Year) Prostate surgery for BPH
--- OUTSIDE RECORDS SUMMARY | 2024-10-29 13:52 | XMS_ITS ---
Author Organization [facility] Address [address] [place] [address] Care Team Providers Care Tonal Regulator Name Role Phone Alfredo Lu MD Primary Care Provider Unavailab Carrillo Mcdowell [phone] REASON FOR VISIT please send colon prep [...] Active Encounters Encounter Location Date Provider Diagnosis [facility] [address] [place] [phone] 02/13/2024 Carrillo Zuluaga PLAN OF TREATMENT Medication [...]
--- OUTSIDE RECORDS SUMMARY | 2024-10-29 13:52 | XMS_ITS ---
Author Organization [facility] Address [address] [place] [address] Care Team Providers Care Promotional Representative Name Role Phone Alfredo Lu MD Primary Care Provider UnavailCarrillo Alberts Unavailable [phone] ALLERGIES No Known Allergies REASON FOR VISIT [...] Encounters Encounter Location Date Provider Diagnosis [facility] [address] [place] [address] 02/13/2024 Carrillo Zuluaga Gastroesophageal ref lux disease [...]
[2024-10-29 15:31] VITALS: BP 173/75; PULSE 78; RESP 18; TEMP 36.6; O2SAT 96
== END 2024-10-29 15:31 | disposition left against medical advice (07) ==
PROVIDERS: Emergency Provider Emergency Medicine; PCP Family Medicine
DX: S50.02XA Contusion of left elbow, initial encounter (principal); V43.52XA Car driver injured in collision with other type car in traffic accident, initial encounter; J45.909 Unspecified asthma, uncomplicated; Y93.9 Activity, unspecified; Y92.410 Unspecified street and highway as the place of occurrence of the external cause; Y99.9 Unspecified external cause status
CPT/HCPCS: 70450; 72125; 73060; 73080; 99284

== ENCOUNTER → 2024-10-29 10:23 | Outpatient (BNV) | payer OTHER, SELFPAY | PROVIDERS: Emergency Provider Emergency Medicine; PCP Family Medicine; Visit Provider Radiology Diagnostic Radiology | DX: M79.602 Pain in left arm (principal); Z04.3 Encounter for examination and observation following other accident; V89.2XXA Person injured in unspecified motor-vehicle accident, traffic, initial encounter | CPT/HCPCS: 70450; 72125; 73060; 73080 ==

== ENCOUNTER 2024-11-19 09:36 | Outpatient (AMB) | payer OTHER, SELFPAY ==
[2024-11-19 09:41] VITALS: BP 132/60; PULSE 80; O2SAT 98; BMI 26.6
--- NOTE | 2024-11-19 09:41 | MHC.OFFVIS ---
Vital Signs 11/19/24 09:41 Height 5 ft 7 in Weight 169 lb 12.095 oz BMI 26.6 BP 132/60 Blood Pressure Location Lt brachial Position Sitting Pulse 80 Pulse Source Pulse Oximeter Pulse Oximetry (%) 98 Oxygen Delivery Method Room Air Intake Visit Reasons: COPD Intake Note: pt is here for follow up Special Needs Bus Driver Required: No Allergies REAGAN Inhibitors Allergy (Mild, Verified 11/19/24 09:54) Rash bupropion [From Wellbutrin] Allergy (Unknown, Verified 11/19/24 09:54) Unknown simvastatin Adverse Reaction (Intermediate, Verified 11/19/24 09:54) myalgia Medication List - Last Reconciled 11/19/24 by Cristóbal Gabriel MD albuterol sulfate 90 mcg/actuation 1 puff inhalation QID PRN 30 days blood sugar diagnostic As directed calcium citrate 500 mg PO DAILY cetirizine 10 mg PO DAILY cyclobenzaprine 5 mg PO Q8H PRN 5 days fluticasone propion-salmeterol 250-50 mcg/dose (Wixela Inhub) 1 ea PO BID fluticasone propionate 50 mcg/actuation 1 spray intranasal BID PRN insulin detemir U-100 (Levemir U-100 Insulin) 20 units subcut QPM insulin syringe-needle U-100 As directed lancets As directed loperamide (Imodium A-D) 2 mg PO Q6H PRN losartan-hydrochlorothiazide 50-12.5 mg 1 tab PO DAILY metformin 1,000 mg PO BID metoprolol succinate ER 50 mg PO QAM montelukast 10 mg PO DAILY omalizumab (Xolair) 300 mg subcut Q4W omeprazole 20 mg PO DAILY rosuvastatin 5 mg PO DAILY syringe with needle (BD Luer-Stefan Syringe) As directed weekly syringe with needle, safety Qweekly tadalafil 10 mg PO DAILY 90 days tamsulosin 0.4 mg PO DAILY 90 days testosterone 1 packet transdermal DAILY 30 days trazodone 100 mg PO BEDTIME Do you need a note to return to daycare/school/sports/work: No HPI HPI COPD: Details: This 69 years old very pleasant gentleman is a long-time, patient suffering from severe allergic rhinitis, bronchial asthma/COPD, along with his other comorbidities. He is here for 4 months follow-up. He claims that his nasal symptoms as well as respiratory symptoms are definitely much better since he is on biologic treatment. However he still has some nasal congestion and lot of mucus especially in the morning hours. Using steam inhalation does definitely help him. He admits that compared to his condition before starting on biologic treatment and now there is a marked improvement. He is able to walk around and do his usual day-to-day work without much shortness of breath. Cough is mild and intermittent. I notice that he has lost significant weight in the last 4 months, he attributes this to relatively high blood sugar levels, and also as per instruction by his primary care physician he is trying to lose weight. [facility] Medical History COVID-19 COPD (chronic obstructive pulmonary disease) Arthritis Hyperlipidemia Diabetes GERD (gastroesophageal reflux disease) Diverticulosis Tubular adenoma Allergic rhinitis Hypogonadism in male Urge incontinence Hypogonadism male BPH w/o urinary obs/LUTS Asthma High cholesterol IDDM (insulin dependent diabetes mellitus) HTN (hypertension) Surgical History History of esophagogastroduodenoscopy (EGD) H/O colonoscopy History of prostate surgery Social History Are you a primary medicare insurance specialist to a significant other at home: No Do you presently have visiting nurse or other home services: No Patient Tobacco Use Status: Former Tobacco user Tobacco use type: Cigarette Years Smoked: 30 Advance Directives Date on File: 06/30/20 Review of Systems Const All systems reviewed & are unremarkable except as noted in HPI and below Eyes Reports no additional complaints ENT Reports nasal congestion (Mild intermittent mostly in a.m.) Card Denies chest pain, Reports rapid heart rate (If he uses ProAir), Denies irregular heart rhythm and Denies leg edema Resp Reports as per HPI GI Reports heartburn (Being treated with omeprazole) Reports erectile dysfunction Musc Reports no additional complaints Skin/Breast Reports system reviewed and no additional complaints, except as documented Neuro Reports no additional complaints Psych Reports no additional complaints Physical Exam Vital Signs: Last Vital Signs Pulse 80 11/19/24 09:41 BP 132/60 11/19/24 09:41 Pulse Ox 98 11/19/24 09:41 Oxygen Delivery Method Room Air 11/19/24 09:41 BMI result Body Mass Index 26.6 Const General: healthy appearing, comfortable, no acute distress, alert and awake Orientation/consciousness: patient oriented x3 HEENT Head: Yes normal to inspection General nose exam: No nasal polyps present, mucous membranes and turbinates abnormal (Moderately enlarged nasal turbinates), No nasal discharge present and Other nasal findings present (Moderate amount of nasal congestion is noted) Face and sinus: Yes sinuses nontender Mouth: oropharynx normal Throat: Yes posterior oropharynx normal Eyes General: appearance normal, both eyes and all related structures Neck Neck: Yes normal visual inspection, Yes no lymphadenopathy, Yes trachea midline and Yes no JVD Thyroid: Thyroid normal Chest Chest palpation & inspection: normal inspection of the chest, normal palpation of entire chest wall and no tenderness Resp Other: Percussion note resonant, breath sounds are distant with prolonged expiratory phase On auscultation lungs are clear , No wheezes or crepitations are heard today. Cardio Palpation: normal PMI Rate: regular rate Rhythm: regular rhythm Heart sounds: no gallops and no murmurs GI Palpation (GI): Soft to palpation, nontender, No hepatosplenomegaly present and no masses Auscultation: normal bowel sounds Back/Spine/Pelvis Thoracic/Lumbar Spine: thoracic and lumbar spine normal to inspection Skin General skin exam: no rashes or lesions noted Neuro General: patient oriented x3 and no focal motor deficits Cranial nerves: Yes CN's II-XII intact bilaterally Extrem General: Yes normal to inspection, Yes no clubbing, cyanosis or edema and Yes no calf tenderness Psych Appearance: grossly normal and well kempt Speech and movement: Normal speech and movement present Assessment & Plan Assessment & Plan (1) Asthma-COPD overlap syndrome: Comment: SEE ABOVE UNDER ALLERGIC ASTHMA Code(s): J44.9 - Chronic obstructive pulmonary disease, unspecified Category: Medical Plan: As under allergic asthma (2) Severe persistent allergic asthma: Comment: CHRONIC ALLERGIC BRONCHIAL ASTHMA/COPD. RELATIVELY STABLE AT THIS TIME. CONTROLLED BETTER SINCE HE IS ON XOLAIR INJECTIONS STILL HAS INTERMITTENT COUGH ESPECIALLY AT NIGHT AND IN THE MORNING HOURS. Code(s): J45.50 - Severe persistent asthma, uncomplicated Category: Medical Plan: CONTINUE WIXELA 250-51 INHALATION B.I.D. ALBUTEROL HFA 2 PUFFS Q 4-6 HOURS P.R.N. FOR ACUTE COUGH OR WHEEZING. MONTELUKAST 10 MG DAILY. STEAM INHALATIONS MORNING AND EVENING TIME. (3) Allergic rhinitis: Comment: CHRONIC ALLERGIC RHINITIS, PERENNIAL, SECONDARY TO MULTIPLE ENVIRONMENTAL ALLERGIES. CONTROLLED AT THIS TIME WELL BUT HE STILL CONTINUES TO HAVE SOME DEGREE OF NASAL CONGESTION, AND URGE TO CLEAR MUCUS. USE OF STEAM INHALATIONS ESPECIALLY IN THE MORNING IS HELPFUL. Code(s): J30.9 - Allergic rhinitis, unspecified Category: Medical Plan: CONTINUES XOLAIR INJECTION 300 MG EVERY 4 WEEKS( AT [facility] ) FLONASE NASAL SPRAY 1 SPRAY IN EACH NOSTRIL B.I.D. MAY USE CETIRIZINE 10 MG ONCE A DAY P.R.N. MONTELUKAST 10 MG DAILY. Coding Level of Care Code Est Pt Level 3 (16057) Diagnoses Asthma-COPD overlap syndrome J44.9 Severe persistent allergic asthma J45.50 Allergic rhinitis J30.9
--- OUTSIDE RECORDS SUMMARY | 2024-11-19 10:24 | XMS_ITS ---
Author Organization [facility] Address [address] [place] [address] Care Team Providers Care Supervisor Machine Workers Name Role Phone Alfredo Lu MD Primary Care Provider Unavailab Carrillo Mcdowell Unavailable [phone] REASON FOR VISIT screening colon PROBLEMS Problem Type ICD Code Onset Dates Problem Status W/U Status Risk SNOMED Code Notes Problem Diverticulosis of large intestine without perforation or abscess without bleeding (K57.30) Active confirmed Diverticul ar disease of colon (665805740) Encounters Encounter Location Date Provider Diagnosis [facility] Outpatient [address], [place] [id number] 05/29/2024 Carrillo Zuluaga Colon cancer scree ino [...]
--- OUTSIDE RECORDS SUMMARY | 2024-11-19 10:24 | XMS_ITS ---
Author Organization [facility] Address [address] [place] [address] Care Team Providers Care Judge Name Role Phone Alfredo Lu MD Primary Care Provider UnavailCarrillo Alberts Unavailable [phone] ALLERGIES No Known Allergies REASON FOR VISIT [...] 02/13/2024 Encounters Encounter Location Date Provider Diagnosis [facility] [address] [place] [address] 02/13/2024 Carrillo Zuluaga Gastroesophageal ref lux disease [...]
--- OUTSIDE RECORDS SUMMARY | 2024-11-19 10:24 | XMS_ITS | Patient Health Record ---
Author Organization [facility] Address [address] [place] [address] Care Team Providers Care Tour Production Supervisor Name Role Phone Aly SANZ, Alfredo Primary Care Provider Carrillo Chaves [phone] ALLERGIES No Known Allergies RESULTS Component Value Reference Range Notes Pathology (Not yet reviewed by provider) Interpretation: Performing Lab:[facility], [address] [place] [id number] Notes/Report: Glucose, Whole Blood Reviewed date:05/29/2024 04:34:37 PM Interpretation: Performing Lab:[facility], [address] [place] [id number] Notes/Report: Glucose, Whole Blood 151 60-115 mg/dL METER # : [id number] REASON FOR REFERRAL No Information MEDICATIONS Medication [...] HCl 10 MG TAKE 1 TABLET BY [facility] EVERY DAY Oral Once a day [...] malignant neoplasm of colon (Z12.11) Active confirmed 329936895 Problem History of adenomatous polyp of colon (Z86.010) Active confirmed 532296994 Problem Diverticulosis of large intestine without perforation or abscess without bleeding (K57.30) Active confirmed Diverticul ar disease of colon (840869637) Problem Gastroesophageal reflux disease without esophagitis (K21.9) Active confirmed 622902060 VITAL SIGNS Blood pressure diastolic 00 mm Hg 02/13/2024 Height 67.75 in 02/13/2024 Blood pressure systolic 00 mm Hg 02/13/2024 Weight 161 lbs 02/13/2024 BMI 24.66 kg/m2 02/13/2024 Encounters Encounter Location Date Provider Diagnosis [facility] Outpatient [address] [place], [place] [id number] 05/29/2024 Carrillo Zuluaga Colon cancer screeni ng Z12.11 ; Colon polyps K63.5 ; Diverticulosis of large intestine without perforation or abscess without bleeding K57.30 and Other hemorrhoids K64.8 [facility] [address] [place] [phone] 02/13/2024 Carrillo Zuluaga Gastroesophageal ref lux disease without esophagitis K21.9 ; History of adenomatous polyp of colon Z86.010 and Encounter for screening for malignant neoplasm of colon Z12.11 [facility] [address] [place] [phone] 01/16/2024 Carrillo Zuluaga [facility] [address] [place] [phone] 02/13/2024 Carrillo Zuluaga ASSESSMENTS Encounter Date Diagnosis [...] Start Date Coverage End Date [facility] [address] Attn Claims [place] [phone] [id number] ESEQUIEL HEALY Self - patient is the [...]
--- OUTSIDE RECORDS SUMMARY | 2024-11-19 10:24 | XMS_ITS ---
Author Organization [facility] Address [address] [place] [address] Care Team Providers Care Vault Installer Name Role Phone Alfredo Lu MD Primary Care Provider Unavailab Carrillo Mcdowell [phone] REASON FOR VISIT please send colon prep [...] Active Encounters Encounter Location Date Provider Diagnosis [facility] [address] [place] [phone] 02/13/2024 Carrillo Zuluaga PLAN OF TREATMENT Medication [...]
== END 2024-11-19 09:54 | disposition home or self-care (01) ==
PROVIDERS: PCP Family Medicine; Visit Provider Internal Medicine
DX: J44.9 Chronic obstructive pulmonary disease, unspecified (principal); J45.50 Severe persistent asthma, uncomplicated; J30.9 Allergic rhinitis, unspecified
CPT/HCPCS: 99213

== ENCOUNTER → 2024-11-19 09:36 | Outpatient (BNVA) | payer OTHER, SELFPAY | PROVIDERS: PCP Family Medicine; Visit Provider Internal Medicine | DX: J45.50 Severe persistent asthma, uncomplicated (principal); J44.9 Chronic obstructive pulmonary disease, unspecified; J30.9 Allergic rhinitis, unspecified | CPT/HCPCS: 99212 ==

== ENCOUNTER 2024-12-17 10:22 | Outpatient (REF) | payer OTHER, SELFPAY ==
[2024-12-17 11:18] LABS: Hematocrit 40.9 % (42.0-52.0); Hemoglobin 14.1 g/dl (14.0-18.0); Mean Corpuscular HGB Conc 34.5 g/dl (31.0-36.0); Mean Corpuscular Hemoglobin 32.1 pg (27.0-33.0); Mean Corpuscular Volume 93.2 fL (80.0-98.0); Mean Platelet Volume 11.2 fL (9.4-12.4); Platelet Count 274 X10*3/uL (160-400); Red Blood Count 4.39 X10*6/uL (4.60-5.80); Red Cell Distribution Width 12.5 % (11.0-16.0); White Blood Count 8.3 X10*3/uL (4.8-10.8)
[2024-12-17 12:15] LABS: Prostate Specific Antigen 3.41 ng/mL (<0.05-4.0)
[2024-12-23 16:14] LABS: Testosterone, Total 53 ng/dL (250-1100)
== END 2024-12-17 10:23 | disposition home or self-care (01) ==
LOC: HO.LAB 10:22
PROVIDERS: PCP Family Medicine; Visit Provider Urology
DX: E29.1 Testicular hypofunction (principal); Z12.5 Encounter for screening for malignant neoplasm of prostate
CPT/HCPCS: 36415; 84153; 84403; 85027

== ENCOUNTER 2025-01-07 10:13 | Outpatient (AMB) | payer OTHER, SELFPAY ==
--- NOTE | 2025-01-07 10:25 | A.OFFVIS_ITS ---
Intake Visit Reasons: 6m/labs Intake Note: Patient is present for6M/LABS Urology Medication:TAMSULOSIN,TESTOSTERONE,TADALAFIL Antibiotic Allergy:NONE Blood Thinner:NONE Medical Field Representative Required: No Allergies REAGAN Inhibitors Allergy (Mild, Verified 01/07/25 10:28) Rash bupropion [From Wellbutrin] Allergy (Unknown, Verified 01/07/25 10:28) Unknown simvastatin Adverse Reaction (Intermediate, Verified 01/07/25 10:28) myalgia HPI Comments Details: Philip is a pleasant male. He is a patient of Dr. Lu. He is seen for the following urologic issues - hypogonadism in setting of diabetes - postvoid dribbling - lower urinary tract symptoms - erectile dysfunction Continues with tamsulosin and daily Cialis with 20 mg on demand Erectile dysfunction Cialis 10 mg daily - at 20 mg on demand Lower urinary tract symptoms - terazosin 10 mg Failed testosterone gel, restart injection Hypogonadism Longstanding On testosterone replacement Failed gel with poor absorption Restart 0.4 cc subcutaneous Laboratories - 02/17 T 1300, Hct 48 - 04/20 761 4.8 45. 10/22 T 722 P 3.4, 04/21 555 3.5 43, 10/23 460 2.8 44 HBA1c 7.7, 02/20 920 3.7 HBA1c 7.0, 12/22 52 3.4 Continue with current dosing, may need to be decreased Erectile dysfunction Longstanding Does respond to Cialis 10 mg daily Lower urinary tract symptoms Postvoid dribbling Current therapy 10 mg terazosin Previous prostate procedure Previously used imipramine p.o. b.i.d. Insulin-dependent diabetic PSA 10/21 3.6 Cystoscopy 06/23 open bladder neck Bilateral inguinal lymphadenopathy Palpable high inguinal region bilateral 04/19 CT scan mildly thickened bladder, right 2 cm inguinal lymph node [facility] Medical History COVID-19 COPD (chronic obstructive pulmonary disease) Arthritis Hyperlipidemia Diabetes GERD (gastroesophageal reflux disease) Diverticulosis Tubular adenoma Allergic rhinitis Hypogonadism in male Urge incontinence Hypogonadism male BPH w/o urinary obs/LUTS Asthma High cholesterol IDDM (insulin dependent diabetes mellitus) HTN (hypertension) Surgical History History of esophagogastroduodenoscopy (EGD) H/O colonoscopy History of prostate surgery Social History Are you a primary child care specialist to a significant other at home: No Do you presently have visiting nurse or other home services: No Patient Tobacco Use Status: Former Tobacco user Tobacco use type: Cigarette Years Smoked: 30 Advance Directives Date on File: 06/30/20 Review of Systems Const Denies chills and Denies fever(s) Card Reports no additional complaints and Denies syncope Resp Denies cough GI Denies abdominal pain and Denies heartburn Reports as per HPI and Denies change in libido Neuro Denies syncope Psych Denies change in libido Endo Denies change in libido Physical Exam Const General: cooperative, healthy appearing, comfortable and no acute distress Orientation/consciousness: patient oriented x3 HEENT Face and sinus: Yes normal facial exam Mouth: moist mucous membranes Neck Neck: Yes normal visual inspection, Yes full ROM and Yes trachea midline Chest Chest palpation & inspection: normal inspection of the chest Resp Effort & Inspection: normal respiratory effort, able to speak in complete sentences and no respiratory distress GI Inspection: Yes normal to inspection Back/Spine/Pelvis Cervical Spine: normal cervical lordosis Thoracic/Lumbar Spine: thoracic and lumbar spine normal to inspection Skin General skin exam: no rashes or lesions noted Neuro General: patient oriented x3, gait normal, tone normal and moves all extremities Extrem General: Yes normal to inspection and Yes capillary refill normal Assessment & Plan Assessment & Plan (1) BPH w/o urinary obs/LUTS: Code(s): N40.0 - Benign prostatic hyperplasia without lower urinary tract symptoms Category: Medical (2) Erectile dysfunction: Code(s): N52.9 - Male erectile dysfunction, unspecified Category: Medical (3) Hypogonadism in male: Code(s): E29.1 - Testicular hypofunction Category: Medical Plan Restart injectable testosterone Orders: Orders Testosterone, Total 6 Months E29.1 - Testicular hypofunction Prostate Specific Antigen 6 Months E29.1 - Testicular hypofunction Complete Blood Count no Diff 6 Months E29.1 - Testicular hypofunction Medications: New syringe (disposable) (BD Luer-Stefan Syringe) Testosterone injection weekly 30 ea 0RF E29.1 - Testicular hypofunction, E34.9 - Endocrine disorder, unspecified needle (disp) 23 gauge (BD Regular Bevel Mobile) Inject testosterone subcutaneous 30 ea 0RF E29.1 - Testicular hypofunction, R79.89 - Other specified abnormal findings of blood chemistry needle (disp) 18 G (BD Regular Bevel Mobile) As directed - draw up testosterone 30 ea 0RF E29.1 - Testicular hypofunction testosterone cypionate (Depo-Testosterone) 80 mg (0.4 mL) subcut QWEEK 4 weeks 2 mL 5RF E29.1 - Testicular hypofunction Discontinued testosterone Apply to shoulder and rub in until dry Discontinued Reason: Patient Completed Course 1 packet transdermal DAILY 30 days 150 grams 5RF E29.1 - Testicular hypofunction Patient Instructions: This note is constructed using voice recognition software. While every effort has been made to ensure accuracy deputy sheriff generalist/bailiff errors may have been included. Imaging studies, laboratory and physical exam results were discussed and reviewed in detail. No major barriers to patient understanding were identified. An opportunity to ask questions regarding the treatment plan was provided. All questions were answered. The patient expressed understanding and agreement with the above treatment plan. The patient is aware they should contact our office by phone for worsening of their current condition or the appearance of new urologic symptoms. Compliance is encouraged with any medications and followup testing that is ordered. It is a privilege to participate in the urologic care of your patient. If you have any questions or concerns regarding treatment for the above conditions, or other urologic issues, please do not hesitate to contact me. The office telephone contact is [phone]. Sincerely, Dr Darien Gómez MD, [facility] - Urology Compassionate Specialist Care for the Genitourinary System Coding Level of Care Code Est Pt Level 4 (65845) Diagnoses BPH w/o urinary obs/LUTS N40.0 Erectile dysfunction N52.9 Hypogonadism in male E29.1
--- OUTSIDE RECORDS SUMMARY | 2025-01-07 11:57 | XMS_ITS | Patient Health Record ---
Author Organization [facility] Address [address] [place] [address] Care Team Providers Care Electrotyper Helper Name Role Phone Aly SANZ, Alfredo Primary Care Provider Unavailab Carrillo Mcdowell Unavailable [phone] Allergies No Known Allergies Results Component Value Reference Range Notes Glucose, Whole Blood Reviewed date:05/29/2024 04:34:37 PM Interpretation: Performing Lab:[facility], [address] [place] [phone] Notes/Report: Glucose, Whole Blood 151 60-115 mg/dL METER # : [id number] Pathology (Not yet reviewed by provider) Interpretation: Performing Lab:[facility], [address] [place] [phone] Notes/Report: ----- Name: Werner Ariel Tracey Age/Sex: 68/M : 1955 Unit#: [id number] Attend Dr: Carrillo Zuluaga MD Re05/29/24 Status : [facility] Location: [facility] Disch: ----- SPEC : [id number] RECD : 05/29/24 STATUS: MAHENDRA ALCANTAR NUM: [id number] ERICKA: 05/29/[address] [facility] [address]: Carrillo Zuluaga MD ENTERED: 05/29/24 SP TYPE: Surgical OTHR DR: Alfredo Lu MD ORDERED: HE Stain/ , Gross Micro L4/4 Diagnosis A. Colon, ascending, polypectomy: Colonic mucosa with thermal artifact and some features of sessile serrated lesion/polyp. B. Colon, transverse , polypectomy: Hyperplastic mucosal polyp. C. Colon, 60 cm, polypectomy: Hyperplastic mucosal polyp. D. Rectum, polypecto my: Fragments of tubular adenoma; negative for high-grade dysplasia or carcinoma. Clinical History Pre-Op Dx: Encounter for screening for malignant neoplasm of colon Post-Op Dx: Polyps, diverticulosis, hemorrhoids Microscopic Description A-D. Microscopic sec tions reviewed. Material Received A. Ascending colon polyp B. Transverse colon polyp C. Polyp at 60 D. Rectal polyp Gross Description Received in 4 parts. A. Received in forma carlos labeled ?ascending colon polyp? is a fragment of red-pink soft tissue measuring 0.3 cm in greatest dimension which is entirely submitted for microscopic examination, 1 piece in cassette A. B. Received in forma carlos labeled ?transverse colon polyp? is a fragment of pink-moore soft tissue measuring 0.4 cm in greatest dimension which is entirely submitted for microscopic examination, 1 piece in cassette B. C. Received in forma carlos labeled ?polyp at 60? is a fragment of moore-white soft tissue measuring 0.5 cm in greatest dimension which is entirely submitted for microscopic examination, 1 piece in cassette C. CONTINUED ON NEXT PAGE ----- Name: Ariel Mclcellan Age/Sex: 68/M : 1955 Unit#: [id number] Attend Dr: Carrillo Zuluaga MD Re05/29/24 Status : [facility] Location: [facility] Disch: ----- SPEC : [id number] RECD : 05/29/24-1148 STATUS: [facility] NUM: [id number] ERICKA: 05/29/24-[address] [facility] [address]: Carrillo Zuluaga MD ENTERED: 05/29/24- 12 SP TYPE: Surgical OTHR DR: Alfredo Lu MD ORDERED: HE Stain/12 , Gross Micro L4/4 Gross Description (Continued) D. Received in forma carlos labeled ?rectal polyp? is a fragment of pink-moore soft tissue measuring 0.5 cm in greatest dimension which is entirely submitted for microscopic examination, 1 piece in cassette D. [facility] Copies To: Alfredo Lu MD [address] [place] [address] [address] [place] [id number] Carrillo Zuluaga MD [facility] [address] [place] [phone] ----- Signed (signature on file) Booker Dutton MD 06/03/24 1558 ----- END OF REPORT Reason For Referral No Information Medications Medication SIG (Take, Route, Frequency, Duration) Notes [...] 10 MG TAKE 1 TABLET BY MO [facility] EVERY DAY Oral Once a day [...] me al Orally twice a day Active Immunizations Vaccine Route Administration Date Status Comme nts Influenza Unknown 06/12/2018 Administered Problems Problem Type SNOMED Code ICD Code Onset Dates Problem Status W/U Status Risk Notes Problem 580256139 Encounter for screening for malignant neoplasm of colon (Z12.11) Active confirmed Problem 694779289 History of adenomatous polyp of colon (Z86.010) Active confirmed Problem Diverticular disease of colon (234238374) Diverticulosis of large intestine without perforation or abscess without bleeding (K57.30) Active confirmed Problem 015200961 Gastroesophageal reflux disease without esophagitis (K21.9) Active confirmed Vital Signs Blood pressure diastolic 00 mm Hg 02/13/2024 Height 67.75 in 02/13/2024 Blood pressure systolic 00 mm Hg 02/13/2024 Weight 161 lbs 02/13/2024 BMI 24.66 kg/m2 02/13/2024 Encounters Encounter Location Date Provider Diagnosis [facility] Outpatient [address] [place] [phone] 05/29/2024 Carrillo Zuluaga Colon cancer screeni Z12.11 ; Colon polyps K63.5 ; Diverticulosis of large intestine without perforation or abscess without bleeding K57.30 and Other hemorrhoids K64.8 [facility] [address] [place] [phone] 02/13/2024 Carrillo Zuluaga Gastroesophageal ref lux disease without esophagitis K21.9 ; History of adenomatous polyp of colon Z86.010 and Encounter for screening for malignant neoplasm of colon Z12.11 [facility] [address] [facility] [address] [place] [phone] 01/16/2024 Carrillo Zuluaga [facility] [address] [phone] 02/13/2024 Carrillo Zuluaga Assessments Encounter Date Diagnosis (ICD Code) Assessment Notes Treatment Notes Treatment Clinical Notes Section Notes 05/29/2024 Colon cancer screening (ICD-10 - Z12.11) 05/29/2024 Colon polyps (ICD-10 - K63.5) 02/13/2024 History of adenomatous polyp of colon (ICD-10 - Z86.010) Overall, Esequiel appears quite well. Given his previous history of a tubular adenoma of the colon and his last colonoscopy being over 5 years ago, I did recommend a followup colonoscopy for further screening purposes. We did review the rationale for that in regard to colon cancer prevention. He was given the below instructions regarding adjustment of his diabetes medications for the procedure. Full consent is obtained for this, including risks of bleeding and perforation. In regard to his reported diarrhea this seems to be under good control with simply one Imodium every morning. I would not make any adjustments in that regimen and I don't think he needs any particular workup for that at this time. His reflux seems to be quite stable on his current regimen of the daily omeprazole. He is not having any worrisome symptoms to suggest the need for a repeat upper endoscopy at this time. Given his previous upper endoscopies I don't think any further evaluation of his reflux is required at this time. Esequiel was comfortable with this plan. Thank you again for allowing me to participate in Esequiel's care. I shall continue to keep you advised of his progress. 02/13/2024 Gastroesophageal reflux disease without esophagitis (ICD-10 - K21.9) Continue the daily omeprazole Overall, Esequiel appears quite well. Given his previous history of a tubular adenoma of the colon and his last colonoscopy being over 5 years ago, I did recommend a followup colonoscopy for further screening purposes. We did review the rationale for that in regard to colon cancer prevention. He was given the below instructions regarding adjustment of his diabetes medications for the procedure. Full consent is obtained for this, including risks of bleeding and perforation. In regard to his reported diarrhea this seems to be under good control with simply one Imodium every morning. I would not make any adjustments in that regimen and I don't think he needs any particular workup for that at this time. His reflux seems to be quite stable on his current regimen of the daily omeprazole. He is not having any worrisome symptoms to suggest the need for a repeat upper endoscopy at this time. Given his previous upper endoscopies I don't think any further evaluation of his reflux is required at this time. Esequiel was comfortable with this plan. Thank you again for allowing me to participate in Esequiel's care. I shall continue to keep you advised of his progress. 05/29/2024 Diverticulosis of large intestine without perforation or abscess without bleeding (ICD-10 - K57.30) 02/13/2024 Encounter for screening for malignant neoplasm of colon (ICD-10 - Z12.11) Do not take any Metformin the day before nor on the day of the colonoscopy Take only 1/2 of your usual Insulin the night before the colonoscopy Overall, Esequiel appears quite well. Given his previous history of a tubular adenoma of the colon and his last colonoscopy being over 5 years ago, I did recommend a followup colonoscopy for further screening purposes. We did review the rationale for that in regard to colon cancer prevention. He was given the below instructions regarding adjustment of his diabetes medications for the procedure. Full consent is obtained for this, including risks of bleeding and perforation. In regard to his reported diarrhea this seems to be under good control with simply one Imodium every morning. I would not make any adjustments in that regimen and I don't think he needs any particular workup for that at this time. His reflux seems to be quite stable on his current regimen of the daily omeprazole. He is not having any worrisome symptoms to suggest the need for a repeat upper endoscopy at this time. Given his previous upper endoscopies I don't think any further evaluation of his reflux is required at this time. Esequiel was comfortable with this plan. Thank you again for allowing me to participate in Esequiel's care. I shall continue to keep you advised of his progress. 05/29/2024 Other hemorrhoids (ICD-10 - K64.8) Plan Of Treatment Pending Test Test Name Order Date Pathology 05/29/2024 Future Test Test Name Order Date UPPER GI ENDOSCOPY 06/24/2013 COLONOSCOPY 11/12/2018 COLONOSCOPY 02/13/2024 Insurance Providers Payer Name Payer Address Payer Phone Subscriber Number Group Number Insured Name Patient Relationship to Insured Coverage Start Date Coverage End Date [facility] [address] Attn Claims MARIS [place] [id number] ESEQUIEL MCCLELLAN Self - patient is the insured Medical (General) History Medical History History ICD Code Tubular adenoma removed in 1 --had a neg colonoscopy in 09/2011 except for diverticulosis and internal hemorrhoids Gastroesophageal reflux--EGD in 06/2006-small HH, gastritis with H.pylori-Rx'd with PPI, Biaxin, Amoxicillen--EGD in 06/2013--small HH-no esophagitis, no Noel's Asthma IDDM since age 27 Hyperlipidemia Arthritis Denies AL, stroke, and renal disease Anxiety Hypertension Negative screening colonoscopy in November of 2018. Surgical History Surgery Date(Month/Year) Prostate surgery for BPH
--- OUTSIDE RECORDS SUMMARY | 2025-01-07 11:57 | XMS_ITS ---
Author Organization [facility] Address [address] [place] [address] Care Team Providers Care Ortho/Prosthetic Aide Name Role Phone Alfredo Lu MD Primary Care Provider Unavailab Carrillo Mcdowell Unavailable [phone] REASON FOR VISIT screening colon Problems Problem Type SNOMED Code ICD Code Onset Dates Problem Status W/U Status Risk Notes Problem Diverticular disease of colon (432452524) Diverticulosis of large intestine without perforation or abscess without bleeding (K57.30) Active confirmed Encounters Encounter Location Date Provider Diagnosis [facility] [address] [place], [place] [phone] 05/29/2024 Carrillo Zuluaga Colon cancer scree ino [...] Notes * JEFFREY HEAL[birth year]NDOB:11/1954 (69 yo M)Acc No.[id number]:05/29/2024 COLON WITH MAC Patient:?JEFFREY HEALY Provider:?Carrillo Zuluaga MD :1955???Age:68 Y???Sex:Male Emir e:05/29/2024 Address:[address] [place], [place] [id number] Pcp:Alfredo Lu MD Subjective: * Chief Complaints: * ???1. Screening colon. * Medical History:? Objective: * Vitals:? Assessment: * Assessment: 1.?Colon cancer screening - Z12.11 (Primary)???2.?Colon polyps - K63.5???3.?Diverticulosis of large intestine without perforation or abscess without bleeding - K57.30???4.?Other hemorrhoids - K64.8??? Plan: * Treatment: * Procedure Codes:?91857 LESIO N REMOVAL COLONOSCOPY, Modifiers: 33 * * The named appointment provid er may or may not be the originator of this progress note, and it is not deemed complete until electronically signed by the appointment provider. Sign off status: Pending * Provider:?Carrillo Zuluaga MD Date:? 024 Generated for Scooter richmond/Ava/eTransmitting on:?01/07/2025 11:56 AM EDT
--- OUTSIDE RECORDS SUMMARY | 2025-01-07 11:57 | XMS_ITS ---
Author Organization [facility] Address [address] [place] [address] Care Team Providers Care Chief Accountant Name Role Phone Alfredo Lu MD Primary Care Provider UnavailCarrillo Alberts Unavailable [phone] Allergies No Known Allergies REASON FOR VISIT Patient presents today for a COLON SCREENING Medications Medication SIG (Take, Route, Frequency, Duration) [...] A DAY Nasal Twice a day Active Vital Signs Blood pressure systolic 00 mm Hg 02/13/20 24 Blood pressure diastolic 00 mm Hg 024 Height 67.75 in 02/13/2024 Weight 161 lbs 02/13/2024 BMI 24.66 kg/m2 02/13/2024 Encounters Encounter Location Date Provider Diagnosis [facility] [address] [place] [address] 02/13/2024 Carrillo Zuluaga Gastroesophageal ref lux disease without esophagitis K21.9 ; History of adenomatous polyp of colon Z86.010 and Encounter for screening for malignant neoplasm of colon Z12.11 Assessments Encounter Date Diagnosis (ICD Code) Assessment Notes Treatment Notes Treatment Clinical Notes Section Notes 02/13/2024 Gastroesophageal reflux disease without esophagitis [...] keep you advised of his progress. 02/13/2024 History of adenomatous polyp of colon [...] keep you advised of his progress. 02/13/2024 Encounter for screening for malignant neoplasm [...] to keep you advised of his progress. Plan Of Treatment Treatment Notes Assessment Notes Gastroesophageal reflux dise [...] Follow Up: prn, Reason: Progress Notes * JEFFREY HEALYNDOB:11/1954 (68 yo M)Acc No.[id number]:02/13/2024 Progress Notes Patient:?JEFFREY HEALY Provider:?Carrillo Zuluaga MD :1955???Age:68 Y???Sex:Male Emir e:02/13/2024 Address:[address] [place] [address] Pcp:Alfredo Lu MD Subjective: * Chief Complaints: * ???Patient presents today fo r a COLON SCREENING * HPI: ???incontinence:? I saw Esequiel in consultation today in regard to his chronic gastroesophageal reflux, personal history of tubular adenomas of the colon and need for colorectal cancer screening, and diarrhea. ?I last saw Esequiel in November of 2018, at which time he underwent a followup screening colonoscopy that was negative for any polyps. He reports he has basically been feeling well. He describes some loose stools in the morning but has found out that by using one Imodium every morning this has taken care of that problem. He has found that by using one Imodium every morning he has a formed stool and no problems later in the day. He denies any hematochezia nor melena. He denies abdominal pain or jaundice. He has lost between 10 and 20 pounds on a purposeful diet since I last saw him. He reports that this has helped him to feel better and has helped his diabetes be in better control with less medication. ?He does remain on one omeprazole daily with good relief of heartburn symptoms. He denies any symptoms such as dysphagia, early satiety, nausea, vomiting, or anorexia. ?He denies any known family history of colorectal cancer. ?Laboratories earlier this year revealed normal chemistries and renal function, a normal CBC, and normal liver enzymes. * ROS:?General/Constitutional:?Change in appetite?denies.?Chills?denies.?Fatigue?denies.?Ophthalmologic:?Patient denies? Negative..?ENT:?Patient denies?Negative..?Respiratory:?Patient denies?No coughing/hemoptysis..?Cardiovascular:?Patient denies? No chest pain/orthopnea..?Gastrointestinal:?Comments?See HPI for details.?Genitourinary:?Patient denies? No dysuria/hematuria..?Musculoskeletal:?Patient denies? No specific arthralgias/myalgias..?Skin:?Patient denies?No rash/pruritus..?Neurologic:?Patient denies? No headaches/seizures..?Psychiatric:?Patient denies?Negative..? * Medical History:? * Surgical History:?Prostate s urgery for BPH * Hospitalization/Major Diagno stic Procedure:?No Hospitalization History. * Family History:?Father: dece ased, diagnosed with Heart disease, HTN (hypertension).?Mother: , diagnosed with Diabetes.? No colorectal cancer. * Social History:?Tobacco Use:?Tobacco Use/Smoking?Are you a: former smoker , How long has it been since you last smoked?: > 10 years.?Drugs/Alcohol:?Alcohol Screen?Points: 0, Interpretation: Negative.?Miscellaneous:?Caffeine: 1-2 cups per day. Marital status: . Occupation: Retired. ???He stopped smoking over 10 years ago, and denies any significant amounts of alcohol. * Medications:?TakingImodium A -D 2 MG Capsule 1 capsule as needed Orally Four times a dayCalcium Citrate 500 MG Capsule 1 tablet Orally Once a daymetFORMIN HCl 1000 MG Tablet 1 tablet with a meal Orally twice a daytraZODone HCl 100 MG Tablet 1 tablet at bedtime as needed Orally Once a dayMontelukast Sodium 10 MG Tablet 1 tablet Orally Once a dayTamsulosin HCl 0.4 MG Capsule Extended Release 1 capsule Orally Once a dayOmeprazole 20 MG Capsule Delayed Release 1 capsule Orally Once a dayTestosterone Cypionate 200 MG/ML Solution (Schedule III Drug) INJECT 1 ML EVERY 2 WEEKS Intramuscular Losartan Potassium-HCTZ 50-12.5 MG Tablet TAKE 1 TABLET BY MOUTH EVERY DAY Oral Once a dayLoratadine 10 MG Tablet TAKE 1 TABLET BY MOUTH EVERY DAY Oral Once a dayCetirizine HCl 10 MG Tablet TAKE 1 TABLET BY MOUTH EVERY DAY Oral Once a dayFlovent HFA 110 MCG/ACT Aerosol INHALE 2 PUFFS INTO THE LUNGS TWICE DAILY Inhalation Fluticasone Propionate 50 MCG/ACT Suspension ONE SPRAY EACH NOSTRIL NASALLY TWICE A DAY Nasal Twice a dayVentolin HFA 108 (90 Base) MCG/ACT Aerosol Solution Inhalation Rosuvastatin Calcium 5 MG Tablet Oral Levemir 100 UNIT/ML Solution Subcutaneous Albuterol Sulfate HFA 108 (90 Base) MCG/ACT Aerosol Solution Inhalation Taking Imodium A-D 2 MG Capsule 1 capsule as needed Orally Four times a dayTaking Calcium Citrate 500 MG Capsule 1 tablet Orally Once a dayTaking metFORMIN HCl 1000 MG Tablet 1 tablet with a meal Orally twice a dayTaking traZODone HCl 100 MG Tablet 1 tablet at bedtime as needed Orally Once a dayTaking Montelukast Sodium 10 MG Tablet 1 tablet Orally Once a dayTaking Tamsulosin HCl 0.4 MG Capsule Extended Release 1 capsule Orally Once a dayTaking Omeprazole 20 MG Capsule Delayed Release 1 capsule Orally Once a dayTaking Testosterone Cypionate 200 MG/ML Solution (Schedule III Drug) INJECT 1 ML EVERY 2 WEEKS Intramuscular Taking Losartan Potassium-HCTZ 50-12.5 MG Tablet TAKE 1 TABLET BY MOUTH EVERY DAY Oral Once a dayTaking Loratadine 10 MG Tablet TAKE 1 TABLET BY MOUTH EVERY DAY Oral Once a dayTaking Cetirizine HCl 10 MG Tablet TAKE 1 TABLET BY MOUTH EVERY DAY Oral Once a dayTaking Flovent HFA 110 MCG/ACT Aerosol INHALE 2 PUFFS INTO THE LUNGS TWICE DAILY Inhalation Taking Fluticasone Propionate 50 MCG/ACT Suspension ONE SPRAY EACH NOSTRIL NASALLY TWICE A DAY Nasal Twice a dayTaking Ventolin HFA 108 (90 Base) MCG/ACT Aerosol Solution Inhalation Taking Rosuvastatin Calcium 5 MG Tablet Oral Taking Levemir 100 UNIT/ML Solution Subcutaneous Taking Albuterol Sulfate HFA 108 (90 Base) MCG/ACT Aerosol Solution Inhalation Not-Taking/PRNLantus 100 UNIT/ML Solution INJECT 20 UNIT SUBCUTANEOUSLY EVERY EVENING AT 7 PM Subcutaneous Glimepiride 2 MG Tablet 1 tablet with breakfast or the first main meal of the day Orally Once a dayNot-Taking/PRN Lantus 100 UNIT/ML Solution INJECT 20 UNIT SUBCUTANEOUSLY EVERY EVENING AT 7 PM Subcutaneous Not-Taking/PRN Glimepiride 2 MG Tablet 1 tablet with breakfast or the first main meal of the day Orally Once a dayDiscontinuedVitamin D 1000 UNIT Tablet 1 capsule Orally Once a dayNovoLOG 100 UNIT/ML Solution as directed Subcutaneous every dayMirtazapine 15 MG Tablet 1 tablet at bedtime Orally Once a dayVESIcare 10 MG Tablet TAKE 1 TABLET BY MOUTH EVERY DAY Oral Once a dayCelecoxib 200 MG Capsule TAKE ONE CAPSULE BY MOUTH DAILY Oral Once a dayMiraLax (colon prep) 8.3 ounce ((238) grams mixed with Gatorade or Crystal Light orally begin at 5:00 p.m. the day before the procedureDulcolax (colon prep) 5 MG Tablet Delayed Release take at 3:00 p.m and 7:00p.m. Orally two tablets twice a day for one dayMedication List reviewed and reconciled with the patientDiscontinued Vitamin D 1000 UNIT Tablet 1 capsule Orally Once a dayDiscontinued NovoLOG 100 UNIT/ML Solution as directed Subcutaneous every dayDiscontinued Mirtazapine 15 MG Tablet 1 tablet at bedtime Orally Once a dayDiscontinued VESIcare 10 MG Tablet TAKE 1 TABLET BY MOUTH EVERY DAY Oral Once a dayDiscontinued Celecoxib 200 MG Capsule TAKE ONE CAPSULE BY MOUTH DAILY Oral Once a dayDiscontinued MiraLax (colon prep) 8.3 ounce ((238) grams mixed with Gatorade or Crystal Light orally begin at 5:00 p.m. the day before the procedureDiscontinued Dulcolax (colon prep) 5 MG Tablet Delayed Release take at 3:00 p.m and 7:00p.m. Orally two tablets twice a day for one dayMedication List reviewed and reconciled with the patient * Allergies:?N.K.D.A.yes[Aller gies Verified] Objective: * Vitals:?Wt: 161 lbs, Ht: 67. 75 in, BMI:24.66 Index, BP: 00/00 mm Hg. * Examination: ???General Examination: ?GENERAL APPEARANCE:?pleasant, well nourished, well developed, in no acute distress.?EYES:?sclera non-icteric.?ORAL CAVITY:?mucosa moist.?NECK/THYROID:?no cervical lymphadenopathy, neck supple.?SKIN:?nonjaundiced, no spider angiomata..?HEART:?S1, S2 normal.?LUNGS:?clear to auscultation bilaterally.?ABDOMEN:?normal bowel sounds, no guarding or rigidity, no hepatosplenomegaly, no masses palpable, soft, nontender, nondistended..?EXTREMITIES:?no edema.?NEUROLOGIC:?alert and oriented.? Assessment: * Assessment: 1.?Gastroesophageal reflux d isease without esophagitis - K21.9 (Primary)?2.?History of adenomatous polyp of colon - Z86.010?3.?Encounter for screening for malignant neoplasm of colon - Z12.11? Overall, Esequiel appears quit e well. Given his previous history of a [...] to keep you advised of his progress. Plan: * Treatment: 2.?History of adenomatous po lyp of colon?Procedure: COLONOSCOPY (Ordered for 02/13/2024) 3.?Encounter for screening for malignant neoplasm of colon?Procedure: COLONOSCOPY (Ordered for 02/13/2024)* with MAC scheduled at [facility] on 05-29-2024 at 9:30 a.m No metformin the day before or morning of the procedure. Take 1/2 the regular dose of insuran the night before the procedure Notes: Do not take any Metformin the day before nor on the day of the colonoscopy Take only 1/2 of your usual Insulin the night before the colonoscopy?? * Procedure Codes:?3017F COLOR ECTAL CA SCREEN DOC [id number] TOBACCO NON-[id number] BP SCR NOT PRFRM REC REASON NOS * Follow Up:?prn * * Sign off status: Completed true * Provider:?Carrillo Zuluaga MD Date:? 024 Generated for Scooter richmond/Ava/Levismitting on:?01/07/2025 11:56 AM EDT History and Physical Notes * HPI (History of Present Illness) Category Sub-Category Detail Notes Category Not es incontinence I saw Esequiel in consultation today in regard to his chronic gastroesophageal reflux, personal history of tubular adenomas of the colon and need for colorectal cancer screening, and diarrhea. I last saw Esequiel in November of 2018, at which time he underwent a followup screening colonoscopy that was negative for any polyps. He reports he has basically been feeling well. He describes some loose stools in the morning but has found out that by using one Imodium every morning this has taken care of that problem. He has found that by using one Imodium every morning he has a formed stool and no problems later in the day. He denies any hematochezia nor melena. He denies abdominal pain or jaundice. He has lost between 10 and 20 pounds on a purposeful diet since I last saw him. He reports that this has helped him to feel better and has helped his diabetes be in better control with less medication. He does remain on one omeprazole daily with good relief of heartburn symptoms. He denies any symptoms such as dysphagia, early satiety, nausea, vomiting, or anorexia. He denies any known family history of colorectal cancer. Laboratories earlier this year revealed normal chemistries and renal function, a normal CBC, and normal liver enzymes. Examination Category Sub-Category Detail Notes Category Not es General Examination GENERAL APPEARANCE: pleasant , well [...]
--- OUTSIDE RECORDS SUMMARY | 2025-01-07 11:57 | XMS_ITS ---
Author Organization [facility] Address [address] [place] [address] Care Team Providers Care Hat Blocking Operator Name Role Phone Alfredo Lu MD Primary Care Provider Unavailab Carrillo Mcdowell [phone] REASON FOR VISIT please send colon prep Medications Medication SIG (Take, Route, Frequency, Duration) [...] Active Encounters Encounter Location Date Provider Diagnosis [facility] [address] [place] [id number] 02/13/2024 Carrillo Zuluaga Plan Of Treatment Medication Medication Name Sig Start Date Stop [...] before the procedure for 1 day 02/13/2024 Progress Notes * JEFFREY HEALYNDOB:11/1954 (68 yo M)Acc No.[id number]:02/13/2024 Patient:?JEFFREY HEALY :1955???Age:68 Y???Sex:Male Address:[address] [place] [address] * Refills? Start MiraLax (colon prep) Powder, 17 GM/SCOOP, Orally, 1, 1 238 Gm bottle mixed with Gatorade or Crystal Light, begin at 5:00 p.m. the day before the procedure, 1 day, Refills=0 Start Dulcolax (colon prep) Tablet Delayed Release, 5 MG, Orally, 4, take at 3:00 p.m and 7:00p.m., two tablets twice a day for one day, 1 day, Refills=0 Start Imodium A-D Tablet, 2 MG, Orally, 60, 1 or 2, Every 4 to 6 hours as needed for diarrhea, 30 days, Refills=6 * true * Date:? Generated for Scooter richmond/Ava/Itzitting on:?01/07/2025 11:56 AM EDT
== END 2025-01-07 10:54 | disposition home or self-care (01) ==
LOC: HO.HUSH 10:14
PROVIDERS: PCP Family Medicine; Visit Provider Urology
DX: N40.0 Benign prostatic hyperplasia without lower urinary tract symptoms (principal); N52.9 Male erectile dysfunction, unspecified; E29.1 Testicular hypofunction
CPT/HCPCS: 99214

== ENCOUNTER → 2025-01-07 10:13 | Outpatient (BNVA) | payer OTHER, SELFPAY | PROVIDERS: PCP Family Medicine; Visit Provider Urology | DX: N40.1 Benign prostatic hyperplasia with lower urinary tract symptoms (principal); E29.1 Testicular hypofunction; E11.9 Type 2 diabetes mellitus without complications; N39.43 Post-void dribbling; N52.9 Male erectile dysfunction, unspecified; E34.9 Endocrine disorder, unspecified; R79.89 Other specified abnormal findings of blood chemistry | CPT/HCPCS: 99212 ==

== ENCOUNTER → 2025-01-20 10:55 | Outpatient (BNVA) | payer OTHER, SELFPAY | PROVIDERS: PCP Family Medicine; Visit Provider Urology ==

== ENCOUNTER 2025-03-08 09:52 | Outpatient (AMB) | payer OTHER, SELFPAY ==
[2025-03-08 09:59] VITALS: BP 124/48; PULSE 67; O2SAT 96; BMI 26.9
--- NOTE | 2025-03-08 09:59 | A.OFFVIS_ITS ---
Vital Signs 03/08/25 09:59 Height 5 ft 7 in Weight 172 lb BMI 26.9 BP 124/48 L Blood Pressure Location Lt brachial Position Sitting Pulse 67 Pulse Source Pulse Oximeter Pulse Oximetry (%) 96 Oxygen Delivery Method Room Air Intake Visit Reasons: copd Intake Note: pt is here for follow up and states he is feeling not too good with breathing at times, am is very bad, wheezing and coughing with mucous, but he is having an issue with getting his ventolin. can you please send in for him Band Sawmill Operator Required: No Allergies REAGAN Inhibitors Allergy (Mild, Verified 03/08/25 10:18) Rash bupropion [From Wellbutrin] Allergy (Unknown, Verified 03/08/25 10:18) Unknown simvastatin Adverse Reaction (Intermediate, Verified 03/08/25 10:18) myalgia Medication List - Last Reconciled 03/08/25 by Cristóbal Gabriel MD albuterol sulfate 90 mcg/actuation 1 puff inhalation QID PRN 30 days blood sugar diagnostic As directed calcium citrate 500 mg PO DAILY cetirizine 10 mg PO DAILY cyclobenzaprine 5 mg PO Q8H PRN 5 days fluticasone propion-salmeterol 250-50 mcg/dose (Wixela Inhub) 1 ea PO BID fluticasone propionate 50 mcg/actuation 1 spray intranasal BID PRN insulin detemir U-100 (Levemir U-100 Insulin) 20 units subcut QPM insulin syringe-needle U-100 As directed lancets As directed loperamide (Imodium A-D) 2 mg PO Q6H PRN losartan-hydrochlorothiazide 50-12.5 mg 1 tab PO DAILY metformin 1,000 mg PO BID metoprolol succinate ER 50 mg PO QAM montelukast 10 mg PO DAILY needle (disp) 18 G (BD Regular Bevel [place]) As directed - draw up testosterone needle (disp) 23 gauge (BD Regular Bevel [place]) Inject testosterone subcutaneous omalizumab (Xolair) 300 mg (2 mL) subcut Q4W 12 months omeprazole 20 mg PO DAILY rosuvastatin 5 mg PO DAILY syringe (disposable) (BD Luer-Stefan Syringe) Testosterone injection weekly syringe with needle As directed weekly syringe with needle, safety Qweekly tadalafil 10 mg PO DAILY 90 days tamsulosin 0.4 mg PO DAILY 90 days testosterone cypionate (Depo-Testosterone) 80 mg (0.4 mL) subcut QWEEK 4 weeks trazodone 100 mg PO BEDTIME Do you need a note to return to daycare/school/sports/work: No HPI HPI copd: Details: THIS 69 YEARS OLD VERY PLEASANT GENTLEMAN IS HERE FOR HIS ROUTINE FOLLOW-UP AFTER 4 MONTHS. OVERALL HE HAS BEEN DOING WELL AND THERE HAS BEEN NO EMERGENCY VISIT HOSPITALIZATION IN THE LAST 4 MONTHS. HE DOES HAVE INCREASED COUGH AND SOME WHEEZING IN THE MORNING HOURS, WHICH IS RELIEVED BY USING ALBUTEROL INHALER. NOW HE HAS BEEN OUT OF HER ALBUTEROL INHALER AND HAS NOT USED IT FOR ABOUT 3-4 WEEKS. HE CONTINUES TO BE ON HIS MEDS REGULARLY. STILL HAS SOME NASAL CONGESTION AND RIGHT SIDE OF THE NOSE REMAINS MOSTLY BLOCKED. HIS DAY-TO-DAY ACTIVITY IS NORMAL AND HE IS WALKING AROUND IN THE HOUSE WELL OUTDOORS. [facility] Medical History COVID-19 COPD (chronic obstructive pulmonary disease) Arthritis Hyperlipidemia Diabetes GERD (gastroesophageal reflux disease) Diverticulosis Tubular adenoma Allergic rhinitis Hypogonadism in male Urge incontinence Hypogonadism male BPH w/o urinary obs/LUTS Asthma High cholesterol IDDM (insulin dependent diabetes mellitus) HTN (hypertension) Surgical History History of esophagogastroduodenoscopy (EGD) H/O colonoscopy History of prostate surgery Social History Are you a primary medicare interviewer to a significant other at home: No Do you presently have visiting nurse or other home services: No Patient Tobacco Use Status: Former Tobacco user Tobacco use type: Cigarette Years Smoked: 30 Advance Directives Date on File: 06/30/20 Review of Systems Const All systems reviewed & are unremarkable except as noted in HPI and below Eyes Reports no additional complaints ENT Reports nasal congestion (Mild intermittent mostly in a.m.) Card Denies chest pain, Reports rapid heart rate (If he uses ProAir), Denies irregular heart rhythm and Denies leg edema Resp Reports as per HPI GI Reports heartburn (Being treated with omeprazole) Reports erectile dysfunction Musc Reports no additional complaints Skin/Breast Reports system reviewed and no additional complaints, except as documented Neuro Reports no additional complaints Psych Reports no additional complaints Physical Exam Const General: healthy appearing, comfortable, no acute distress, alert and awake Orientation/consciousness: patient oriented x3 HEENT Head: Yes normal to inspection General nose exam: No nasal polyps present, mucous membranes and turbinates abnormal (Moderately enlarged nasal turbinates), No nasal discharge present and Other nasal findings present (Moderate amount of nasal congestion is noted) Face and sinus: Yes sinuses nontender Mouth: oropharynx normal Throat: Yes posterior oropharynx normal Eyes General: appearance normal, both eyes and all related structures Neck Neck: Yes normal visual inspection, Yes no lymphadenopathy, Yes trachea midline and Yes no JVD Thyroid: Thyroid normal Chest Chest palpation & inspection: normal inspection of the chest, normal palpation of entire chest wall and no tenderness Resp Other: Percussion note resonant, breath sounds are distant with prolonged expiratory phase On auscultation, THERE ARE INSPIRATORY WHEEZES IN THE UPPER PART OF THE CHEST ON BOTH SIDES. Cardio Palpation: normal PMI Rate: regular rate Rhythm: regular rhythm Heart sounds: no gallops and no murmurs GI Palpation (GI): Soft to palpation, nontender, No hepatosplenomegaly present and no masses Auscultation: normal bowel sounds Back/Spine/Pelvis Thoracic/Lumbar Spine: thoracic and lumbar spine normal to inspection Skin General skin exam: no rashes or lesions noted Neuro General: patient oriented x3 and no focal motor deficits Cranial nerves: Yes CN's II-XII intact bilaterally Extrem General: Yes normal to inspection, Yes no clubbing, cyanosis or edema and Yes no calf tenderness Psych Appearance: grossly normal and well kempt Speech and movement: Normal speech and movement present Assessment & Plan Assessment & Plan (1) Asthma-COPD overlap syndrome: Comment: THIS GENTLEMAN HAS LONGSTANDING HISTORY OF BRONCHIAL ASTHMA AND NOW HAS PHASE INTO COPD. IS ASTHMATIC COMPONENT IS MOSTLY DUE TO ENVIRONMENTAL ALLERGIES. OVERALL IT IS WELL CONTROLLED EXCEPT FOR MILD INTERMITTENT EXACERBATIONS. CURRENTLY HE DOES COMPLAIN OF INCREASED COUGH AND WHEEZING ESPECIALLY IN THE MORNING HOURS. Code(s): J44.9 - Chronic obstructive pulmonary disease, unspecified Category: Medical Plan: ADVISED TO CONTINUE USING WIXELA 250-51 INHALATION B.I.D. REGULARLY. ALBUTEROL HFA, 2 PUFFS Q 4-6 HOURS P.R.N.. PRESCRIPTION IS RENEWED MONTELUKAST. 10 MG DAILY XOLAIR 300 MCG SUBCU Q.4 WEEKS (2) Allergic rhinitis: Comment: CHRONIC ALLERGIC RHINITIS, PERENNIAL, SECONDARY TO MULTIPLE ENVIRONMENTAL ALLERGIES. CONTROLLED AT THIS TIME WELL BUT HE STILL CONTINUES TO HAVE SOME DEGREE OF NASAL CONGESTION, AND URGE TO CLEAR MUCUS. USE OF STEAM INHALATIONS ESPECIALLY IN THE MORNING IS HELPFUL. Code(s): J30.9 - Allergic rhinitis, unspecified Category: Medical Plan: CONTINUES XOLAIR THERAPY CONTINUE MONTELUKAST 10 MG DAILY USE SALINE NASAL SPRAY P.R.N.. USE CETIRIZINE 10 MG ONCE A DAY P.R.N. Coding Level of Care Code Est Pt Level 3 (89161) Diagnoses Asthma-COPD overlap syndrome J44.9 Allergic rhinitis J30.9
--- OUTSIDE RECORDS SUMMARY | 2025-03-08 10:41 | XMS_ITS | Patient Health Record ---
Author Organization [facility] Address [address] [place] [address] Care Team Providers Care Biodiesel Product Manager Name Role Phone Aly SANZ, Alfredo Primary Care Provider Unavailab Carrillo Mcdowell Unavailable [phone] Allergies No Known Allergies Results Component Value Reference Range Notes Glucose, Whole Blood Reviewed date:05/29/2024 04:34:37 PM Interpretation: Performing Lab:[facility], [address] [place] [phone] Notes/Report: Glucose, Whole Blood 151 60-115 mg/dL METER # : [id number] Pathology (Not yet reviewed by provider) Interpretation: Performing Lab:[facility], [address] [place] [phone] Notes/Report: ----- Name: Werner Ariel Post Age/Sex: 68/M : 1955 Unit#: [id number] Attend Dr: Carrillo Zuluaga MD Re05/29/24 Status : [facility] Location: [facility] Disch: ----- SPEC : [id number] RECD : 05/29/24 STATUS: MAHENDRA ALCANTAR NUM: [id number] ERICKA: 05/29/[address] [facility] [address]: Carrillo Zuluaga MD ENTERED: 05/29/24 SP [...] CONTINUED ON NEXT PAGE ----- Name: Ariel Mcclellan Age/Sex: 68/M : 1955 Unit#: [id number] Attend Dr: Carrillo Zuluaga MD Re05/29/24 Status : [facility] Location: [facility] Disch: ----- SPEC : [id number] RECD : 05/29/24-1148 STATUS: [facility] NUM: [id number] ERICKA: 05/29/24-0 [facility] DR: Carrillo Zuluaga MD ENTERED: 05/29/24- 12 SP TYPE: Surgical OTHR DR: Alfredo Lu MD ORDERED: HE Stain/12 , Gross Micro L4/4 Gross Description (Continued) D. Received in forma carlos labeled ?rectal polyp? is a fragment of pink-moore soft tissue measuring 0.5 cm in greatest dimension which is entirely submitted for microscopic examination, 1 piece in cassette [facility] Copies To: Alfredo Lu MD [address] [place] [address] [address] [place] [id number] Carrillo Zuluaga MD [facility] [address] [place] [id number] ----- Signed (signature on file) Booker Dutton [...] 10 MG TAKE 1 TABLET BY MO [facility] EVERY DAY Oral Once a day [...] Problem Status W/U Status Risk Notes Problem 839878074 Encounter for screening for malignant neoplasm of colon (Z12.11) Active confirmed Problem 762676961 History of adenomatous polyp of colon (Z86.010) Active confirmed Problem Diverticular disease of colon (898234494) Diverticulosis of large intestine without perforation or abscess without bleeding (K57.30) Active confirmed Problem 930524839 Gastroesophageal reflux disease without esophagitis (K21.9) Active confirmed Encounters Encounter Location Date Provider Diagnosis [facility] [address] [place] [id number] 05/29/2024 Carrillo Zuluaga Colon cancer cierae ino Z12.11 ; Colon polyps K63.5 ; [...] Insured Coverage Start Date Coverage End Date [facility] [address] Attn Claims MARIS Good [id number] WERNER SOTO ESEQUIEL Self - patient is the insured Medical (General) History Medical History History ICD Code Tubular adenoma removed in 1 --had a neg colonoscopy in 09/2011 except for diverticulosis and internal hemorrhoids Gastroesophageal reflux--EGD in 06/2006-small HH, gastritis with H.pylori-Rx'd with PPI, Biaxin, Amoxicillen--EGD in 06/2013--small HH-no esophagitis, no Noel's Asthma IDDM since age 27 Hyperlipidemia Arthritis Denies SD, stroke, and renal disease Anxiety Hypertension Negative screening colonoscopy in November of 2018. Surgical History Surgery Date(Month/Year) Prostate surgery for BPH
== END 2025-03-08 10:18 | disposition home or self-care (01) ==
LOC: HO.HPS 09:52
PROVIDERS: PCP Family Medicine; Visit Provider Internal Medicine
DX: J44.9 Chronic obstructive pulmonary disease, unspecified (principal); J30.9 Allergic rhinitis, unspecified
CPT/HCPCS: 99213

== ENCOUNTER → 2025-03-08 09:52 | Outpatient (BNVA) | payer OTHER, SELFPAY | PROVIDERS: PCP Family Medicine; Visit Provider Internal Medicine | DX: J44.9 Chronic obstructive pulmonary disease, unspecified (principal); R09.81 Nasal congestion; J30.9 Allergic rhinitis, unspecified | CPT/HCPCS: 99212 ==

== ENCOUNTER 2025-03-16 08:46 | Outpatient (AMB) | payer OTHER, SELFPAY ==
--- NOTE | 2025-03-16 08:56 | MHC.PC.OV ---
Vital Signs 03/16/25 08:58 Height 5 ft 7 in Weight 175 lb BMI 27.4 BP 124/68 Blood Pressure Location Lt brachial Position Sitting Intake Visit Reasons: establish care Electrical Accessories Assembler Required: No Accompanied by: Self / Same As Patient Allergies REAGAN Inhibitors Allergy (Mild, Verified 03/16/25 09:18) Rash bupropion [From Wellbutrin] Allergy (Unknown, Verified 03/16/25 09:18) Unknown simvastatin Adverse Reaction (Intermediate, Verified 03/16/25 09:18) myalgia Medication List - Last Reconciled 03/16/25 by Kate Saavedra MD albuterol sulfate 90 mcg/actuation 2 puffs inhalation QID PRN 30 days blood sugar diagnostic As directed calcium citrate 500 mg PO DAILY cetirizine 10 mg PO DAILY cyclobenzaprine 5 mg PO Q8H PRN 5 days fluticasone propion-salmeterol 250-50 mcg/dose (Wixela Inhub) 1 ea PO BID fluticasone propionate 50 mcg/actuation 1 spray intranasal BID PRN insulin detemir U-100 (Levemir U-100 Insulin) 20 units subcut QPM insulin syringe-needle U-100 As directed lancets As directed loperamide (Imodium A-D) 2 mg PO Q6H PRN losartan-hydrochlorothiazide 50-12.5 mg 1 tab PO DAILY metformin 1,000 mg PO BID metoprolol succinate ER 50 mg PO QAM montelukast 10 mg PO DAILY needle (disp) 18 G (BD Regular Bevel Sebastian) As directed - draw up testosterone needle (disp) 23 gauge (BD Regular Bevel Sebastian) Inject testosterone subcutaneous omalizumab (Xolair) 300 mg (2 mL) subcut Q4W 12 months omeprazole 20 mg PO DAILY rosuvastatin 5 mg PO DAILY syringe (disposable) (BD Luer-Stefan Syringe) Testosterone injection weekly syringe with needle As directed weekly syringe with needle, safety Qweekly tadalafil 10 mg PO DAILY 90 days tamsulosin 0.4 mg PO DAILY 90 days testosterone cypionate (Depo-Testosterone) 80 mg (0.4 mL) subcut QWEEK 4 weeks trazodone 100 mg PO BEDTIME Tobacco use date assessed: 03/16/25 Fall risk assessment: No Falls in past year Last assessed Fall Risk: 03/16/25 Dental Screening Dental Screen Date: 03/16/25 Did you have a dental visit in the last 12 months?: Yes Did you have a dental problem in the last 6 months where you did not have access to dental care?: No Was dental information given to patient?: Patient has dentist HPI HPI Comments History of Present Illness Details The patient is a 69-year-old male presenting for established care and management of chronic conditions. He has a history of Chronic Obstructive Pulmonary Disease (COPD) and uses Wixela for management. He reports wheezing and has been self-medicating with additional inhaler use. The patient has Diabetes Mellitus, with an A1c of 8.1, indicating suboptimal control. He takes metformin and insulin, with recent adjustments to increase insulin dosage due to elevated blood glucose levels. Hypertension is managed with losartan and hydrochlorothiazide. He has a history of hyperlipidemia, managed with rosuvastatin. The patient experiences erectile dysfunction and uses tadalafil. He reports a history of depression, previously managed with trazodone, but denies current depressive symptoms. The patient has a history of prostate surgery and underwent a colonoscopy last year, which revealed hyperplastic polyps and a tubular adenoma. Follow-up is recommended in five years. 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 [facility] Medical History (Updated 03/16/25 @ 12:40 by Kaet Saavedra MD) COVID-19 COPD (chronic obstructive pulmonary disease) Arthritis Hyperlipidemia Diabetes GERD (gastroesophageal reflux disease) Diverticulosis Tubular adenoma Allergic rhinitis Hypogonadism in male Urge incontinence Hypogonadism male BPH w/o urinary obs/LUTS Asthma High cholesterol IDDM (insulin dependent diabetes mellitus) HTN (hypertension) Surgical History History of esophagogastroduodenoscopy (EGD) H/O colonoscopy History of prostate surgery Family History Family/Other Mental health disorder Social History Housing: Apartment Are you a primary animal care giver to a significant other at home: No Do you presently have visiting nurse or other home services: No Alcohol intake: never Patient Tobacco Use Status: Former Tobacco user Tobacco use type: Cigarette Years Smoked: 30 e-Cigarette/Vaping Use: Never Used Second Hand Smoke Exposure: No Advance Directives Date on File: 06/30/20 service: No Current occupational status: retired and disabled Cognitive needs: No Hearing needs: No Vision needs: Yes Questionnaire PHQ-9 Over the last 2 weeks, how often have you been bothered by any of the following problems? 1. Little interest or pleasure in doing things: nearly every day 2. Feeling down, depressed, or hopeless: several days 3. Trouble falling or staying asleep, or sleeping too much: several days 4. Feeling tired or having little energy: more than half the days 5. Poor appetite or overeating: not at all 6. Feeling bad about yourself - or that you are a failure or have let yourself or your family down: not at all 7. Trouble concentrating on things, such as reading the newspaper or watching television: not at all 8. Moving or speaking so slowly that other people could have noticed. Or the opposite - being so fidgety or restless that you have been moving around a lot more than usual: not at all 9. Thoughts that you would be better off or of hurting yourself in some way: not at all Total score: 7 Depression Screening Interpretation: Positive Depression Screening Follow-up: Existing condition, In treatment and Follow-up Visit Requested Depression Screening Done: Yes 95841 - PHQ-9 Billing: Yes Source: Developed by Drs. Carrillo Zabala, Nita Guzmán, Carlton Ling and colleagues, with an educational jacob from [employer]. Thrive Questionnaire Date Thrive assessed: 03/16/25 I am a: Patient What is your living situation today?: I have a steady place to live Within the past 12 months, did the food you bought not last and you didn't have the money to get more?: Never true Within the past 12 months, did you worry whether your food would run out before you got money to buy more?: I choose not to answer this question Do you have trouble paying for medicines?: No Do you have trouble getting transportation to medical appointments?: No Do you have trouble paying your heating and electricity bill?: No Do you have trouble taking care of your child, family member or friend?: No Do you have trouble with day-to-day activities such as bathing, preparing meals, shopping, managing finances, etc.?: I choose not to answer this question Are you currently unemployed and looking for a job?: No Are you interested in more education?: No Please select the resources that you would like help with: None Currently or been in a relationship where the following occur: I choose not to answer THRIVE Score: 0 AUDIT C Alcohol Use Questionnaire (AUDIT-C) 1. How often do you have a drink containing alcohol?: Never Total Score: 0 Score Reviewed/Action Taken: No CLARA-7 AMB Questionnaire CLARA-7 Date CLARA - 7 assessed: 03/16/25 Feeling nervous, anxious, or on edge: 0 = Not at all Not being able to stop or control worryin = Not at all Worrying too much about different things: 0 = Not at all Trouble relaxin = Not at all Being so restless that it is hard to sit still: 0 = Not at all Becoming easily annoyed or irritable: 0 = Not at all Feeling afraid as if something awful might happen: 0 = Not at all Total CLARA-7 score (0-4 normal; 5-9 mild; 10-14 moderate; 15-21 severe): 0 Source: Developed by Drs. Carrillo Zabala, Nita Guzmán, Carlton Ling and colleagues, with an educational jacob from [employer]. CLARA-7 Assessment Billing CLARA-7 Assessment Tool: CLARA-7 Assessment 81162 Review of Systems Const All systems reviewed & are unremarkable except as noted in HPI and below Card Denies chest pain at rest, Denies chest pain with activity, Denies edema, Denies irregular heart rhythm, Denies claudication, Denies dyspnea, Denies dyspnea on exertion, Denies orthopnea, Denies paroxysmal nocturnal dyspnea and Denies slow heart rate Resp Denies cough, Denies dyspnea and Denies dyspnea on exertion GI Denies abdominal pain, Denies change in bowel habits, Denies excessive flatus, Denies nausea and Denies vomiting Denies urinary hesitancy, Denies urinary incontinence and Denies urinary urgency Musc Denies atrophy, Denies deformity and Denies limited range of motion Skin/Breast Denies bleeding lesions, Denies changing lesions and Denies rash Physical exam (Primary Care) Vital Signs: Last Vital Signs BP 124/68 03/16/25 08:58 BMI result Body Mass Index 27.4 Tobacco/Smoking Status: Tobacco use Status Tobacco use date assessed 03/16/25 03/16/25 09:03 Patient Tobacco Use Status Former Tobacco user 03/16/25 09:03 Tobacco use type Cigarette 03/16/25 09:03 e-Cigarette/Vaping Use Never Used 03/16/25 09:03 PHQ-9: PHQ-9 Score PHQ-9: Total score 7 03/16/25 10:09 Depression Screening Interpretation: Positive Depression Screening Follow-up: Existing condition, In treatment and Follow-up Visit Requested Thrive Assessment: Date of Thrive Assessment Date Thrive assessed 03/16/25 03/16/25 09:03 Currently or been in a relationship where the following occur: I choose not to answer Resp Auscultation: wheezes expiratory wheezes and lower bilaterally Cardio Jugular venous distension: no JVD Rate: regular rate Rhythm: regular rhythm Heart sounds: S1 normal heart sound present and S2 normal heart sound present Extrem General: Yes full ROM Results AMB Hemoglobin A1c AMB Hemoglobin A1c 8.1 % Last Edit by ANTONIO Tellez on 03/16/25 09:13 Results Reviewed Results Reviewed: Laboratory Last Values Hgb A1c (Clinic) 8.1 % (4.0-6.0) H 03/16/25 09:12 Coding Level of Care Code Est Pt Level 4 (64607) Complex EM visit Add On G2211 Diagnoses Asthma-COPD overlap syndrome J44.9 Hypogonadism in male E29.1 BPH w/o urinary obs/LUTS N40.0 Mild recurrent major depression F33.0 Insomnia G47.00 Essential hypertension I10 Diabetes E11.9 Hyperlipidemia LDL goal <70 E78.5 Additional Codes CLARA-7 Assessment Billing - CLARA-7 Assessment Tool: CLARA-7 Assessment 63411 ([id number]) PHQ-9 - 07297 - PHQ-9 Billing: Yes ([id number]) Time Spent (min) 25 Assessment & Plan Assessment & Plan (1) Asthma-COPD overlap syndrome: Comment: THIS GENTLEMAN HAS LONGSTANDING HISTORY OF BRONCHIAL ASTHMA AND NOW HAS PHASE INTO COPD. IS ASTHMATIC COMPONENT IS MOSTLY DUE TO ENVIRONMENTAL ALLERGIES. OVERALL IT IS WELL CONTROLLED EXCEPT FOR MILD INTERMITTENT EXACERBATIONS. CURRENTLY HE DOES COMPLAIN OF INCREASED COUGH AND WHEEZING ESPECIALLY IN THE MORNING HOURS. Code(s): J44.9 - Chronic obstructive pulmonary disease, unspecified Category: Medical (2) Hypogonadism in male: Code(s): E29.1 - Testicular hypofunction Category: Medical (3) BPH w/o urinary obs/LUTS: Code(s): N40.0 - Benign prostatic hyperplasia without lower urinary tract symptoms Category: Medical (4) Mild recurrent major depression: Code(s): F33.0 - Major depressive disorder, recurrent, mild Category: Medical (5) Insomnia: Code(s): G47.00 - Insomnia, unspecified Category: Medical (6) Essential hypertension: Code(s): I10 - Essential (primary) hypertension Category: Medical (7) Diabetes: Code(s): E11.9 - Type 2 diabetes mellitus without complications Category: Medical (8) Hyperlipidemia LDL goal <70: Code(s): E78.5 - Hyperlipidemia, unspecified Category: Medical Plan The patient will continue using Wixela for COPD management, with a recommendation to avoid overuse of inhalers. For diabetes management, the insulin dosage will be increased to 23 units, and metformin will be taken twice daily to better control blood glucose levels. Hypertension will continue to be managed with losartan and hydrochlorothiazide. Hyperlipidemia management will continue with rosuvastatin. The patient will continue using tadalafil for erectile dysfunction. A follow-up colonoscopy is recommended in five years due to previous findings of polyps. The patient is advised to monitor blood glucose levels closely and report any significant changes. Patient was informed and verbally consented to the use of an ambient scribe for clinic note documentation during this visit. Orders: Orders Lipid Panel Today E78.5 - Hyperlipidemia, unspecified AMB Hemoglobin A1c Today E11.9 - Type 2 diabetes mellitus without complications Microalbumin, Random (w Creat) Today R80.9 - Proteinuria, unspecified Comprehensive Grady. Panel Fast Today J44.9 - Chronic obstructive pulmonary disease, unspecified Medications: Changed From trazodone 100 mg PO BEDTIME To trazodone 100 mg PO BEDTIME 90 tabs 1RF 90 days From metformin 1,000 mg PO BID To metformin 1,000 mg PO BID 180 tabs 0RF 90 days From insulin detemir U-100 (Levemir U-100 Insulin) 20 units subcut QPM diabetes mellitus To insulin detemir U-100 (Levemir U-100 Insulin) 23 units subcut QPM
[2025-03-16 08:58] VITALS: BP 124/68; BMI 27.4
--- OUTSIDE RECORDS SUMMARY | 2025-03-16 09:14 | XMS_ITS | Patient Health Record ---
Author Organization [facility] Address [address] [place] [address] Care Team Providers Care Commercial Subcontractor Name Role Phone Aly SANZ, Alfredo Primary Care Provider Unavailab Carrillo Mcdowell Unavailable [phone] Allergies No Known Allergies Results Component Value Reference Range Notes Glucose, Whole Blood Reviewed date:05/29/2024 04:34:37 PM Interpretation: Performing Lab:[facility], [address] [place] [phone] Notes/Report: Glucose, Whole Blood 151 60-115 mg/dL METER # : [id number] Pathology (Not yet reviewed by provider) Interpretation: Performing Lab:[facility], [address] [place] [phone] Notes/Report: ----- Name: Werner Ariel Post Age/Sex: 68/M : 1955 Unit#: [id number] Attend Dr: Carrillo Zuluaga MD Re05/29/24 Status : [facility] Location: [facility] Disch: ----- SPEC : [id number] RECD : 05/29/24 STATUS: MAHENDRA ALCANTAR NUM: [id number] ERICKA: 05/29/[address] [facility] [address]: Carrillo Zuluaga MD ENTERED: 05/29/24 [...] Ariel Mcclellan Age/Sex: 68/M : 1955 Unit#: [id number] Attend Dr: Carrillo Zuluaga MD Re05/29/24 Status : [facility] Location: [facility] Disch: ----- SPEC : [id number] RECD : 05/29/24-1148 STATUS: [facility] NUM: [id number] ERICKA: 05/29/24-[address] [facility] [address]: Carrillo Zuluaga MD ENTERED: 05/29/24- 12 SP TYPE: Surgical OTHR DR: Alfredo Lu MD ORDERED: HE Stain/12 , Gross Micro L4/4 Gross Description (Continued) D. Received in forma carlos labeled ?rectal polyp? is a fragment of pink-moore soft tissue measuring 0.5 cm in greatest dimension which is entirely submitted for microscopic examination, 1 piece in cassette [facility]. [facility] Copies To: Alfredo Lu MD [address] [place] [address] [address] [place] [id number] Carrillo Zuluaga MD [facility] [address] [place] [phone] ----- Signed (signature on file) Booker Dutton [...] 10 MG TAKE 1 TABLET BY MO [facility] EVERY DAY Oral Once [...] Problem Status W/U Status Risk Notes Problem 981048027 Encounter for screening for malignant neoplasm of colon (Z12.11) Active confirmed Problem 463741021 History of adenomatous polyp of colon (Z86.010) Active confirmed Problem Diverticular disease of colon (595785010) Diverticulosis of large intestine without perforation or abscess without bleeding (K57.30) Active confirmed Problem 248810252 Gastroesophageal reflux disease without esophagitis (K21.9) Active confirmed Encounters Encounter Location Date Provider Diagnosis [facility] [address] [place] [id number] 05/29/2024 Carrillo Zuluaga Colon cancer cierae ino [...] Insured Coverage Start Date Coverage End Date [facility] [address] Attn Claims MARIS Good [id number] WERNER SOTO ESEQUIEL Self - patient is [...]
== END 2025-03-16 09:34 | disposition home or self-care (01) ==
LOC: HO.HMCH 08:46
PROVIDERS: PCP Family Medicine; Visit Provider Internal Medicine
DX: J44.9 Chronic obstructive pulmonary disease, unspecified (principal); E11.69 Type 2 diabetes mellitus with other specified complication; E29.1 Testicular hypofunction; N40.0 Benign prostatic hyperplasia without lower urinary tract symptoms; F33.0 Major depressive disorder, recurrent, mild; G47.00 Insomnia, unspecified; I10 Essential (primary) hypertension; E78.5 Hyperlipidemia, unspecified

== ENCOUNTER → 2025-03-16 08:46 | Outpatient (BNVA) | payer OTHER, SELFPAY | PROVIDERS: PCP Family Medicine; Visit Provider Internal Medicine | DX: N40.0 Benign prostatic hyperplasia without lower urinary tract symptoms (principal); J44.9 Chronic obstructive pulmonary disease, unspecified; E29.1 Testicular hypofunction; E11.9 Type 2 diabetes mellitus without complications; I10 Essential (primary) hypertension; E78.5 Hyperlipidemia, unspecified; F33.0 Major depressive disorder, recurrent, mild; G47.00 Insomnia, unspecified; R80.9 Proteinuria, unspecified; Z79.4 Long term (current) use of insulin | CPT/HCPCS: 83036; 96127; 99212 ==

== ENCOUNTER 2025-04-12 08:10 | Outpatient (REF) | payer OTHER, SELFPAY ==
--- OUTSIDE RECORDS SUMMARY | 2025-04-12 08:14 | XMS_ITS | Patient Health Record ---
Author Organization [facility] Address [address] [place] [address] Care Team Providers Care Shipping Inspector Name Role Phone Aly SANZ, Alfredo Primary Care Provider Carrillo Chaves [phone] Allergies No Known Allergies Results Component Value Reference Range Notes Glucose, Whole Blood Reviewed date:05/29/2024 04:34:37 PM Interpretation: Performing Lab:[facility], [address] [place] [phone] Notes/Report: Glucose, Whole Blood 151 60-115 mg/dL METER # : [id number] Pathology (Not yet reviewed by provider) Interpretation: Performing Lab:[address] [phone] Notes/Report: Reason For Referral No Information Medications Medication [...] HCl 10 MG TAKE 1 TABLET BY [facility] EVERY DAY Oral Once a [...] Problem Status W/U Status Risk Notes Problem 606471942 Encounter for screening for malignant neoplasm of colon (Z12.11) Active confirmed Problem 049303565 History of adenomatous polyp of colon (Z86.010) Active confirmed Problem Diverticulosis o f large intestine without perforation or abscess without bleeding (K57.30) Active confirmed Problem 924029722 Gastroesophageal reflux disease without esophagitis (K21.9) Active confirmed Encounters Encounter Location Date Provider Diagnosis [facility] [place] [address] [place] [phone] 05/29/2024 Carrillo Zuluaga Colon cancer cierae ino [...] Start Date Coverage End Date [facility] [address] Attn Claims MARIS Good [id number] ESEQUIEL HEALY Self - patient is the insured Medical (General) History Medical History History ICD Code Tubular adenoma removed in 1 --had a neg colonoscopy in 09/2011 except for diverticulosis and internal hemorrhoids Gastroesophageal reflux--EGD in 06/2006-small HH, gastritis with H.pylori-Rx'd with PPI, Biaxin, Amoxicillen--EGD in 06/2013--small HH-no esophagitis, no Noel's Asthma IDDM since age 27 Hyperlipidemia Arthritis Denies OR, stroke, and renal disease Anxiety Hypertension Negative screening colonoscopy in November of 2018. Surgical History Surgery Date(Month/Year) Prostate surgery for BPH
[2025-04-12 09:25] LABS: Alanine Aminotransferase 30 U/L (0-40); Albumin Level 4.2 g/dL (3.5-5.0); Alkaline Phosphatase 65 U/L (39-117); Anion Gap 10 (12-20); Aspartate Amino Transferase 29 U/L (5-37); Blood Urea Nitrogen 19 mg/dL (9-16); Calcium 8.8 mg/dL (8.4-10.2); Carbon Dioxide 27 mmol/L (22-29); Chloride 110 mmol/L (96-108); Cholesterol 127 mg/dL (<200); Estimated Glomerular Filt Rate > 60; HDL Cholesterol 37 mg/dL (>40); Potassium 4.3 mmol/L (3.3-5.1); Sodium 143 mmol/L (135-145); Total Protein 7.0 g/dL (6.5-8.0); Triglycerides 69 mg/dL (<150)
[2025-04-12 11:29] LABS: Microalbum/Creatinine Ratio Ur 21.4 ug/mg cr (<30)
== END 2025-04-12 08:11 | disposition home or self-care (01) ==
LOC: HO.LAB 08:10
PROVIDERS: Absent Provider Urology; PCP Internal Medicine; Visit Provider Internal Medicine
DX: E78.5 Hyperlipidemia, unspecified (principal); R80.9 Proteinuria, unspecified; J44.89 Other specified chronic obstructive pulmonary disease
CPT/HCPCS: 36415; 80053; 80061; 82043; 82570

== ENCOUNTER 2025-04-13 07:48 | Outpatient (REF) | payer OTHER, SELFPAY ==
--- OUTSIDE RECORDS SUMMARY | 2025-04-13 07:51 | XMS_ITS | Patient Health Record ---
Author Organization [facility] Address [address] [place] [address] Care Team Providers Care Cnc Mechanic Name Role Phone Aly (RETIRED) Alfredo SANZ Primary Care Provider Unavailable Carrillo Zuluaga Unavailable [phone] Allergies No Known Allergies Results Component Value Reference Range Notes Glucose, Whole Blood Reviewed date:05/29/2024 04:34:37 PM Interpretation: Performing Lab:[facility], [address] [place] [id number] Notes/Report: Glucose, Whole Blood 151 60-115 mg/dL METER # : [id number] Pathology (Not yet reviewed by provider) Interpretation: Performing Lab:[facility], [address] [place] [id number] Notes/Report: Reason For Referral No Information Medications [...] HCl 10 MG TAKE 1 TABLET BY [facility] EVERY DAY Oral Once a day Active [...] Problem Status W/U Status Risk Notes Problem 506143621 Encounter for screening for malignant neoplasm of colon (Z12.11) Active confirmed Problem 425008611 History of adenomatous polyp of colon (Z86.010) Active confirmed Problem Diverticulosis o f large intestine without perforation or abscess without bleeding (K57.30) Active confirmed Problem 692801443 Gastroesophageal reflux disease without esophagitis (K21.9) Active confirmed Encounters Encounter Location Date Provider Diagnosis [facility] [address] [place] [id number] 05/29/2024 Carrillo Zuluaga Colon cancer cierae ino [...] Insured Coverage Start Date Coverage End Date [facility] [address] Attn Claims MARIS Good [id number] ESEQUIEL HEALY Self - patient is the insured Medical (General) History Medical History History ICD Code Tubular adenoma removed in 1 --had a neg colonoscopy in 09/2011 except for diverticulosis and internal hemorrhoids Gastroesophageal reflux--EGD in 06/2006-small HH, gastritis with H.pylori-Rx'd with PPI, Biaxin, Amoxicillen--EGD in 06/2013--small HH-no esophagitis, no Noel's Asthma IDDM since age 27 Hyperlipidemia Arthritis Denies [place], stroke, and renal disease Anxiety Hypertension Negative screening colonoscopy in November of 2018. Surgical History Surgery Date(Month/Year) Prostate surgery for BPH
[2025-04-13 08:52] LABS: Hematocrit 41.2 % (42.0-52.0); Hemoglobin 14.1 g/dl (14.0-18.0); Mean Corpuscular HGB Conc 34.2 g/dl (31.0-36.0); Mean Corpuscular Hemoglobin 31.3 pg (27.0-33.0); Mean Corpuscular Volume 91.4 fL (80.0-98.0); NRBC Abs Auto 0.000 X10*3/uL (0.0-0.012); NRBC Pct Auto 0.0 /100WBC (0.0-0.2); Platelet Count 296 X10*3/uL (160-400); Red Blood Count 4.51 X10*6/uL (4.60-5.80); White Blood Count 9.3 X10*3/uL (4.8-10.8)
[2025-04-13 09:35] LABS: Prostate Specific Antigen 5.56 ng/mL (<0.05-4.0)
== END 2025-04-13 07:49 | disposition home or self-care (01) ==
LOC: HO.LAB 07:48
PROVIDERS: PCP Internal Medicine; Visit Provider Urology
DX: E29.1 Testicular hypofunction (principal); Z12.5 Encounter for screening for malignant neoplasm of prostate
CPT/HCPCS: 36415; 84153; 84403; 85027

== ENCOUNTER 2025-07-06 10:06 | Outpatient (AMB) | payer OTHER, SELFPAY ==
--- OUTSIDE RECORDS SUMMARY | 2024-05-29 06:30 | XMS_ITS ---
Author Organization [facility] Address [address] [place] [address] Care Team Providers Care Post Acute Care Registered Nurse Name Role Phone Aly (RETIRED) Alfredo SANZ Primary Care Provider Unavailable Carrillo Zuluaga Unavailable [phone] REASON FOR VISIT screening colon Problems Problem Type SNOMED Code ICD Code Onset Dates Problem Status W/U Status Risk Notes Problem Diverticular disease of colon (910437521) Diverticulosis of large intestine without perforation or abscess without bleeding (K57.30) Active confirmed Encounters Encounter Location Date Provider [place] [facility] [place] [address] [place], [place] [phone] 05/29/2024 Carrillo Zuluaga Colon cancer scree ino [...] No Information Progress Notes * JEFFREY HEALYNDOB:11/1954 (69 yo M)Acc No.[id number]:05/29/2024 COLON WITH MAC Patient: Tereso ESEQUIEL BLANDON Provider: Jeremiah Zuluaga MD :1955 A ge:68 Y S ex:Male Date:05/29/2024 Address:[address] [place] [address] [id number] Pcp:Alfredo Lu (RETIRED) MD Subjective: * Chief [...] 05/29/2024 Generated for Scooter richmond/Ava/eTransmitting on: 1 11:57 AM EDT
[2025-07-06 10:15] VITALS: BP 164/78; PULSE 77; O2SAT 96; BMI 27.8
--- NOTE | 2025-07-06 10:15 | MHC.OFFVIS ---
Vital Signs 07/06/25 10:15 Height 5 ft 7 in Weight 177 lb 7.554 oz BMI 27.8 BP 164/78 H Blood Pressure Location Lt brachial Position Sitting Pulse 77 Pulse Source Pulse Oximeter Pulse Oximetry (%) 96 Oxygen Delivery Method Room Air Intake Visit Reasons: COPD Intake Note: pt is here for follow up and states wheezing and tightness in chest and throat area, he was sick for 3 weeks and this is what is left over from this. Heating And Cooling Technician Required: No Clinical Evaluator: Clinical Evaluator offered & declined Allergies REAGAN Inhibitors Allergy (Mild, Verified 07/06/25 10:21) Rash bupropion (From Wellbutrin) Allergy (Unknown, Verified 07/06/25 10:21) Unknown simvastatin Adverse Reaction (Intermediate, Verified 07/06/25 10:21) myalgia Do you need a note to return to daycare/school/sports/work: No HPI HPI COPD: Details: Philip , 69 years old very pleasant gentleman, is here for 4 months follow-up. He has chronic allergic rhinitis with bronchial asthma. He is on biologic treatment with Xolair 100 subQ q.4 weeks, and has been feeling much better since he is on this medicine. This time for the last 3-4 weeks he is having increased cough , soreness in the throat and congestion. He has been treating it himself with non diabetes Robitussin, still has hacking cough. No fever or chills. [facility] Medical History COVID-19 COPD (chronic obstructive pulmonary disease) Arthritis Hyperlipidemia Diabetes GERD (gastroesophageal reflux disease) Diverticulosis Tubular adenoma Allergic rhinitis Hypogonadism in male Urge incontinence Hypogonadism male BPH w/o urinary obs/LUTS Asthma High cholesterol IDDM (insulin dependent diabetes mellitus) HTN (hypertension) Surgical History History of esophagogastroduodenoscopy (EGD) H/O colonoscopy History of prostate surgery Family History Family/Other Mental health disorder Social History Housing: Apartment Are you a primary assistant child care teacher to a significant other at home: No Do you presently have visiting nurse or other home services: No Alcohol intake: never Patient Tobacco Use Status: Former Tobacco user Tobacco use type: Cigarette Years Smoked: 30 e-Cigarette/Vaping Use: Never Used Second Hand Smoke Exposure: No Advance Directives Date on File: 06/30/20 service: No Current occupational status: retired and disabled Cognitive needs: No Hearing needs: No Vision needs: Yes Review of Systems Const All systems reviewed & are unremarkable except as noted in HPI and below Eyes Reports no additional complaints ENT Reports nasal congestion (Mild intermittent mostly in a.m.) Card Denies chest pain, Reports rapid heart rate (If he uses ProAir), Denies irregular heart rhythm and Denies leg edema Resp Reports as per HPI GI Reports heartburn (Being treated with omeprazole) Reports erectile dysfunction Musc Reports no additional complaints Skin/Breast Reports system reviewed and no additional complaints, except as documented Neuro Reports no additional complaints Psych Reports no additional complaints Physical Exam Vital Signs: Last Vital Signs Pulse 77 07/06/25 10:15 BP 164/78 H 07/06/25 10:15 Pulse Ox 96 07/06/25 10:15 Oxygen Delivery Method Room Air 07/06/25 10:15 BMI result Body Mass Index 27.8 Const General: healthy appearing, comfortable, no acute distress, alert and awake Orientation/consciousness: patient oriented x3 HEENT Head: Yes normal to inspection General nose exam: No nasal polyps present, mucous membranes and turbinates abnormal (Moderately enlarged nasal turbinates), No nasal discharge present and Other nasal findings present (Moderate amount of nasal congestion is noted) Face and sinus: Yes sinuses nontender Mouth: oropharynx normal Throat: Yes posterior oropharynx normal Eyes General: appearance normal, both eyes and all related structures Neck Neck: Yes normal visual inspection, Yes no lymphadenopathy, Yes trachea midline and Yes no JVD Thyroid: Thyroid normal Chest Chest palpation & inspection: normal inspection of the chest, normal palpation of entire chest wall and no tenderness Resp Other: Percussion note resonant, breath sounds are distant with prolonged expiratory phase On auscultation, THERE ARE INSPIRATORY WHEEZES IN THE UPPER PART OF THE CHEST ON BOTH SIDES. Cardio Palpation: normal PMI Rate: regular rate Rhythm: regular rhythm Heart sounds: no gallops and no murmurs GI Palpation (GI): Soft to palpation, nontender, No hepatosplenomegaly present and no masses Auscultation: normal bowel sounds Back/Spine/Pelvis Thoracic/Lumbar Spine: thoracic and lumbar spine normal to inspection Skin General skin exam: no rashes or lesions noted Neuro General: patient oriented x3 and no focal motor deficits Cranial nerves: Yes CN's II-XII intact bilaterally Extrem General: Yes normal to inspection, Yes no clubbing, cyanosis or edema and Yes no calf tenderness Psych Appearance: grossly normal and well kempt Speech and movement: Normal speech and movement present Assessment & Plan Assessment & Plan (1) Severe persistent allergic asthma: Comment: CHRONIC ALLERGIC BRONCHIAL ASTHMA/COPD. RELATIVELY STABLE AT THIS TIME. CONTROLLED BETTER SINCE HE IS ON XOLAIR INJECTIONS 300 mg q 4 weeks STILL HAS INTERMITTENT COUGH ESPECIALLY AT NIGHT AND IN THE MORNING HOURS. Code(s): J45.50 - Severe persistent asthma, uncomplicated Category: Medical Plan: Continue Xolair injection 300 mg q.4 weeks Wixela 250-51 inhalation b.i.d. Albuterol HFA 2 puffs Q 4-6 hours p.r.n. (2) Cough: Comment: Currently he has increased congestion in the upper chest and feeling of congestion in the upper airways This seems to be residual from recent upper respiratory infection. Code(s): R05.9 - Cough, unspecified Category: Medical Plan: Z-Jared 1 course for 5 days. Robitussin 2 tsp t.i.d. is okay (3) Allergic rhinitis: Comment: CHRONIC ALLERGIC RHINITIS, PERENNIAL, SECONDARY TO MULTIPLE ENVIRONMENTAL ALLERGIES. CONTROLLED AT THIS TIME WELL BUT HE STILL CONTINUES TO HAVE SOME DEGREE OF NASAL CONGESTION, AND URGE TO CLEAR MUCUS. USE OF STEAM INHALATIONS ESPECIALLY IN THE MORNING IS HELPFUL. Code(s): J30.9 - Allergic rhinitis, unspecified Category: Medical Plan: Continue montelukast 10 mg daily Flonase nasal spray 2 spray each nostril daily Xolair 300 mg subQ q.4 weeks Medications: New azithromycin For 250 mg dose pack: take 500 mg today (day 1), then 250 mg for 4 days (days 2-5) PO 6 tabs 0RF Coding Level of Care Code Est Pt Level 3 (34204) Diagnoses Severe persistent allergic asthma J45.50 Cough R05.9 Allergic rhinitis J30.9
--- OUTSIDE RECORDS SUMMARY | 2025-07-06 11:57 | XMS_ITS | Patient Health Record ---
Author Organization [facility] Address [address] [place] [address] Care Team Providers Care Filler Wiper Name Role Phone Aly (RETIRED) Alfredo SANZ Primary Care Provider Unavailable Carrillo Zuluaga Unavailable [phone] Allergies No Known Allergies Reason For Referral No Information Medications Medication [...] HCl 10 MG TAKE 1 TABLET BY [facility] EVERY DAY Oral Once a day [...] Problem Status W/U Status Risk Notes Problem [id number] Encounter for screening for malignant neoplasm of colon (Z12.11) Active confirmed Problem 972573266 History of adenomatous polyp of colon (Z86.010) Active confirmed Problem Diverticular disease of colon (545228463) Diverticulosis of large intestine without perforation or abscess without bleeding (K57.30) Active confirmed Problem 847923304 Gastroesophageal reflux disease without esophagitis (K21.9) Active confirmed Plan Of Treatment Pending Test Test Name Order Date Pathology 05/29/2024 Future Test Test Name Order Date UPPER GI ENDOSCOPY 06/24/2013 COLONOSCOPY 11/12/2018 COLONOSCOPY 02/13/2024 Insurance Providers Payer Name Payer Address Payer Phone Subscriber Number Group Number Insured Name Patient Relationship to Insured Coverage Start Date Coverage End Date [facility] [address] Attn Claims MARIS Good [id number] ESEQUIEL HEALY Self - patient is the insured Medical (General) History Medical History History ICD Code Tubular adenoma removed in 1 --had a neg colonoscopy in 09/2011 except for diverticulosis and internal hemorrhoids Gastroesophageal reflux--EGD in 06/2006-small HH, gastritis with H.pylori-Rx'd with PPI, Biaxin, Amoxicillen--EGD in 06/2013--small HH-no esophagitis, no Noel's Asthma IDDM since age 27 Hyperlipidemia Arthritis Denies [place], stroke, and renal disease Anxiety Hypertension Negative screening colonoscopy in November of 2018. Surgical History Surgery Date(Month/Year) Prostate surgery for BPH
== END 2025-07-06 10:44 | disposition home or self-care (01) ==
LOC: HO.HPS 10:06
PROVIDERS: PCP Internal Medicine; Visit Provider Internal Medicine
DX: J45.50 Severe persistent asthma, uncomplicated (principal); R05.9 Cough, unspecified; J30.9 Allergic rhinitis, unspecified
CPT/HCPCS: 99213

== ENCOUNTER → 2025-07-06 10:06 | Outpatient (BNVA) | payer OTHER, SELFPAY | PROVIDERS: PCP Internal Medicine; Visit Provider Internal Medicine | DX: J45.50 Severe persistent asthma, uncomplicated (principal); R05.9 Cough, unspecified; J30.9 Allergic rhinitis, unspecified | CPT/HCPCS: 99212 ==

== ENCOUNTER 2025-08-10 11:00 | Outpatient (AMB) | payer OTHER, SELFPAY ==
--- OUTSIDE RECORDS SUMMARY | 2024-05-29 05:30 | XMS_ITS ---
Author Organization [facility] Address [address] [place] [address] Care Team Providers Care Lpn Cma Name Role Phone Aly (RETIRED) Alfredo SANZ Primary Care Provider Unavailable Carrillo Zuluaga Unavailable [phone] REASON FOR VISIT screening colon Problems Problem Type SNOMED Code ICD Code Onset Dates Problem Status W/U Status Risk Notes Problem Diverticular disease of colon (442178085) Diverticulosis of large intestine without perforation or abscess without bleeding (K57.30) Active confirmed Encounters Encounter Location Date Provider Diagnosis [facility] [place] [address] [place], [place] [phone] 05/29/2024 Carrillo Zuluaga Colon cancer scree ino Z12.11 ; Colon polyps K63.5 ; Diverticulosis of large intestine without perforation or abscess without bleeding K57.30 and Other hemorrhoids K64.8 Assessments Encounter Date Diagnosis (ICD Code) Assessment Notes Treatment Notes Treatment Clinical Notes Section Notes 05/29/2024 Colon cancer screening (ICD-10 - Z12.11) 05/29/2024 Colon polyps (ICD-10 - K63.5) 05/29/2024 Diverticulosis of large intestine without perforation or abscess without bleeding (ICD-10 - K57.30) 05/29/2024 Other hemorrhoids (ICD-10 - K64.8) Plan Of Treatment No Information Progress Notes * JEFFREY HEALYNDOB:11/1954 (70 yo M)Acc No.[id number]:05/29/2024 COLON WITH MAC Patient: Tereso ESEQUIEL BLANDON Provider: Jeremiah Zuluaga MD :1955 A ge:68 Y S ex:Male Date:05/29/2024 Address:[address] [place] [address] [id number] Pcp:Alfredo Lu (RETIRED) MD Subjective: * Chief Complaints: * 1 . Screening colon. * Medical History: Objective: * Vitals: Assessment: * Assessment: 1. C olon cancer screening - Z12.11 (Primary) 2 . C olon polyps - K63.5? 3. D iverticulosis of large intestine without perforation or abscess without bleeding - K57.30 4 . O ther hemorrhoids - K64.8 Plan: * Treatment: * Procedure Codes: 4 5385 LESION REMOVAL COLONOSCOPY, Modifiers: 33 * * The named appointment provid er may or may not be the originator of this progress note, and it is not deemed complete until electronically signed by the appointment provider. Sign off status: Pending * Provider: Jeremiah Zuluaga MD Date: 0 05/29/2024 Generated for Scooter richmond/Ava/Erikaransmitting on: 1 10/10/2024 01:12 PM EST
--- NOTE | 2025-08-10 11:08 | A.OFFPC_ITS ---
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: No Accompanied by: Self / Same As Patient Allergies REAGAN Inhibitors Allergy (Mild, Verified 08/10/25 11:31) Rash bupropion (From Wellbutrin) Allergy (Unknown, Verified 08/10/25 11:31) Unknown simvastatin Adverse Reaction (Intermediate, Verified 08/10/25 11:31) myalgia Medication List - Last Reconciled 08/10/25 by Kate Saavedra MD albuterol sulfate 90 mcg/actuation 2 puffs inhalation QID PRN 30 days blood sugar diagnostic As directed blood sugar diagnostic (FreeStyle Test strips) As directed- BID calcium citrate 500 mg PO DAILY cetirizine 10 mg PO DAILY cyclobenzaprine 5 mg PO Q8H PRN 5 days fluticasone propion-salmeterol 250-50 mcg/dose (Wixela Inhub) 1 ea inhalation BID fluticasone propionate 50 mcg/actuation 1 spray intranasal BID PRN [FreeStyle Lite Test Strips As directed] insulin detemir U-100 (Levemir U-100 Insulin) 23 units subcut QPM insulin syringe-needle U-100 As directed lancets As directed loperamide (Imodium A-D) 2 mg PO Q6H PRN losartan-hydrochlorothiazide 50-12.5 mg 1 tab PO DAILY 90 days metformin 1,000 mg PO BID 90 days metoprolol succinate ER 50 mg PO QAM montelukast 10 mg PO DAILY 90 days needle (disp) 18 G (BD Regular Bevel [place]) As directed - draw up testosterone needle (disp) 23 gauge (BD Regular Bevel [place]) Inject testosterone subcutaneous omalizumab (Xolair) 300 mg (2 mL) subcut Q4W 12 months omeprazole 20 mg PO DAILY rosuvastatin 5 mg PO DAILY 90 days syringe (disposable) (BD Luer-Stefan Syringe) Testosterone injection weekly syringe with needle As directed weekly syringe with needle, safety Qweekly tadalafil 10 mg PO DAILY 90 days tamsulosin 0.4 mg PO DAILY 90 days testosterone cypionate (Depo-Testosterone) 80 mg (0.4 mL) subcut QWEEK 4 weeks trazodone 100 mg PO BEDTIME 90 days Tobacco use date assessed: 08/10/25 Fall risk assessment: No Falls in past year Last assessed Fall Risk: 08/10/25 Dental Screening Dental Screen Date: 08/10/25 Did you have a dental visit in the last 12 months?: Yes Did you have a dental problem in the last 6 months where you did not have access to dental care?: No Was dental information given to patient?: Patient has dentist HPI HPI Comments History of Present Illness Details The patient is a 70-year-old male presenting for his physical exam. He has a history of allergies to REAGAN inhibitors, which cause thrush, bupropion, and simvastatin, which caused muscle pain. He has diabetes mellitus type 2 with an A1c of 7.6 % today, COPD follow by pulmunology and mild major depression on Trazodone. His current medications include an albuterol inhaler, calcium, cetirizine for allergies, Flexeril as needed, an unknown inhaler for COPD, losartan with hydrochlorothiazide for hypertension, metformin for diabetes, metoprolol, montelukast, Xolair every four weeks, omeprazole for acidity, rosuvastatin 5 mg for cholesterol, tadalafil, tamsulosin, and trazodone. He also receives weekly testosterone injections but reports he does not like them. Past surgical history is significant for a prostate surgery. He sees Dr. Gómez, a urologist, for his prostate condition. He is a former smoker. Recent lab results showed an LDL cholesterol of 77, normal testosterone levels, and very good protein in the urine. His prostate marker was slightly high but is being managed by urology. The patient will receive a pneumonia vaccination today. Colonoscopy done 2023. [facility] Medical History COVID-19 COPD (chronic obstructive pulmonary disease) Arthritis Hyperlipidemia Diabetes GERD (gastroesophageal reflux disease) Diverticulosis Tubular adenoma Allergic rhinitis Hypogonadism in male Urge incontinence Hypogonadism male BPH w/o urinary obs/LUTS Asthma High cholesterol IDDM (insulin dependent diabetes mellitus) HTN (hypertension) Surgical History History of esophagogastroduodenoscopy (EGD) H/O colonoscopy History of prostate surgery Family History Family/Other Mental health disorder Social History Housing: Apartment Are you a primary animal care giver to a significant other at home: No Do you presently have visiting nurse or other home services: No Alcohol intake: never Patient Tobacco Use Status: Former Tobacco user Tobacco use type: Cigarette Years Smoked: 30 e-Cigarette/Vaping Use: Never Used Second Hand Smoke Exposure: No Advance Directives Date on File: 06/30/20 service: No Current occupational status: retired and disabled Cognitive needs: No Hearing needs: No Vision needs: Yes Questionnaire PHQ-9 Over the last 2 weeks, how often have you been bothered by any of the following problems? 1. Little interest or pleasure in doing things: nearly every day 2. Feeling down, depressed, or hopeless: several days 3. Trouble falling or staying asleep, or sleeping too much: several days 4. Feeling tired or having little energy: more than half the days 5. Poor appetite or overeating: not at all 6. Feeling bad about yourself - or that you are a failure or have let yourself or your family down: not at all 7. Trouble concentrating on things, such as reading the newspaper or watching te levision: not at all 8. Moving or speaking so slowly that other people could have noticed. Or the opposite - being so fidgety or restless that you have been moving around a lot more than usual: not at all 9. Thoughts that you would be better off or of hurting yourself in some way: not at all Total score: 7 Depression Screening Interpretation: Positive Depression Screening Follow-up: Existing condition, In treatment and Follow-up Visit Requested Depression Screening Done: Yes 77222 - PHQ-9 Billing: Yes Source: Developed by Drs. Carrillo Zabala, Nita Guzmán, Carlton Ling and colleagues, with an educational jacob from [employer]. Thrive Questionnaire Date Thrive assessed: 03/16/25 I am a: Patient What is your living situation today?: I have a steady place to live Within the past 12 months, did the food you bought not last and you didn't have the money to get more?: Never true Within the past 12 months, did you worry whether your food would run out before you got money to buy more?: I choose not to answer this question Do you have trouble paying for medicines?: No Do you have trouble getting transportation to medical appointments?: No Do you have trouble paying your heating and electricity bill?: No Do you have trouble taking care of your child, family member or friend?: No Do you have trouble with day-to-day activities such as bathing, preparing meals, shopping, managing finances, etc.?: I choose not to answer this question Are you currently unemployed and looking for a job?: No Are you interested in more education?: No Please select the resources that you would like help with: None Currently or been in a relationship where the following occur: I choose not to answer THRIVE Score: 0 AUDIT C Alcohol Use Questionnaire (AUDIT-C) 1. How often do you have a drink containing alcohol?: Never Total Score: 0 Score Reviewed/Action Taken: No CLARA-7 AMB Questionnaire CLARA-7 Date CLARA - 7 assessed: 03/16/25 Feeling nervous, anxious, or on edge: 0 = Not at all Not being able to stop or control worryin = Not at all Worrying too much about different things: 0 = Not at all Trouble relaxin = Not at all Being so restless that it is hard to sit still: 0 = Not at all Becoming easily annoyed or irritable: 0 = Not at all Feeling afraid as if something awful might happen: 0 = Not at all Total CLARA-7 score (0-4 normal; 5-9 mild; 10-14 moderate; 15-21 severe): 0 Source: Developed by Drs. Carrillo Zabala, iNta Guzmán, Carlton Ling and colleagues, with an educational jacob from [employer]. CLARA-7 Assessment Billing CLAAR-7 Assessment Tool: CLARA-7 Assessment 02910 Review of Systems Const All systems reviewed & are unremarkable except as noted in HPI and below Card Denies chest pain at rest, Denies chest pain with activity, Denies edema, Denies irregular heart rhythm, Denies claudication, Denies dyspnea, Denies dyspnea on exertion, Denies orthopnea, Denies paroxysmal nocturnal dyspnea and Denies slow heart rate Resp Denies cough, Denies dyspnea and Denies dyspnea on exertion GI Denies abdominal pain, Denies change in bowel habits, Denies excessive flatus, Denies nausea and Denies vomiting Physical exam (Primary Care) Vital Signs: Last Vital Signs Temp 97.5 F 08/10/25 11:09 Pulse 79 08/10/25 11:09 BP 140/78 H 08/10/25 11:09 Pulse Ox 96 08/10/25 11:09 Oxygen Delivery Method Room Air 08/10/25 11:09 BMI result Body Mass Index 28.0 Tobacco/Smoking Status: Tobacco use Status Tobacco use date assessed 08/10/25 08/10/25 11:14 Patient Tobacco Use Status Former Tobacco user 08/10/25 11:14 Tobacco use type Cigarette 08/10/25 11:14 e-Cigarette/Vaping Use Never Used 08/10/25 11:14 PHQ-9: PHQ-9 Score PHQ-9: Total score 7 08/10/25 11:37 Depression Screening Interpretation: Positive Depression Screening Follow-up: Existing condition, In treatment and Follow-up Visit Requested Thrive Assessment: Date of Thrive Assessment Date Thrive assessed 03/16/25 08/10/25 11:14 Currently or been in a relationship where the following occur: I choose not to answer [facility] Head: Yes normal to inspection, Yes normocephalic and Yes atraumatic Ears: external ears normal Eyes General: appearance normal, both eyes and all related structures Eyelids: Yes eyelids normal Conjunctivae: conjunctivae normal Neck Neck: Yes normal visual inspection and Yes supple Resp Effort & Inspection: normal respiratory effort Auscultation: clear to auscultation bilaterally Cardio Jugular venous distension: no JVD Rate: regular rate Rhythm: regular rhythm Heart sounds: S1 normal heart sound present and S2 normal heart sound present GI Inspection: Yes normal to inspection Palpation (GI): Soft to palpation and nontender Auscultation: normal bowel sounds Skin General skin exam: no rashes or lesions noted Neuro General: no focal motor deficits Extrem General: Yes full ROM Psych Appearance: grossly normal Results AMB Hemoglobin A1c AMB Hemoglobin A1c 7.6 % Last Edit by Genesis Jenkins CMA on 08/10/25 11:18 Immunizations pneumoc 20-annetta conj-dip cr(PF) 0.5 mL IM syringe Performing Provider: Kate Saavedra MD [facility] Administered by: ANTONIO Gong on 08/10/25 11:50 Dose Route Admin Location Dispensed Lot Number Expiration Date NDC Improvement Leader 0.5 mL IM Right Deltoid 0.5 mL [id number] 05/31/2640086-7084-86 Oligasis/Hello Chair Total Dispensed Waste 0.5 mL 0 % VIS Given Date VIS Provided VIS Publication Date 08/10/25 Single Vaccine 25 Eligibility Eligibility Date Funding Source Not [facility] Eligible 08/10/25 Private Results Reviewed Results Reviewed: Laboratory Last Values Hgb A1c (Clinic) 7.6 % (4.0-6.0) H 08/10/25 11:14 Coding Level of Care Code Est Pt Prev Care >65y(31158) Diagnoses Physical exam Z00.00 Asthma-COPD overlap syndrome J44.9 Diabetes E11.9 Mild recurrent major depression F33.0 Additional Codes PHQ-9 - 18000 - PHQ-9 Billing: Yes ([id number]) CLARA-7 Assessment Billing - CLARA-7 Assessment Tool: CLARA-7 Assessment 47327 ([id number]) Time Spent (min) 32 Assessment & Plan Assessment & Plan (1) Physical exam: Code(s): Z00.00 - Encounter for general adult medical examination without abnormal findings Category: Medical (2) Asthma-COPD overlap syndrome: Comment: THIS GENTLEMAN HAS LONGSTANDING HISTORY OF BRONCHIAL ASTHMA AND NOW HAS PHASE INTO COPD. IS ASTHMATIC COMPONENT IS MOSTLY DUE TO ENVIRONMENTAL ALLERGIES. OVERALL IT IS WELL CONTROLLED EXCEPT FOR MILD INTERMITTENT EXACERBATIONS. CURRENTLY HE DOES COMPLAIN OF INCREASED COUGH AND WHEEZING ESPECIALLY IN THE MORNING HOURS. Code(s): J44.9 - Chronic obstructive pulmonary disease, unspecified Category: Medical (3) Diabetes: Code(s): E11.9 - Type 2 diabetes mellitus without complications Category: Medical (4) Mild recurrent major depression: Code(s): F33.0 - Major depressive disorder, recurrent, mild Category: Medical Plan Plan 1. Physical exam The patient's recent lab results, including an LDL of 77 and good urine protein, are stable. No changes will be made to the current medication regimen, which includes losartan/HCTZ, metformin, and rosuvastatin. Vaccines up to date and will have PCV20 today. 2.Diabetes mellitus Continue yearly diabetic eye exam. A1c goal is equal or less than 7 %. 3. Mild major depression Continue Trazodone. 4. Asthma-COPD overlap syndrome Continue long acting inhaler. Follow up with pulmunology. Orders: Orders Lipid Panel 4 Months E78.5 - Hyperlipidemia, unspecified Vitamin B12 and Folate 4 Months E53.8 - Deficiency of other specified B group vitamins AMB Hemoglobin A1c Today Z13.9 - Encounter for screening, unspecified Pneumococcal 20 Immunization Today Z23 - Encounter for immunization Microalbumin, Random (w Creat) 4 Months R80.9 - Proteinuria, unspecified Vitamin D 25-OH Total 4 Months E55.9 - Vitamin D deficiency, unspecified Comprehensive [place]. Panel Fast 4 Months E11.9 - Type 2 diabetes mellitus without complications Medications: Changed From insulin syringe-needle U-100 As directed 10 ea 0RF diabetes mellitus To insulin syringe-needle U-100 As directed- use with Levemir insulin- 32 units QPM 100 ea 0RF diabetes mellitus
[2025-08-10 11:09] VITALS: BP 140/78; PULSE 79; TEMP 36.4; O2SAT 96; BMI 28.0
--- OUTSIDE RECORDS SUMMARY | 2025-08-10 13:12 | XMS_ITS | Patient Health Record ---
Author Organization [facility] Address [address] [place] [address] Care Team Providers Care Print And Pattern Designer Name Role Phone Aly (RETIRED) Alfredo SANZ Primary Care Provider Unavailable Carrillo Zuluaga Unavailable [phone] Allergies No Known Allergies Reason For Referral No Information Medications Medication SIG (Take, Route, Frequency, Duration) Notes Start Date End Date Status Lantus 100 UNIT/ML INJECT 20 UNIT SUBCUTANEOUSLY EVERY EVENING AT 7 PM Subcutaneous; Duration: 90 Not-Taking Albuterol Sulfate HFA 108 (90 Base) MCG/ACT Inhalation; Duration: 30 Active Levemir 100 UNIT/ML Subcutaneous; Durati on: 50 Active Rosuvastatin Calcium 5 MG Oral; Duration: 90 Active Loratadine 10 MG TAKE 1 TABLET BY DONNA TH EVERY DAY Oral Once a day Active Losartan Potassium-HCTZ 50-12.5 MG TAKE 1 TABLET BY MOUTH EVERY DAY Oral Once a day Active Testosterone Cypionate 200 MG/ML (Schedule III Drug) INJECT 1 ML EVERY 2 WEEKS Intramuscular; Duration: 30 Active Glimepiride 2 MG 1 tablet with breakf ast or the first main meal of the day Orally Once a day Not-Ta vesta Omeprazole 20 MG 1 capsule Orally Onc e a day Active Imodium A-D 2 MG 1 or 2 Orally Every 4 to 6 hours as needed for diarrhea; Duration: 30 days 02/13/2024 Active Ventolin HFA 108 (90 Base) MCG/ACT Inhalation; Duration: 30 Ac tive Dulcolax (colon prep) 5 MG take at 3:00 p.m and 7:00p.m. Orally two tablets twice a day for one day; Duration: 1 day 02/13/2024 Active Fluticasone Propionate 50 MCG/ACT ONE SPRAY EACH NOSTRIL NASALLY TWICE A DAY Nasal Twice a day Active MiraLax (colon prep) 17 GM/SCOOP 1 238 Gm bottle mixed with Gatorade or Crystal Light Orally begin at 5:00 p.m. the day before the procedure; Duration: 1 day 02/13/2024 Active Flovent HFA 110 MCG/ACT INHALE 2 PUFFS I NTO THE LUNGS TWICE DAILY Inhalation; Duration: 90 Active Cetirizine HCl 10 MG TAKE 1 TABLET BY [facility] EVERY DAY Oral Once a day [...] Problem Status W/U Status Risk Notes Problem Screening for malignant neoplasm of colon (645319332) Encounter for screening for malignant neoplasm of colon (Z12.11) Active confirmed Problem History of adenomatous polyp of colon (820467108) History of adenomatous polyp of colon (Z86.010) Active confirmed Problem Diverticular disease of colon (094474659) Diverticulosis of large intestine without perforation or abscess without bleeding (K57.30) Active confirmed Problem Gastroesophageal reflux disease without esophagitis (355551795) Gastroesophageal reflux disease without esophagitis (K21.9) Active [...] [facility] [address] Attn Claims MARIS Good [id number] ESEQUIEL HEALY Self - patient is the [...]
== END 2025-08-10 11:53 | disposition home or self-care (01) ==
LOC: HO.HMCH 11:01
PROVIDERS: PCP Family Medicine; Visit Provider Internal Medicine
DX: Z00.00 Encounter for general adult medical examination without abnormal findings (principal); J44.9 Chronic obstructive pulmonary disease, unspecified; E11.9 Type 2 diabetes mellitus without complications; F33.0 Major depressive disorder, recurrent, mild; Z13.9 Encounter for screening, unspecified; Z23 Encounter for immunization

== ENCOUNTER → 2025-08-10 11:00 | Outpatient (BNVA) | payer OTHER, SELFPAY | PROVIDERS: PCP Family Medicine; Visit Provider Internal Medicine | DX: Z23 Encounter for immunization (principal); Z00.00 Encounter for general adult medical examination without abnormal findings; J44.9 Chronic obstructive pulmonary disease, unspecified; E11.9 Type 2 diabetes mellitus without complications; F33.0 Major depressive disorder, recurrent, mild | CPT/HCPCS: 83036; 90471; 90677; 96127; 99397 ==

== ENCOUNTER 2025-09-16 13:02 | Outpatient (REF) | payer OTHER, SELFPAY ==
--- OUTSIDE RECORDS SUMMARY | 2024-05-29 05:30 | XMS_ITS ---
Author Organization [facility] Address [address] [place] [address] Care Team Providers Care Louver Door Assembler Name Role Phone Aly (RETIRED) Alfredo SANZ Primary Care Provider Unavailable Carrillo Zuluaga Unavailable [phone] REASON FOR VISIT screening colon Problems Problem Type SNOMED Code ICD Code Onset Dates Problem Status W/U Status Risk Notes Problem Diverticular disease of colon (813496686) Diverticulosis of large intestine without perforation or abscess without bleeding (K57.30) Active confirmed Encounters Encounter Location Date Provider Diagnosis [facility] [place] [address] [place], [place] [phone] 05/29/2024 Carrillo Zuluaga Colon cancer scree ino [...] Notes * JEFFREY HEALYNDOB:11/1954 (70 yo M)Acc No.[id number]:05/29/2024 COLON WITH MAC Patient: Tereso ESEQUIEL BLANDON Provider: Jeremiah Zuluaga MD :1955 A ge:68 Y S ex:Male Date:05/29/2024 Address:[address] [place] [address] [id number] Pcp:Alfredo Lu (RETIRED) MD Subjective: * Chief Complaints: * S creening colon Assessment: * Assessment: 1. C olon cancer screening - Z12.11 (Primary) 2 . C olon polyps - K63.5? 3. D iverticulosis of large intestine without perforation or abscess without bleeding - K57.30 4 . O ther hemorrhoids - K64.8 Plan: * Procedure Codes: 4 5385 LESION REMOVAL COLONOSCOPY, Modifiers: 33 Billing Information: * Procedure Codes: 79151 LESION REMOVAL COLONOSCOPY. Modifiers: 33 * The named appointment provid er may or may not be the originator of this progress note, and it is not deemed complete until electronically signed by the appointment provider. Sign off status: Pending * Provider: Jeremiah Zuluaga MD Date: 0 05/29/2024 Generated for Scooter richmond/Ava/eTransmitting on: 1 11/17/2024 04:56 PM EST
[2025-09-16 13:53] LABS: Hematocrit 41.9 % (42.0-52.0)
[2025-09-16 14:46] LABS: Prostate Specific Antigen 5.03 ng/mL (<0.05-4.0)
--- OUTSIDE RECORDS SUMMARY | 2025-09-16 16:57 | XMS_ITS | Patient Health Record ---
Author Organization [facility] Address [address] [place] [address] Care Team Providers Care Substation Operator Helper Generation Name Role Phone Aly (RETIRED) Alfredo SANZ Primary Care Provider Unavailable Carrillo Zuluaga Unavailable [phone] Allergies No Known Allergies Reason For Referral No Information Medications Medication SIG (Take, Route, Frequency, Duration) Notes Start Date End Date Status Lantus 100 UNIT/ML Solution INJECT 20 UNIT SUBCUTANEOUSLY EVERY EVENING AT 7 PM Subcutaneous; Duration: 90 Not-Taking/PRN Albuterol Sulfate HFA 108 (90 Base) MCG/ACT Aerosol Solution Inhalation; Duration: 30 Active Levemir 100 UNIT/ML Solution Subcutaneous; Duration: 50 Active Rosuvastatin Calcium 5 MG Tablet Oral; Duration: 90 Active Loratadine 10 MG Tablet TAKE 1 TABLET BY MOUTH EVERY DAY Oral Once a day Active Losartan Potassium-HCTZ 50-12.5 MG Tablet TAKE 1 TABLET BY MOUTH EVERY DAY Oral Once a day Active Testosterone Cypionate 200 MG/ML Solution (Schedule III Drug) INJECT 1 ML EVERY 2 WEEKS Intramuscular; Duration: 30 Active Glimepiride 2 MG Tablet 1 tablet with breakfast or the first main meal of the day Orally Once a day Not-Taking/PRN Omeprazole 20 MG Capsule Delayed Release 1 capsule Orally Once a day Active Imodium A-D 2 MG Tablet 1 or 2 Orally Every 4 to 6 hours as needed for diarrhea; Duration: 30 days 02/13/2024 Active Ventolin HFA 108 (90 Base) MCG/ACT Aerosol Solution Inhalation; Duration: 30 Active Dulcolax (colon prep) 5 MG Tablet Delayed Release take at 3:00 p.m and 7:00p.m. Orally two tablets twice a day for one day; Duration: 1 day 02/13/2024 Active Fluticasone Propionate 50 MCG/ACT Suspension ONE SPRAY EACH NOSTRIL NASALLY TWICE A DAY Nasal Twice a day Active MiraLax (colon prep) 17 GM/SCOOP Powder 1 238 Gm bottle mixed with Gatorade or Crystal Light Orally begin at 5:00 p.m. the day before the procedure; Duration: 1 day 02/13/2024 Active Flovent HFA 110 MCG/ACT Aerosol INHALE 2 PUFFS INTO THE LUNGS TWICE DAILY Inhalation; Duration: 90 Active Cetirizine HCl 10 MG Tablet TAKE 1 TABLET BY MOUTH EVERY DAY Oral Once a day Active Calcium Citrate 500 MG Capsule 1 tablet Orally Once a day Active Imodium A-D 2 MG Capsule 1 capsule as needed Orally Four times a day Active Tamsulosin HCl 0.4 MG Capsule Extended Release 1 capsule Orally Once a day Active Montelukast Sodium 10 MG Tablet 1 tablet Orally Once a day Active traZODone HCl 100 MG Tablet 1 tablet at bedtime as needed Orally Once a day Active metFORMIN HCl 1000 MG Tablet 1 tablet with a meal Orally twice a day Active Immunizations Vaccine Route Administration Date Status Comme nts Influenza Unknown 06/12/2018 Administered Social History Social History Additional Details Category Social Info Options Details Miscellaneous: Marital status: Occupation: Retired Caffeine: 1-2 cups per day Section Notes: He stopped smoking over 10 y ears ago, and denies any significant amounts of alcohol He stopped smoking over 10 y ears ago, and denies any significant amounts of alcohol He stopped smoking over 10 y ears ago, and denies any significant amounts of alcohol He stopped smoking over 10 y ears ago, and denies any significant amounts of alcohol He stopped smoking over 10 y ears ago, and denies any significant amounts of alcohol Problems Problem Type SNOMED Code ICD Code Onset Dates Problem Status W/U Status Risk Notes Problem Screening for malignant neoplasm of colon (341627589) Encounter for screening for malignant neoplasm of colon (Z12.11) Active confirmed Problem History of adenomatous polyp of colon (316026011) History of adenomatous polyp of colon (Z86.010) Active confirmed Problem Diverticular disease of colon (728401135) Diverticulosis of large intestine without perforation or abscess without bleeding (K57.30) Active confirmed Problem Gastroesophageal reflux disease without esophagitis (258677683) Gastroesophageal reflux disease without esophagitis (K21.9) Active confirmed Plan Of Treatment Pending Test Test Name Order Date Pathology 05/29/2024 Future Test Test Name Order Date UPPER GI ENDOSCOPY 06/24/2013 COLONOSCOPY 11/12/2018 COLONOSCOPY 02/13/2024 Insurance Providers Payer Name Payer Address Payer Phone Subscriber Number Group Number Insured Name Patient Relationship to Insured Coverage Start Date Coverage End Date [facility] [address] Attn Claims MARIS Good [id number] ESEQUIEL HEALY Self - patient is the [...]
[2025-09-19 23:56] LABS: TS Negative Control Passed; TS Panel A 5; TS Panel B 1; TS Positive Control Passed; TSpotTB Borderline (Negative)
== END 2025-09-16 13:03 | disposition home or self-care (01) ==
LOC: HO.LAB 13:02
PROVIDERS: Urology; PCP Internal Medicine; Visit Provider Internal Medicine
DX: Z12.5 Encounter for screening for malignant neoplasm of prostate (principal); Z11.1 Encounter for screening for respiratory tuberculosis; E29.1 Testicular hypofunction
CPT/HCPCS: 36415; 84153; 84403; 85014; 86481

== ENCOUNTER 2025-09-20 13:02 | Outpatient (REF) | payer OTHER, SELFPAY ==
--- OUTSIDE RECORDS SUMMARY | 2024-05-29 05:30 | XMS_ITS ---
Author Organization [facility] Address [address] [place] [address] Care Team Providers Care Mangle Press Catcher Name Role Phone Aly (RETIRED) Alfredo SANZ Primary Care Provider Unavailable Carrillo Zuluaga Unavailable [phone] REASON FOR VISIT screening colon Problems Problem Type SNOMED Code ICD Code Onset Dates Problem Status W/U Status Risk Notes Problem Diverticular disease of colon (158651795) Diverticulosis of large intestine without perforation or abscess without bleeding (K57.30) Active confirmed Encounters Encounter Location Date Provider Diagnosis [facility] [place] [address] [place], [place] [phone] 05/29/2024 Carrillo Zuluaga Colon cancer scree ino [...] Notes * JEFFREY HEALYNDOB:11/1954 (70 yo M)Acc No.[id number]:05/29/2024 COLON WITH MAC Patient: Tereso ESEQUIEL BLANDON Provider: Jeremiah Zuluaga MD :1955 A ge:68 Y S ex:Male Date:05/29/2024 Address:[address] [place] [address] [id number] Pcp:Alfredo Lu (RETIRED) MD Subjective: * Chief [...] Modifiers: 33 Billing Information: * Procedure Codes: 01785 LESION REMOVAL COLONOSCOPY. Modifiers: 33 * The named appointment provid er may or may not be the originator of this progress note, and it is not deemed complete until electronically signed by the appointment provider. Sign off status: Pending * Provider: Jeremiah Zuluaga MD Date: 0 05/29/2024 Generated for Scooter richmond/Ava/eTransmitting on: 1 11/21/2024 04:21 PM EST
--- NOTE | ~2025-09-20 | XR_ITS ---
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 FINDINGS: PA and lateral views of the chest are submitted. The lungs are expanded and clear. There is no pleural effusion, pneumothorax, or pulmonary vascular congestion. The heart is normal in size. There is degenerative disc disease of the spine. XR/XR chest 2V IMPRESSION: No acute cardiopulmonary abnormality. Electronically signed by: Carrillo Neal MD 09/20/2025 02:25 PM JUAN J
--- OUTSIDE RECORDS SUMMARY | 2025-09-20 16:22 | XMS_ITS | Patient Health Record ---
Author Organization [facility] Address [address] [place] [address] Care Team Providers Care Cattle Examiner Name Role Phone Aly (RETIRED) Alfredo SANZ Primary Care Provider Unavailable Carrillo Zuluaga Unavailable [phone] Allergies No Known Allergies Reason For Referral [...] Problem Screening for malignant neoplasm of colon (067618975) Encounter for screening for malignant neoplasm of colon (Z12.11) Active confirmed Problem History of adenomatous polyp of colon (954241465) History of adenomatous polyp of colon (Z86.010) Active confirmed Problem Diverticular disease of colon (653649344) Diverticulosis of large intestine without perforation or abscess without bleeding (K57.30) Active confirmed Problem Gastroesophageal reflux disease without esophagitis (776651219) Gastroesophageal reflux disease without esophagitis (K21.9) Active confirmed Plan Of Treatment Pending Test Test Name Order Date Pathology 05/29/2024 Future Test Test Name Order Date UPPER GI ENDOSCOPY 06/24/2013 COLONOSCOPY 11/12/2018 COLONOSCOPY 02/13/2024 Insurance Providers Payer Name Payer Address Payer Phone Subscriber Number Group Number Insured Name Patient Relationship to Insured Coverage Start Date Coverage End Date [facility] [address] Attn Claims MARIS Good [id number] ESEQUIEL HEALY Self - patient is the insured Medical (General) History Medical History History ICD Code Tubular adenoma removed in --had a neg colonoscopy in 09/2011 except for diverticulosis and internal hemorrhoids Gastroesophageal reflux--EGD in 06/2006-small HH, gastritis with H.pylori-Rx'd with PPI, Biaxin, Amoxicillen--EGD in 06/2013--small HH-no esophagitis, no Noel's Asthma IDDM since age 27 Hyperlipidemia Arthritis Denies [place], stroke, and renal disease Anxiety Hypertension Negative screening colonoscopy in November of 2018. Surgical History Surgery Date(Month/Year) Prostate surgery for BPH
== END 2025-09-20 13:03 | disposition home or self-care (01) ==
LOC: HO.XRAY 13:02
PROVIDERS: PCP Internal Medicine; Visit Provider Internal Medicine
DX: Z22.7 Latent tuberculosis (principal)
CPT/HCPCS: 71046

== ENCOUNTER → 2025-09-20 13:06 | Outpatient (BNV) | payer OTHER, SELFPAY | PROVIDERS: PCP Internal Medicine; Visit Provider Radiology Diagnostic Radiology | DX: Z22.7 Latent tuberculosis (principal) | CPT/HCPCS: 71046 ==